=== PATIENT | female | born 1960 | race American Indian/Alaskan Native ===

== ENCOUNTER 2016-03-02 09:57 | Emergency (ER) | payer MEDICARE ==
[2016-03-02] MEDS ORDERED: TORADOL IM ONE (13:25)
[2016-03-02 14:27] LABS: Eosinophils % (Auto) 1.9 % (0.0-4.3); Hematocrit 36.7 % (30.3-42.9); Hemoglobin 11.8 gm/dl (10.1-14.3); Mean Corpuscular HGB Conc 32 % (30-34); Mean Corpuscular Hemoglobin 32 pg (28-32); Mean Corpuscular Volume 100 fl (79-97); Platelet Count 238 K/mm3 (140-440); Red Blood Count 3.68 M/mm3 (3.65-5.03); Red Cell Distribution Width 15.6 % (13.2-15.2); White Blood Count 6.2 K/mm3 (4.5-11.0)
[2016-03-02 14:49] LABS: BUN/Creatinine Ratio 7.35; Calcium 10.6 mg/dL (8.4-10.2); Potassium 4.4 mmol/L (3.6-5.0)
[2016-03-02] MEDS ORDERED: SUBLIMAZE IM ONE (17:34)
[2016-03-02] MEDS ORDERED: ZOFRAN IM ONE (17:34)
--- NOTE | 2016-03-02 17:41 | Emergency Department Report ---
HPI - General Chief Complaint: Back Pain/Injury Time Seen by Provider: 03/02/16 13:24 - HPI HPI: Room 36 The patient is a 55-year-old female presenting with a chief complaint of back pain. The patient states for the past 2-3 days she has had pain in her right flank. The patient states 5 days ago she had episodes of nausea vomiting diarrhea. Yesterday the patient developed pain in the left upper quadrant and describes it as aching in nature. Patient denies any history of fever. Patient gives her pain score of 10/10. The patient is on dialysis and does not produce urine Location: [see above] Duration: [see above] Quality: Aching Severity: 12/02 Modifying factors: [see above] Context: [see above] Mode of transportation: [not driving] ED Past Medical Hx - Past Medical History Previous Medical History?: Yes Hx Hypertension: Yes (34YRS) Hx Heart Attack/AMI: Yes (2008) Hx Diabetes: Yes (31YRS) Hx GERD: Yes Hx Renal Disease: Yes (dialysis MWF) Hx Seizures: Yes ( X 3 ON DAY OF [place]) Hx Asthma: Yes Additional medical history: CAD - Surgical History Past Surgical History?: Yes Hx Coronary Stent: Yes (stent 2010,open heart surgery 2012) Hx Open Heart Surgery: Yes Additional Surgical History: CABG recently 11-23-2012, bilateral BKA. FISTULA LEFT UPPER ARM,: Biopsy, PD catheter placement and removal - Family History Family history: no significant - Social History Smoking Status: Never Smoker Substance Use Type: Non Opiate Pain, Prescribed - Medications Home Medications: Home Medications Medication Instructions Recorded Confirmed Last Taken Type Acetaminophen [Acetaminophen 325 mg PO Q6HR PRN 12/08/12 09/25/15 04/08/15 History SUPPOS] Cyanocobalamin/Folic Acid [Vitamin 1 each PO DAILY 12/08/12 09/25/15 09/24/15 History B12-Fiidk Acid Tablet] Ezetimibe [Zetia] 10 mg PO QDAY 12/08/12 09/25/15 09/24/15 History Lisinopril [Zestril TAB] 40 mg PO QDAY 12/08/12 09/25/15 09/24/15 History Metoprolol [Lopressor TAB] 25 mg PO BID #60 tablet 10/18/14 09/25/15 04/08/15 Rx amLODIPine [Norvasc] 10 mg PO DAILY #30 tablet 10/18/14 09/25/15 09/23/15 Rx Atorvastatin [Lipitor] 40 mg PO QHS 04/09/15 09/25/15 09/24/15 History Sitagliptin Phosphate [Januvia] 100 mg PO DAILY 04/09/15 09/25/15 09/24/15 History hydrALAZINE [Apresoline TAB] 25 mg PO BID 04/09/15 09/25/15 09/23/15 History Clopidogrel [Plavix] 75 mg PO QDAY #30 tablet 04/11/15 09/25/15 09/24/15 Rx Aspirin EC [Aspirin Enteric Coated 81 mg PO QDAY #30 tablet. 04/22/1509/24/15 Rx TAB] Omeprazole [Omeprazole] 40 mg PO QDAY 06/13/15 09/25/15 09/24/15 History Biotin 5,000 mcg PO BID 09/25/15 09/25/15 09/24/15 History Calcium Acetate [Phoslo] 667 mg PO TID 09/25/15 09/25/15 09/24/15 History Cinacalcet HCl [Sensipar] 90 mg PO DAILY 09/25/15 09/25/15 09/24/15 History Ezetimibe [Zetia] 10 mg PO DAILY 09/25/15 09/25/15 09/24/15 History Ferric Citrate (Nf) [Auryxia (Nf)] 210 mg PO TID 09/25/15 09/25/15 09/24/15 History Nitroglycerin [Nitrostat] 0.4 mg SL Q5M PRN 09/25/15 09/25/15 Unknown History Pantoprazole [Protonix] 40 mg PO BID 09/25/15 09/25/15 Unknown History Sucralfate [Carafate] 1 gm PO Q6HR PRN 09/25/15 09/25/15 Unknown History Vit B Cplx #11/FA/C/Biot/Zn Ox 800 mg PO DAILY 09/25/15 09/25/15 09/22/15 History [Dialyvite with Zinc Tablet] Vit D2 50,000 units PO Q12W 09/25/15 09/25/15 Unknown History Docusate Sodium [Colace] 100 mg PO BID PRN #60 capsule 03/02/16 Unknown Rx HYDROcodone/APAP 5-325 [[place] 1 - 2 each PO Q6HR PRN #14 tablet 03/02/16 Unknown Rx 5/325] ED Review of Systems ROS: Stated complaint: BACK PAIN Other details as noted in HPI Comment: All other systems reviewed and negative Constitutional: denies: chills, fever Eyes: denies: eye pain, eye discharge, vision change ENT: denies: ear pain, throat pain Respiratory: denies: cough, shortness of breath, wheezing Cardiovascular: denies: chest pain, palpitations Endocrine: no symptoms reported Gastrointestinal: abdominal pain, nausea, vomiting, diarrhea Genitourinary: denies: urgency, dysuria, discharge Musculoskeletal: back pain Skin: denies: rash, lesions Neurological: denies: headache, weakness, paresthesias Psychiatric: denies: anxiety, depression Hematological/Lymphatic: denies: easy bleeding, easy bruising Physical Exam - Physical Exam Vital Signs: Vital Signs 03/02/16 03/02/16 10:21 14:38 Temperature 98.4 F 98.2 F Pulse Rate 93 H 78 Respiratory 22 20 Rate Blood Pressure 180/68 Blood Pressure 204/74 [Right] O2 Sat by Pulse 96 98 Oximetry Physical Exam: GENERAL: The patient is well-developed well-nourished female standing in room not appearing to be in acute distress. [] HEENT: Normocephalic. Atraumatic. Extraocular motions are intact. Patient has moist mucous membranes. NECK: Supple. Trachea midline CHEST/LUNGS: Clear to auscultation. There is no respiratory distress noted. HEART/CARDIOVASCULAR: Regular. There is no tachycardia. There is no gallop rub or murmur. ABDOMEN: Abdomen is soft, with mild discomfort to palpation in the left upper quadrant. There is no rebound or guarding. There is no tenderness elsewhere in the abdomen. Patient has normal bowel sounds. There is no abdominal distention. SKIN: There is no rash. There is no edema. There is no diaphoresis. NEURO: The patient is awake, alert, and oriented. The patient is cooperative. The patient has normal speech MUSCULOSKELETAL: There is no evidence of acute injury. ED Course Vital Signs 03/02/16 03/02/16 10:21 14:38 Temperature 98.4 F 98.2 F Pulse Rate 93 H 78 Respiratory 22 20 Rate Blood Pressure 180/68 Blood Pressure 204/74 [Right] O2 Sat by Pulse 96 98 Oximetry ED Medical Decision Making - Lab Data Result diagrams: 03/02/16 14:17 03/02/16 14:17 Laboratory Tests 03/02/16 03/02/16 14:17 14:17 WBC 6.2 RBC 3.68 Hgb 11.8 Hct 36.7 MCV 100 H MCH 32 MCHC 32 RDW 15.6 H Plt Count 238 Lymph % (Auto) 26.1 [place] % (Auto) 9.8 H Eos % (Auto) 1.9 Baso % (Auto) 1.0 Lymph # 1.6 [place] # 0.6 Eos # 0.1 Baso # 0.1 Seg Neutrophils % 61.2 Seg Neutrophils # 3.8 Sodium 135 L Potassium 4.4 Chloride 92.0 L Carbon Dioxide 23 Anion Gap 24 BUN 64 H Creatinine 8.7 H Estimated GFR 6 BUN/Creatinine Ratio 7.35 Glucose 174 H Calcium 10.6 H - Radiology Data Radiology results: report reviewed (CT abdomen and pelvis), image reviewed (CT abdomen and pelvis) CT abdomen and pelvis (read by radiologist)- there is likely mild right-sided constipation. Pancreatic duct is mildly dilated and slightly increased in size from prior study. Exact etiology is uncertain. Correlation with contrast enhanced MRI of the pancreas may be useful to shorten no small obstructing mass in the head of the pancreas. - Differential Diagnosis splenomegaly, PUD, gastritis Critical care attestation.: If time is entered above; I have spent that time in minutes in the direct care of this critically ill patient, excluding procedure time. ED Disposition Clinical Impression: Acute abdominal pain, ESRD (end stage renal disease) on dialysis, Constipation Disposition: DISCHARGED TO HOME OR SELFCARE Is pt being admited?: No Does the pt Need Aspirin: No Condition: Stable Instructions: Chronic Kidney Disease (ED) Additional Instructions: Return to the emergency department immediately should you develop worsening symptoms, fever, inability to tolerate food or liquid or any other concerns. Prescriptions: Docusate Sodium [Colace] 100 mg PO BID PRN #60 capsule PRN Reason: Constipation HYDROcodone/APAP 5-325 [[place] 5/325] 1 - 2 each PO Q6HR PRN #14 tablet PRN Reason: Pain Referrals: PRIMARY CARE, [Primary Care Provider] - 3-5 Days DAVY FRIEND MD [Staff Physician] - [facility] (Dr. Friend is a cotton broker. Please follow up with him for further evaluation of her pancreas) Time of Disposition: 18:57
--- NOTE | 2016-03-02 18:48 | Cat Scan Report ---
FINAL REPORT PROCEDURE: CT ABDOMEN PELVIS WO CON TECHNIQUE: Computerized axial tomography of the abdomen and pelvis was performed without intravenous contrast. This study is performed without intravascular contrast material and its sensitivity for abdominal and pelvic pathology, including neoplasms, inflammation, abscess, free fluid, thrombosis, arterial dissection and infarction, is reduced compared with a contrast enhanced study. HISTORY: right flank pain, left upper quadrant abdominal pain COMPARISON: CT exam dated April 17, 2015 FINDINGS: Likely CHF is present and there may be mild pulmonary edema. No pleural effusions are seen at the lung bases. Vague hypodense lesion in the superior aspect of the spleen was likely present on prior study but is better seen on today's exam. 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 Diffuse vascular calcifications are seen in the abdomen. Liver and gallbladder display no abnormality. There is mild dilation of the pancreatic duct which is slightly more prominent than prior study measuring 5 millimeters in diameter. No pancreatic mass is seen by this study Adrenal glands and abdominal aorta are normal in size. Left kidney is atretic and both kidneys have multiple hypodense and hyperdense lesions likely due to polycystic renal disease, similar to prior study. Bladder is decompressed and not well evaluated. Diffuse vascular calcifications are seen in the pelvis. Tiny inguinal hernias are seen containing fat. No free pelvic fluid is seen. No adnexal masses are seen. Mild colonic diverticula are seen without evidence of diverticulitis. There is likely mild right-sided constipation. Normal appendix is seen. IMPRESSION: There is likely mild right-sided constipation. Pancreatic duct is mildly dilated and slightly increased in size from prior study. Exact etiology is uncertain. Correlation with contrast-enhanced MRI of the pancreas may be useful to assure no small obstructing mass in the head of the pancreas. Likely CHF and possible mild pulmonary edema are seen.
[2016-03-02 19:18] VITALS: BP 157/74
== END 2016-03-02 19:17 | disposition home or self-care (01) ==
LOC: ED 09:57
DX: E11.22 Type 2 diabetes mellitus with diabetic chronic kidney disease (principal); I12.0 Hypertensive chronic kidney disease with stage 5 chronic kidney disease or end stage renal disease; N18.6 End stage renal disease; K59.00 Constipation, unspecified; I25.2 Old myocardial infarction; K21.9 Gastro-esophageal reflux disease without esophagitis; J45.909 Unspecified asthma, uncomplicated; R56.9 Unspecified convulsions; I25.10 Atherosclerotic heart disease of native coronary artery without angina pectoris; Z99.2 Dependence on renal dialysis; Z79.82 Long term (current) use of aspirin; Z95.1 Presence of aortocoronary bypass graft; Z98.890 Other specified postprocedural states
CPT/HCPCS: 36415; 74176; 80048; 85025; 96372; 99284; J1885; J2405; J3010

== ENCOUNTER 2016-07-20 19:39 | Inpatient (IN) | payer MEDICARE ==
[2016-07-20 20:31] LABS: Basophils % (Auto) 0.6 % (0.0-1.8); Eosinophils % (Auto) 2.3 % (0.0-4.3); Hematocrit 29.3 % (30.3-42.9); Hemoglobin 9.5 gm/dl (10.1-14.3); Mean Corpuscular HGB Conc 32 % (30-34); Mean Corpuscular Hemoglobin 32 pg (28-32); Mean Corpuscular Volume 99 fl (79-97); Platelet Count 149 K/mm3 (140-440); Red Blood Count 2.98 M/mm3 (3.65-5.03); Red Cell Distribution Width 17.2 % (13.2-15.2); White Blood Count 5.5 K/mm3 (4.5-11.0)
[2016-07-20 20:49] LABS: BUN/Creatinine Ratio 8.91; Calcium 9.5 mg/dL (8.4-10.2); Chloride 87.1 mmol/L (98-107); Potassium 5.2 mmol/L (3.6-5.0)
--- NOTE | 2016-07-20 21:27 | XRay Report ---
FINAL REPORT EXAM: XR CHEST ROUTINE 2V HISTORY: difficulty breathing TECHNIQUE: 2 views of the chest. PRIORS: 04/09/2015 FINDINGS: There are multiple sternotomy wires and mediastinal clips consistent with prior CABG. The pulmonary vascularity is prominent, increased from the comparison exam. The cardiac silhouette is mildly enlarged also increased from the comparison exam. There is mild blunting of the bilateral costophrenic angles. The bones and soft tissues are unremarkable. IMPRESSION: Findings are consistent with CHF with small bilateral pleural effusions.
[2016-07-21] MEDS ORDERED: ZOFRAN IV ONE (00:27)
--- NOTE | 2016-07-21 00:29 | Emergency Department Report ---
ED Chest Pain HPI - General Chief Complaint: Chest Pain Stated Complaint: CP/SUSIE/ABD PAIN Time Seen by Provider: 07/21/16 00:14 Source: patient Mode of arrival: Ambulatory Limitations: Physical Limitation - History of Present Illness Initial Comments: 56-year-old female presents to the emergency department complaining of chest pain. Patient states she began having vague mid sternal chest pain yesterday. She reports shortness of breath and nausea. Symptoms have been constant since onset. Patient states she was dialyzed last Thursday per schedule. She states that she was told after her fourth treatment that she was still 7 kg over her normal weight. There are no other complaints. MD Complaint: chest pain -: Gradual, days(s) (1) Onset: during rest Pain Location: substernal Pain Radiation: none Severity: severe Severity scale (0 -10): 8 Quality: heaviness Consistency: constant Improves With: nothing Worsens With: nothing re: nausea, dyspnea. denies: vomting, diaphoresis Treatments Prior to Arrival: none Aspirin use within the Past 7 Days: (0) No - Related Data Home Medications Medication Instructions Recorded Confirmed Last Taken Acetaminophen [Acetaminophen 325 mg PO Q6HR PRN 12/08/12 09/25/15 04/08/15 SUPPOS] Cyanocobalamin/Folic Acid [Vitamin 1 each PO DAILY 12/08/12 09/25/15 09/24/15 U15-Pbsar Acid Tablet] Ezetimibe [Zetia] 10 mg PO QDAY 12/08/12 09/25/15 09/24/15 Lisinopril [Zestril TAB] 40 mg PO QDAY 12/08/12 09/25/15 09/24/15 Atorvastatin [Lipitor] 40 mg PO QHS 04/09/15 09/25/15 09/24/15 Sitagliptin Phosphate [Januvia] 100 mg PO DAILY 04/09/15 09/25/15 09/24/15 hydrALAZINE [Apresoline TAB] 25 mg PO BID 04/09/15 09/25/15 09/23/15 Omeprazole [Omeprazole] 40 mg PO QDAY 06/13/15 09/25/15 09/24/15 Biotin 5,000 mcg PO BID 09/25/15 09/25/15 09/24/15 Calcium Acetate [Phoslo] 667 mg PO TID 09/25/15 09/25/15 09/24/15 Cinacalcet HCl [Sensipar] 90 mg PO DAILY 09/25/15 09/25/15 09/24/15 Ezetimibe [Zetia] 10 mg PO DAILY 09/25/15 09/25/15 09/24/15 Ferric Citrate (Nf) [Auryxia (Nf)] 210 mg PO TID 09/25/15 09/25/15 09/24/15 Nitroglycerin [Nitrostat] 0.4 mg SL Q5M PRN 09/25/15 09/25/15 Unknown Pantoprazole [Protonix] 40 mg PO BID 09/25/15 09/25/15 Unknown Sucralfate [Carafate] 1 gm PO Q6HR PRN 09/25/15 09/25/15 Unknown Vit B Cplx #11/FA/C/Biot/Zn Ox 800 mg PO DAILY 09/25/15 09/25/15 09/22/15 [Dialyvite with Zinc Tablet] Vit D2 50,000 units PO Q12W 09/25/15 09/25/15 Unknown Previous Rx's Medication Instructions Recorded Last Taken Type Metoprolol [Lopressor TAB] 25 mg PO BID #60 tablet 10/18/14 04/08/15 Rx amLODIPine [Norvasc] 10 mg PO DAILY #30 tablet 10/18/14 09/23/15 Rx Clopidogrel [Plavix] 75 mg PO QDAY #30 tablet 04/11/15 09/24/15 Rx Aspirin EC [Aspirin Enteric Coated 81 mg PO QDAY #30 tablet. 04/22/15 Rx TAB] Docusate Sodium [Colace] 100 mg PO BID PRN #60 capsule 03/02/16 Unknown Rx HYDROcodone/APAP 5-325 [[place] 1 - 2 each PO Q6HR PRN #14 tablet 03/02/16 Unknown Rx 5/325] Allergies Allergy/AdvReac Type Severity Reaction Status Date / Time iodine Allergy Shortness Verified 04/17/15 22:31 of Breath shellfish derived Allergy Shortness Verified 09/20/13 16:36 of Breath ROSALBA score - Rosalba Score Age > 65: (0) No Aspirin use within the Past 7 Days: (1) Yes 3 or more CAD Risk Factors: (1) Yes 2 or more Angina events in past 24 hrs: (1) Yes Known CAD with more than 50% Stenosis: (1) Yes Elevated Cardiac Markers: (1) Yes ST Deviation Greater than 0.5mm: (0) No ROSALBA Score: 5 ED Review of Systems ROS: Stated complaint: CP/SUSIE/ABD PAIN Other details as noted in HPI Comment: All other systems reviewed and negative Respiratory: shortness of breath Cardiovascular: chest pain Gastrointestinal: nausea ED Past Medical Hx - Past Medical History Previous Medical History?: Yes Hx Hypertension: Yes (34YRS) Hx Heart Attack/AMI: Yes (2008) Hx Diabetes: Yes (31YRS) Hx GERD: Yes Hx Renal Disease: Yes (dialysis ) Hx Seizures: Yes ( X 3 ON DAY OF [place]) Hx Asthma: Yes Additional medical history: CAD - Surgical History Past Surgical History?: Yes Hx Coronary Stent: Yes (stent 2010,open heart surgery 2012) Hx Open Heart Surgery: Yes Additional Surgical History: CABG recently 11-23-2012, bilateral BKA. FISTULA LEFT UPPER ARM,: Biopsy, PD catheter placement and removal - Family History Family history: no significant - Social History Smoking Status: Never Smoker Substance Use Type: None - Medications Home Medications: Home Medications Medication Instructions Recorded Confirmed Last Taken Type Acetaminophen [Acetaminophen 325 mg PO Q6HR PRN 12/08/12 09/25/15 04/08/15 History SUPPOS] Cyanocobalamin/Folic Acid [Vitamin 1 each PO DAILY 12/08/12 09/25/15 09/24/15 History E65-[id number] Acid Tablet] Ezetimibe [Zetia] 10 mg PO QDAY 12/08/12 09/25/15 09/24/15 History Lisinopril [Zestril TAB] 40 mg PO QDAY 12/08/12 09/25/15 09/24/15 History Metoprolol [Lopressor TAB] 25 mg PO BID #60 tablet 10/18/14 09/25/15 04/08/15 Rx amLODIPine [Norvasc] 10 mg PO DAILY #30 tablet 10/18/14 09/25/15 09/23/15 Rx Atorvastatin [Lipitor] 40 mg PO QHS 04/09/15 09/25/15 09/24/15 History Sitagliptin Phosphate [Januvia] 100 mg PO DAILY 04/09/15 09/25/15 09/24/15 History hydrALAZINE [Apresoline TAB] 25 mg PO BID 04/09/15 09/25/15 09/23/15 History Clopidogrel [Plavix] 75 mg PO QDAY #30 tablet 04/11/15 09/25/15 09/24/15 Rx Aspirin EC [Aspirin Enteric Coated 81 mg PO QDAY #30 tablet. 04/22/1509/24/15 Rx TAB] Omeprazole [Omeprazole] 40 mg PO QDAY 06/13/15 09/25/15 09/24/15 History Biotin 5,000 mcg PO BID 09/25/15 09/25/15 09/24/15 History Calcium Acetate [Phoslo] 667 mg PO TID 09/25/15 09/25/15 09/24/15 History Cinacalcet HCl [Sensipar] 90 mg PO DAILY 09/25/15 09/25/15 09/24/15 History Ezetimibe [Zetia] 10 mg PO DAILY 09/25/15 09/25/15 09/24/15 History Ferric Citrate (Nf) [Auryxia (Nf)] 210 mg PO TID 09/25/15 09/25/15 09/24/15 History Nitroglycerin [Nitrostat] 0.4 mg SL Q5M PRN 09/25/15 09/25/15 Unknown History Pantoprazole [Protonix] 40 mg PO BID 09/25/15 09/25/15 Unknown History Sucralfate [Carafate] 1 gm PO Q6HR PRN 09/25/15 09/25/15 Unknown History Vit B Cplx #11/FA/C/Biot/Zn Ox 800 mg PO DAILY 09/25/15 09/25/15 09/22/15 History [Dialyvite with Zinc Tablet] Vit D2 50,000 units PO Q12W 09/25/15 09/25/15 Unknown History Docusate Sodium [Colace] 100 mg PO BID PRN #60 capsule 03/02/16 Unknown Rx HYDROcodone/APAP 5-325 [[place] 1 - 2 each PO Q6HR PRN #14 tablet 03/02/16 Unknown Rx 5/325] ED Physical Exam - General Limitations: No Limitations General appearance: alert, in no apparent distress - Head Head exam: Present: atraumatic, normocephalic - Eye Eye exam: Present: normal appearance, PERRL, EOMI - ENT ENT exam: Present: normal exam, normal orophraynx, mucous membranes moist - Neck Neck exam: Present: normal inspection, full ROM. Absent: tenderness - Respiratory Respiratory exam: Present: decreased breath sounds (bilateral posterior bases). Absent: respiratory distress - Cardiovascular Cardiovascular Exam: Present: regular rate, normal rhythm, normal heart sounds - GI/Abdominal GI/Abdominal exam: Present: soft, normal bowel sounds. Absent: distended, tenderness - Extremities Exam Extremities exam: Present: normal inspection, full ROM, other (patient is s/p right BKA and left AKA). Absent: tenderness - Back Exam Back exam: Present: normal inspection, full ROM. Absent: tenderness - Neurological Exam Neurological exam: Present: alert, oriented X3. Absent: motor sensory deficit - Skin Skin exam: Present: warm, dry, intact ED Course Vital Signs 07/20/16 20:01 Temperature 98.2 F Pulse Rate 94 H Respiratory 20 Rate Blood Pressure 166/72 Blood Pressure 166/92 [Right] O2 Sat by Pulse 95 Oximetry ED Medical Decision Making - Lab Data Result diagrams: 07/20/16 20:18 07/20/16 20:18 - EKG Data -: EKG Interpreted by Ne EKG shows normal: sinus rhythm, axis, intervals, ST-T waves Rate: normal - EKG Data When compared to previous EKG there are: previous EKG unavailable Interpretation: LVH - Radiology Data Radiology results: report reviewed, image reviewed Chest x-ray shows findings consistent with CHF and bilateral pleural effusions. - Medical Decision Making Lab and imaging results reviewed and discussed with the patient. Patient has had a nonischemic ECG and 2 troponins that, although elevated, are less than previous and are unchanged. I have spoken with Dr. Wilson, nephrology. Patient is to be admitted by the hospitalist for dialysis later this morning. - Differential Diagnosis ACS, volume overload, CHF Critical care attestation.: If time is entered above; I have spent that time in minutes in the direct care of this critically ill patient, excluding procedure time. ED Disposition Clinical Impression: Chest pain, rule out acute myocardial infarction, ESRD (end stage renal disease ) on dialysis Disposition: OP ADMITTED IP TO THIS HOSP Is pt being admited?: Yes Condition: Stable Instructions: Chest Pain (ED) Referrals: HAYDEN KONG MD [Primary Care Provider] - 3-5 Days Time of Disposition: 00:29
[2016-07-21] MEDS ORDERED: D50W (25GM) IV PRN (00:57)
[2016-07-21] MEDS ORDERED: PERCOCET 5/325 PO PRN (00:57)
[2016-07-21] MEDS ORDERED: MILK OF MAGNESIA PO PRN (00:57)
[2016-07-21] MEDS ORDERED: ZOFRAN IV PRN (00:57)
[2016-07-21] MEDS ORDERED: TYLENOL PO PRN (00:57)
[2016-07-21] MEDS ORDERED: DULCOLAX PR PRN (00:57)
[2016-07-21] MEDS ORDERED: PROVENTIL IH PRN (00:57)
--- NOTE | 2016-07-21 01:05 | History and Physical Report ---
History of Present Illness Date of examination: 07/20/16 History of present illness: 56-year-old lady with history of hypertension, diabetes, coronary artery disease , end-stage renal disease on dialysis ,peptic ulcer disease comes into the emergency because of shortness of breath. She states she feels like she is drowning when she lies down, admits to PND, orthopnea. She stated she had an extra 7 kg weight and was told by dialysis nurse to go to the emergency room if she develops shortness of breath. Also complaining of chest pain in the epigastric area which she described as sharp pain, intermittent in nature lasting for 15 minutes, intensity 5/10, no radiation and she can't identify exacerbating or relieving factors. She had a stress test a few months ago Patient denies cough, abdominal pain, hematochezia, dysuria, frequency, focal weakness, dysarthria, fever chills, polydipsia polyuria, hot or cold intolerance , easy bruisability, or rash or bleeding from mucosal membrane, rhinorrhea, epistaxis, earache, tinnitus, blurry vision, eye discharge, anxiety, depression. Other review of systems negative PAST SURGICAL HISTORY: Status post CABG, bilateral BKA SOCIAL HISTORY: No alcohol, tobacco, drugs FAMILY HISTORY: Hypertension Medications and Allergies Allergies Allergy/AdvReac Type Severity Reaction Status Date / Time iodine Allergy Shortness Verified 04/17/15 22:31 of Breath shellfish derived Allergy Shortness Verified 09/20/13 16:36 of Breath Home Medications Medication Instructions Recorded Confirmed Last Taken Type Acetaminophen [Acetaminophen 325 mg PO Q6HR PRN 12/08/12 09/25/15 04/08/15 History SUPPOS] Cyanocobalamin/Folic Acid [Vitamin 1 each PO DAILY 12/08/12 09/25/15 09/24/15 History K74-Fanyo Acid Tablet] Ezetimibe [Zetia] 10 mg PO QDAY 12/08/12 09/25/15 09/24/15 History Lisinopril [Zestril TAB] 40 mg PO QDAY 12/08/12 09/25/15 09/24/15 History Metoprolol [Lopressor TAB] 25 mg PO BID #60 tablet 10/18/14 09/25/15 04/08/15 Rx amLODIPine [Norvasc] 10 mg PO DAILY #30 tablet 10/18/14 09/25/15 09/23/15 Rx Atorvastatin [Lipitor] 40 mg PO QHS 04/09/15 09/25/15 09/24/15 History Sitagliptin Phosphate [Januvia] 100 mg PO DAILY 04/09/15 09/25/15 09/24/15 History hydrALAZINE [Apresoline TAB] 25 mg PO BID 04/09/15 09/25/15 09/23/15 History Clopidogrel [Plavix] 75 mg PO QDAY #30 tablet 04/11/15 09/25/15 09/24/15 Rx Aspirin EC [Aspirin Enteric Coated 81 mg PO QDAY #30 tablet. 04/22/1509/24/15 Rx TAB] Omeprazole [Omeprazole] 40 mg PO QDAY 06/13/15 09/25/15 09/24/15 History Biotin 5,000 mcg PO BID 09/25/15 09/25/15 09/24/15 History Calcium Acetate [Phoslo] 667 mg PO TID 09/25/15 09/25/15 09/24/15 History Cinacalcet HCl [Sensipar] 90 mg PO DAILY 09/25/15 09/25/15 09/24/15 History Ezetimibe [Zetia] 10 mg PO DAILY 09/25/15 09/25/15 09/24/15 History Ferric Citrate (Nf) [Auryxia (Nf)] 210 mg PO TID 09/25/15 09/25/15 09/24/15 History Nitroglycerin [Nitrostat] 0.4 mg SL Q5M PRN 09/25/15 09/25/15 Unknown History Pantoprazole [Protonix] 40 mg PO BID 09/25/15 09/25/15 Unknown History Sucralfate [Carafate] 1 gm PO Q6HR PRN 09/25/15 09/25/15 Unknown History Vit B Cplx #11/FA/C/Biot/Zn Ox 800 mg PO DAILY 09/25/15 09/25/15 09/22/15 History [Dialyvite with Zinc Tablet] Vit D2 50,000 units PO Q12W 09/25/15 09/25/15 Unknown History Docusate Sodium [Colace] 100 mg PO BID PRN #60 capsule 03/02/16 Unknown Rx HYDROcodone/APAP 5-325 [[place] 1 - 2 each PO Q6HR PRN #14 tablet 03/02/16 Unknown Rx 5/325] Exam - Physical Exam Narrative exam: General Apperance: The patient sitting in bed no acute distress HEENT: Normocephalic, atraumatic. Pupils equally round and reactive to light, extraocular movement intact, and no sclericterus or JVD or thyromegaly or nodule. Neck supple, no carotid bruit, mucous membranes moist, no exudate or erythema Heart: S1-S2, regular is rhythm Lungs: Clear to auscultation bilaterally, breathing comfortable Abdomen: Positive bowel sounds, soft,tender lower quadrant, nondistended, no organomegaly Extremities: Below-knee amputation bilateral, No edema cyanosis clubbing Skin: no rash, nodule, warm and dry Neuro: Cranial nerves II through XII intact, speech is fluent, motor intact , sensation intact Rectal, black stool, heme positive - Constitutional Vitals: Temp Pulse Resp BP Pulse Ox 98.2 F 94 H 20 166/92 95 07/20/16 20:01 07/20/16 20:01 07/20/16 20:01 07/20/16 20:01 07/20/16 20:01 Results - Labs CBC & Chem 7: 07/22/16 04:41 07/22/16 04:41 Labs: Abnormal lab results 07/20/16 07/20/16 07/20/16 Range/Units 20:18 20:18 23:36 RBC 2.98 L (3.65-5.03) M/mm3 Hgb 9.5 L (10.1-14.3) gm/dl Hct 29.3 L (30.3-42.9) % MCV 99 H (79-97) fl RDW 17.2 H (13.2-15.2) % [place] % (Auto) 8.2 H (0.0-7.3) % Lymph # 0.8 L (1.2-5.4) K/mm3 Seg Neutrophils % 74.3 H (40.0-70.0) % Sodium 130 L (137-145) mmol/L Potassium 5.2 H (3.6-5.0) mmol/L Chloride 87.1 L (98-107) mmol/L BUN 66 H (7-17) mg/dL Creatinine 7.4 H (0.7-1.2) mg/dL Glucose 472 H (65-100) mg/dL Troponin T 0.080 H 0.088 H (0.00-0.029) ng/mL - Imaging and Cardiology EKG: image reviewed Chest x-ray: image reviewed Assessment and Plan fluid overload End-stage renal disease on dialysis Chest pain Hypertension Diabetes2 Coronary artery disease Admit to medicine Consult renal for dialysis Check Fingersticks and start insulin sliding-scale Consult cardiology, check cardiac enzymes Continue appropriate outpatient medications, start hydralazine for blood pressure control d-dimer positive, check v/q scan
[2016-07-21] MEDS ORDERED: ZOFRAN ONE (02:24)
--- NOTE | 2016-07-21 04:13 | Admit Criteria Form ---
Admission Criteria Documentation: CHEST PAIN Clinical Indications for Admission to Inpatient Care (Place 'X' for any and all applicable criteria): Admission is indicated for chest pain and ANY ONE of the following(1)(2)(3)(4)(5 ): [ ]I. Angina with acute coronary syndrome (Also use Myocardial Infarction or Angina guideline) [ ]II. Hemodynamic instability [X ]III. Angina needing acute intervention as indicated by ALL of the following (11)(12): [ X]a) Unstable angina is present as indicated by angina that is ANY ONE of the following: [ X]i) New onset [ ]ii) Nocturnal [ ]iii) Prolonged at rest [ ]iv) Progressive [ X]b) Angina warrants acute intervention as indicated by ANY ONE of the following: [ ]i) Recurrent angina (e.g, not responding as previously to treatment) [ ]ii) Angina at rest or with low-level activities despite initial medical therapy [ ]iii) New or presumably new ST-segment depression on ECG [X ]iv) Signs or symptoms of heart failure (eg, dyspnea, pulmonary edema) [ ]v) New or worsening mitral regurgitation [ ]vi) Hemodynamic instability [ ]vii) Dangerous arrhythmia (eg, sustained ventricular tachycardia) [ ]viii) History of percutaneous coronary intervention within 6 months [ ]ix) History of coronary artery bypass graft surgery [ X]x) ROSALBA risk score of 2 or greater[A] [ ]xi) History of Diabetes(14) [ ]xii) High-risk cardiac ischemia findings on noninvasive testing (e.g, echocardiogram, treadmill testing, nuclear scan) [ ]xiii) Chronic renal insufficiency (ie, estimated GFR less than 60 mL/min/1.732m) [ ]xiv) Left ventricular ejection fraction less than 40% [ ]IV. Evidence of NE (eg, cardiac biomarkers positive, ST-segment elevation on ECG) also use Myocardial Infarction Criteria Form. [ ]V. Pulmonary edema [ ]. Respiratory distress [ ]VII. Chest pain indicative of serious diagnosis other than coronary artery disease (eg, aortic dissection) [ ]VIII. Contraindications and/or Inappropriate clinical situations for Observational Care in patients with Chest Pain, when ANY ONE of the following is required: [ ]a) Patient with risk factor for pulmonary embolism, acute coronary syndrome and myocardial infarction (18) [ ]b) Patient with Pulmonary embolism require an average LOS of 4.3 days, therefore emergency department observation management is inappropriate 18,23 [ ]c) Painful condition/s in the elderly, have the highest rate of recidivism after emergency department observation management (10.8%) 20,21,22 [ ]d) Elevated cardiac biomarker requires intensive and exhaustive care (19) [ ]IX. General contraindications and/or Inappropriate clinical situations for Observational Care in patients with Chest Pain, when ANY ONE of the following is required: [ ]a) Prediction of prolongation of LOS based on ANY ONE of the following may be considered as a contraindication for observational care 2, 3, 4, 5, 6, 7, 8, 9, 10, 11 [ ]i) Age > 65 yrs. [ ]ii) Patient arriving by ambulance [ ]iii) Patient with high acuity [ ]iv) Patient requiring vital sign monitoring [ ]v) Patient on IV medication [ ]b) Systolic blood pressures 180mmHg 3,12 [ ]c) Patient with altered mental status including delirium and other alteration of consciousness, (3) [ ]d) Patient whose discharge disposition will be to a snf home or rehabilitation home should not be managed in Emergency Department Observation Unit. CMS rule requires 3 days hospital stay before such placement. 3,13 [ ]e) Patient with failure to thrive due to broad array of etiologies 3,16,17 [ ]f) Inability to ambulate 3,14 Extended stay beyond goal length of stay may be needed for (1)(28): [ ]a) Specific condition diagnosed after evaluation (eg, pulmonary embolism, aortic dissection) [ ]b) Unstable angina [ ]c) Continued suspicion of acute coronary syndrome with inability to complete needed cardiac evaluation (eg, patient clinically unable to undergo stress testing) [ ]d) Myocardial infarction (Contents from ANGINA and CHEST PAIN clinical indications for admission to inpatient care have been integrated in this form) The original [employer] content created by [employer] has been revised. The portions of the content which have been revised are identified through the use of italic text or in bold, and [facility] has neither reviewed nor approved the modified material. All other unmodified content is copyright [employer]. Please see references footnoted in the original [facility] edition 2016 Admission Criteria Met: Yes
[2016-07-21 05:49] LABS: Creatine Kinase MB 2.3 ng/mL (0.0-4.0)
--- NOTE | 2016-07-21 11:50 | Progress Note ---
Assessment and Plan Assessment and plan: Chest pain. Troponin mildly elevated at 0.080. Cardiology consulted ESRD on hemodialysis, Thu, Wednesdays and Fridays. She is due for dialysis today. Nephrology following Hypertension. BP elevated. Resume home medications - amlodipine, Metoprolol, Hydralazine Diabetes mellitus type 2 Coronary artery disease, On Pklavix, metoprolol s/p bilateral BKA Full code status, History Interval history: patient admitted for chest pain, No shortness of breath Hospitalist Physical - Physical exam Narrative exam: Appearance: Not in acute distress, lying in bed HEENT: normocephalic, atraumatic Neck : supple, no JVD Lungs: Clear to auscultation bilaterally, no crackles or wheeze Heart : S1 and S2 regular, no murmurs, rubs or gallop Abdomen: soft, non tender, non distended, normal bowel sounds Extremities: No edema, no clubbing, no cyanosis Neuro: Awake, alert, oriented 3, moves all extremities, Psych: normal mood - Constitutional Vitals: Temp Pulse Resp BP Pulse Ox 97.1 F L 67 18 162/73 91 07/21/16 08:49 07/21/16 08:49 07/21/16 08:49 07/21/16 08:49 07/21/16 08:49 Results - Labs CBC & Chem 7: 07/20/16 20:18 07/20/16 20:18 Labs: Laboratory Last Values WBC 5.5 K/mm3 (4.5-11.0) 07/20/16 20:18 RBC 2.98 M/mm3 (3.65-5.03) L 07/20/16 20:18 Hgb 9.5 gm/dl (10.1-14.3) L 07/20/16 20:18 Hct 29.3 % (30.3-42.9) L 07/20/16 20:18 MCV 99 fl (79-97) H 07/20/16 20:18 MCH 32 pg (28-32) 07/20/16 20:18 MCHC 32 % (30-34) 07/20/16 20:18 RDW 17.2 % (13.2-15.2) H 07/20/16 20:18 Plt Count 149 K/mm3 (140-440) 07/20/16 20:18 Lymph % (Auto) 14.6 % (13.4-35.0) 07/20/16 20:18 [place] % (Auto) 8.2 % (0.0-7.3) H 07/20/16 20:18 Eos % (Auto) 2.3 % (0.0-4.3) 07/20/16 20:18 Baso % (Auto) 0.6 % (0.0-1.8) 07/20/16 20:18 Lymph # 0.8 K/mm3 (1.2-5.4) L 07/20/16 20:18 [place] # 0.4 K/mm3 (0.0-0.8) 07/20/16 20:18 Eos # 0.1 K/mm3 (0.0-0.4) 07/20/16 20:18 Baso # 0.0 K/mm3 (0.0-0.1) 07/20/16 20:18 Seg Neutrophils % 74.3 % (40.0-70.0) H 07/20/16 20:18 Seg Neutrophils # 4.1 K/mm3 (1.8-7.7) 07/20/16 20:18 Sodium 130 mmol/L (137-145) L 07/20/16 20:18 Potassium 5.2 mmol/L (3.6-5.0) H 07/20/16 20:18 Chloride 87.1 mmol/L (98-107) L 07/20/16 20:18 Carbon Dioxide 23 mmol/L (22-30) 07/20/16 20:18 Anion Gap 25 mmol/L 07/20/16 20:18 BUN 66 mg/dL (7-17) H 07/20/16 20:18 Creatinine 7.4 mg/dL (0.7-1.2) H 07/20/16 20:18 Estimated GFR 7 ml/min 07/20/16 20:18 BUN/Creatinine Ratio 8.91 % 07/20/16 20:18 Glucose 472 mg/dL (65-100) H 07/20/16 20:18 POC Glucose 389 (70-105) H 07/20/16 19:55 Calcium 9.5 mg/dL (8.4-10.2) 07/20/16 20:18 Total Creatine Kinase 39 units/L (30-135) 07/21/16 04:26 CK-MB (CK-2) 2.3 ng/mL (0.0-4.0) 07/21/16 04:26 CK-MB (CK-2) Rel Index 5.8 (0-4) H 07/21/16 04:26 Troponin T 0.082 ng/mL (0.00-0.029) H 07/21/16 04:26 Triglycerides 119 mg/dL (2-149) 07/20/16 20:18 Cholesterol 141 mg/dL (50-199) 07/20/16 20:18 LDL Cholesterol Direct 67 mg/dL (50-130) 07/20/16 20:18 HDL Cholesterol 51 mg/dL (40-59) 07/20/16 20:18 Cholesterol/HDL Ratio 2.76 % 07/20/16 20:18
[2016-07-21 12:08] LABS: Hematocrit 28.3 % (30.3-42.9); Hemoglobin 9.1 gm/dl (10.1-14.3); Mean Corpuscular HGB Conc 32 % (30-34); Mean Corpuscular Hemoglobin 32 pg (28-32); Mean Corpuscular Volume 100 fl (79-97); Platelet Count 154 K/mm3 (140-440); Red Blood Count 2.84 M/mm3 (3.65-5.03); Red Cell Distribution Width 17.5 % (13.2-15.2)
[2016-07-21] MEDS ORDERED: NACL 0.9% 100 ML IV PRN (12:09)
[2016-07-21] MEDS ORDERED: PROCRIT SUB-Q PRN (12:12)
[2016-07-21 12:26] LABS: Creatine Kinase MB 2.1 ng/mL (0.0-4.0)
[2016-07-21 12:28] LABS: BUN/Creatinine Ratio 9.26; Calcium 9.2 mg/dL (8.4-10.2); Chloride 85.2 mmol/L (98-107)
[2016-07-21] MEDS: LOVENOX SUB-Q SCH ×2 (12:50→19:32)
[2016-07-21] MEDS: NORVASC PO SCH ×2 (12:52→19:31)
[2016-07-21] MEDS: PLAVIX PO SCH ×2 (12:52→19:31)
--- NOTE | 2016-07-21 14:04 | Consultation ---
History of Present Illness - Reason for Consult Consult date: 07/21/16 end stage renal disease, hyperkalemia Requesting physician: LORI DINH - History of Present Illness This is a 56 year old female with PMH of ESRD on HD, hypertension, diabetes mellitus type 2 insulin dependent, peptic ulcer disease, CAD, PVD s/p bilateral BKA who presented to [facility] ([facility]) with complaints of chest pain (midsternal, intermittent, pressure feeling), shortness of breath, nausea, vomiting, left lower quadrant abdominal pain, and generalized weakness. Patient reports that her shortness of breath worsened making her feel like she was drowning when lying down so she avoided laying flat, used 3 pillows to minimize her shortness of breath. Status post Chest X Ray last night showed findings consistent with CHF with small bilateral pleural effusion. This patient undergoes outpatient HD at [facility] every Thursday, Thursday, and Thursday. Last HD treatment was Thursday07/18/16. Patient states she was 7 kg over her dry weight after her HD treatment on 07/18/16 and was advised to go to the hospital if she developed shortness of breath. We were consulted to evaluate this patient who has ESRD and requires HD. Patient seen in her room with head of bed elevated and two pillows behind her head. Patient denies any chest pain or abdominal pain at this time. Past History Past Medical History: anemia, CAD, diabetes (insulin dependent), dialysis, ESRD , hypertension, PVD (s/p BKA), other (peptic ulcer disease) Past Surgical History: Other (Bilateral BKA; left AVF placement) Social history: denies: smoking, alcohol abuse Medications and Allergies Allergies Allergy/AdvReac Type Severity Reaction Status Date / Time iodine Allergy Shortness Verified 04/17/15 22:31 of Breath shellfish derived Allergy Shortness Verified 09/20/13 16:36 of Breath Home Medications Medication Instructions Recorded Confirmed Last Taken Type Acetaminophen [Acetaminophen 325 mg PO Q6HR PRN 12/08/12 09/25/15 04/08/15 History SUPPOS] Cyanocobalamin/Folic Acid [Vitamin 1 each PO DAILY 12/08/12 09/25/15 09/24/15 History C26-[id number] Acid Tablet] Ezetimibe [Zetia] 10 mg PO QDAY 12/08/12 09/25/15 09/24/15 History Lisinopril [Zestril TAB] 40 mg PO QDAY 12/08/12 09/25/15 09/24/15 History Metoprolol [Lopressor TAB] 25 mg PO BID #60 tablet 10/18/14 09/25/15 04/08/15 Rx amLODIPine [Norvasc] 10 mg PO DAILY #30 tablet 10/18/14 09/25/15 09/23/15 Rx Atorvastatin [Lipitor] 40 mg PO QHS 04/09/15 09/25/15 09/24/15 History Sitagliptin Phosphate [Januvia] 100 mg PO DAILY 04/09/15 09/25/15 09/24/15 History hydrALAZINE [Apresoline TAB] 25 mg PO BID 04/09/15 09/25/15 09/23/15 History Clopidogrel [Plavix] 75 mg PO QDAY #30 tablet 04/11/15 09/25/15 09/24/15 Rx Aspirin EC [Aspirin Enteric Coated 81 mg PO QDAY #30 tablet. 04/22/1509/24/15 Rx TAB] Omeprazole [Omeprazole] 40 mg PO QDAY 06/13/15 09/25/15 09/24/15 History Biotin 5,000 mcg PO BID 09/25/15 09/25/15 09/24/15 History Calcium Acetate [Phoslo] 667 mg PO TID 09/25/15 09/25/15 09/24/15 History Cinacalcet HCl [Sensipar] 90 mg PO DAILY 09/25/15 09/25/15 09/24/15 History Ezetimibe [Zetia] 10 mg PO DAILY 09/25/15 09/25/15 09/24/15 History Ferric Citrate (Nf) [Auryxia (Nf)] 210 mg PO TID 09/25/15 09/25/15 09/24/15 History Nitroglycerin [Nitrostat] 0.4 mg SL Q5M PRN 09/25/15 09/25/15 Unknown History Pantoprazole [Protonix] 40 mg PO BID 09/25/15 09/25/15 Unknown History Sucralfate [Carafate] 1 gm PO Q6HR PRN 09/25/15 09/25/15 Unknown History Vit B Cplx #11/FA/C/Biot/Zn Ox 800 mg PO DAILY 09/25/15 09/25/15 09/22/15 History [Dialyvite with Zinc Tablet] Vit D2 50,000 units PO Q12W 09/25/15 09/25/15 Unknown History Docusate Sodium [Colace] 100 mg PO BID PRN #60 capsule 03/02/16 Unknown Rx HYDROcodone/APAP 5-325 [[employer] [place] [employer] [place] 1 - 2 each PO Q6HR PRN #14 tablet 03/02/16 Unknown Rx 5/325] Active Meds: Active Medications Acetaminophen (Tylenol) 650 mg PO Q4H PRN PRN Reason: Pain MILD(1-3)/Fever >100.5/[place] Albuterol (Proventil) 2.5 mg IH Q3HRT PRN PRN Reason: Shortness Of Breath Amlodipine Besylate (Norvasc) 10 mg PO QDAY [facility] Last Admin: 07/21/16 12:52 Dose: 10 mg Bisacodyl (Dulcolax) 10 mg [place] QDAY PRN PRN Reason: Constipation unrelieved by MOM Clopidogrel Bisulfate (Plavix) 75 mg PO QDAY [facility] Last Admin: 07/21/16 12:52 Dose: 75 mg Dextrose (D50w (25gm)) 50 ml IV PRN PRN PRN Reason: Hypoglycemia Enoxaparin Sodium (Lovenox) 30 mg SUB-Q QDAY [facility] Last Admin: 07/21/16 12:50 Dose: 30 mg Epoetin Ishmael (Procrit) 10,000 unit SUB-Q [place] PRN PRN Reason: hemodialysis Sodium Chloride (Nacl 0.9%) 100 mls @ 999 mls/hr IV EVERARDO PRN PRN Reason: Hypotension Insulin Human Isoph/Insulin Regular (Novolin 70/30) 20 unit SUB-Q BIDDIAB [facility] Magnesium Hydroxide (Milk Of Magnesia) 30 ml PO Q4H PRN PRN Reason: Constipation Ondansetron HCl (Zofran) 4 mg IV Q8H PRN PRN Reason: N/V unrelieved by Reglan Oxycodone/Acetaminophen (Percocet 5/325) 1 tab PO Q6H PRN PRN Reason: Pain, Moderate (4-6) Last Admin: 07/21/16 03:08 Dose: 1 tab Review of Systems Constitutional: fatigue, weakness, no fever, no chills Ears, nose, mouth and throat: no ear pain, no headache Cardiovascular: chest pain, shortness of breath, dyspnea on exertion, no lightheadedness Respiratory: shortness of breath, dyspnea on exertion Gastrointestinal: abdominal pain, nausea, vomiting, no diarrhea, no constipation , no hematemesis, no melena Genitourinary Female: no dysuria, no hematuria Musculoskeletal: prior amputations (Bilateral BKA with prosthesis) Integumentary: no rash, no wounds Neurological: no numbness, no tingling, no headaches, no change in speech, no loss of vision Psychiatric: no anxiety, no depression Endocrine: fatigue Exam - Vital Signs Vital signs: Vital Signs Temp Pulse Resp BP Pulse Ox 98.2 F 73 20 166/92 95 07/20/16 20:01 07/20/16 20:01 07/20/16 20:01 07/20/16 20:01 07/20/16 20:01 - General Appearance General appearance: well-nourished (no acute distress) EENT: ATNC Neck: Present: neck supple Respiratory: Other (Lung sounds decreased bilaterally, unlabored (head of bed elevated with two pillows in place behind her head)) Heart: regular, S1S2, other (ACCESS: Left AVF with positive thrill and bruit noted) Gastrointestinal: Present: normoactive bowel sounds. Absent: tenderness Integumentary: warm and dry Neurologic: alert and oriented x3 Musculoskeletal: Present: other (Bilateral BKA noted) Psychiatric: mood/affect appropriate, cooperative Results - Lab Results 07/21/16 11:42 07/21/16 11:42 Most recent lab results Calcium 9.2 mg/dL (8.4-10.2) 07/21/16 11:42 Assessment and Plan - Patient Problems (1) Chest pain Current Visit: Yes Status: Acute Qualifiers: Chest pain type: C Ischemic chest pain type: I Plan to address problem: Cardiology consulted, follow up recs (2) Hyperkalemia Current Visit: Yes Status: Acute Plan to address problem: Hemodialysis today for ultrafiltration and clearance Hyperkalemia worsened in setting of renal failure and hyperglycemia HD prescription adjusted to [facility] [place] for hyperkalemia management (3) ESRD (end stage renal disease) on dialysis Current Visit: Yes Status: Chronic Plan to address problem: Hemodialysis today for ultrafiltration and clearance HD prescription adjusted to [facility] [place] for hyperkalemia management Left AVF with positive thrill and bruit noted Assess need for HD on daily basis Phosphorus level pending Renally dose medications Obtain daily weight This patient undergoes outpatient HD at [facility] every Thursday , Thursday, and Thursday. Strict intake and output Renal plan discussed with Dr Wilson Continue supportive therapy (4) Anemia in end-stage renal disease Current Visit: No Status: Acute Plan to address problem: Epogen dosing during HD for anemia management (5) Hypertensive heart and CKD, ESRD on dialysis Current Visit: No Status: Chronic Plan to address problem: Resume home blood pressure medications Hemodialysis today for ultrafiltration and clearance Monitor blood pressure daily, will adjust medications if needed (6) Hyponatremia Current Visit: Yes Status: Acute Plan to address problem: Hyponatremia secondary to hypervolemic hyponatremia worsened in setting of volume overload and hyperglycemia Maintain fluid restriction of 1 liter per day (7) Diabetes mellitus, type 2 Current Visit: No Status: Chronic Qualifiers: Diabetes mellitus complication status: D Diabetes mellitus complication detail: D Diabetic retinopathy severity: D Proliferative retinopathy type: P Diabetes mellitus macular edema: D Diabetes mellitus 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
--- NOTE | 2016-07-21 16:28 | Consultation ---
History of Present Illness Consult reason: chest pain, shortness of breath History of present illness: This is a 56 year old female with PMH of ESRD on HD, hypertension, diabetes mellitus type 2 insulin dependent, peptic ulcer disease, CAD, PVD s/p bilateral BKA who presented to [facility] ([facility]) with complaints of chest pain (midsternal, intermittent, pressure feeling), shortness of breath, nausea, vomiting, left lower quadrant abdominal pain, and generalized weakness. Patient reports that her shortness of breath worsened making her feel like she was drowning when lying down so she avoided laying flat, used 3 pillows to minimize her shortness of breath. Status post Chest X Ray last night showed findings consistent with CHF with small bilateral pleural effusion. This patient undergoes outpatient HD at [facility] every Thursday, Thursday, and Thursday. Last HD treatment was Thursday07/18/16. Patient states she was 7 kg over her dry weight after her HD treatment on 07/18/16 and was advised to go to the hospital if she developed shortness of breath. Patient has a history of coronary artery bypass graft surgery done at [facility] in 2014. She has been followed by Billy Hernandez([facility]) who practices at the [facility]. Patient had myocardial perfusion imaging studies done 2013 which revealed a fixed defect. She had echocardiogram then which showed left ventricular hypertrophy of moderate severity, left atrial enlargement and ejection fraction of 65%. Patient has a chronic kidney disease since 2007. She has undergone transplant evaluation. This transplant evaluation team advised her to stop Plavix. She is supposed to have cardiac workup in July of this year by Dr. Garcia for preparing her for renal transplant. Past History Past Medical History: anemia, CAD, diabetes (insulin dependent), dialysis, ESRD , hypertension, PVD (s/p BKA), other (peptic ulcer disease) Past Surgical History: Other (Bilateral BKA; left AVF placement) Social history: denies: smoking, alcohol abuse Medications and Allergies Allergies Allergy/AdvReac Type Severity Reaction Status Date / Time iodine Allergy Shortness Verified 04/17/15 22:31 of Breath shellfish derived Allergy Shortness Verified 09/20/13 16:36 of Breath Home Medications Medication Instructions Recorded Confirmed Last Taken Type Acetaminophen [Acetaminophen 325 mg PO Q6HR PRN 12/08/12 09/25/15 04/08/15 History SUPPOS] Cyanocobalamin/Folic Acid [Vitamin 1 each PO DAILY 12/08/12 09/25/15 09/24/15 History S15-Fckoh Acid Tablet] Ezetimibe [Zetia] 10 mg PO QDAY 12/08/12 09/25/15 09/24/15 History Lisinopril [Zestril TAB] 40 mg PO QDAY 12/08/12 09/25/15 09/24/15 History Metoprolol [Lopressor TAB] 25 mg PO BID #60 tablet 10/18/14 09/25/15 04/08/15 Rx amLODIPine [Norvasc] 10 mg PO DAILY #30 tablet 10/18/14 09/25/15 09/23/15 Rx Atorvastatin [Lipitor] 40 mg PO QHS 04/09/15 09/25/15 09/24/15 History Sitagliptin Phosphate [Januvia] 100 mg PO DAILY 04/09/15 09/25/15 09/24/15 History hydrALAZINE [Apresoline TAB] 25 mg PO BID 04/09/15 09/25/15 09/23/15 History Clopidogrel [Plavix] 75 mg PO QDAY #30 tablet 04/11/15 09/25/15 09/24/15 Rx Aspirin EC [Aspirin Enteric Coated 81 mg PO QDAY #30 tablet. 04/22/1509/24/15 Rx TAB] Omeprazole [Omeprazole] 40 mg PO QDAY 06/13/15 09/25/15 09/24/15 History Biotin 5,000 mcg PO BID 09/25/15 09/25/15 09/24/15 History Calcium Acetate [Phoslo] 667 mg PO TID 09/25/15 09/25/15 09/24/15 History Cinacalcet HCl [Sensipar] 90 mg PO DAILY 09/25/15 09/25/15 09/24/15 History Ezetimibe [Zetia] 10 mg PO DAILY 09/25/15 09/25/15 09/24/15 History Ferric Citrate (Nf) [Auryxia (Nf)] 210 mg PO TID 09/25/15 09/25/15 09/24/15 History Nitroglycerin [Nitrostat] 0.4 mg SL Q5M PRN 09/25/15 09/25/15 Unknown History Pantoprazole [Protonix] 40 mg PO BID 09/25/15 09/25/15 Unknown History Sucralfate [Carafate] 1 gm PO Q6HR PRN 09/25/15 09/25/15 Unknown History Vit B Cplx #11/FA/C/Biot/Zn Ox 800 mg PO DAILY 09/25/15 09/25/15 09/22/15 History [Dialyvite with Zinc Tablet] Vit D2 50,000 units PO Q12W 09/25/15 09/25/15 Unknown History Docusate Sodium [Colace] 100 mg PO BID PRN #60 capsule 03/02/16 Unknown Rx HYDROcodone/APAP 5-325 [[place] 1 - 2 each PO Q6HR PRN #14 tablet 03/02/16 Unknown Rx 5/325] Active Meds: Active Medications Acetaminophen (Tylenol) 650 mg PO Q4H PRN PRN Reason: Pain MILD(1-3)/Fever >100.5/[place] Albuterol (Proventil) 2.5 mg IH Q3HRT PRN PRN Reason: Shortness Of Breath Amlodipine Besylate (Norvasc) 10 mg PO QDAY JACI Bisacodyl (Dulcolax) 10 mg GA QDAY PRN PRN Reason: Constipation unrelieved by [facility] Clopidogrel Bisulfate (Plavix) 75 mg PO QDAY [facility] Dextrose (D50w (25gm)) 50 ml IV PRN PRN PRN Reason: Hypoglycemia Enoxaparin Sodium (Lovenox) 30 mg SUB-Q QDAY [facility] Epoetin Ishmael (Procrit) 10,000 unit SUB-Q [place]O PRN PRN Reason: hemodialysis Sodium Chloride (Nacl 0.9%) 100 mls @ 999 mls/hr IV EVERARDO PRN PRN Reason: Hypotension Insulin Aspart (Novolog) 0 units SUB-Q ACHS JACI PRN Reason: Protocol Insulin Human Isoph/Insulin Regular (Novolin 70/30) 20 unit SUB-Q BIDDIAB [facility] Last Admin: 07/21/16 13:39 Dose: 20 unit Magnesium Hydroxide (Milk Of Magnesia) 30 ml PO Q4H PRN PRN Reason: Constipation Ondansetron HCl (Zofran) 4 mg IV Q8H PRN PRN Reason: N/V unrelieved by Reglan Oxycodone/Acetaminophen (Percocet 5/325) 1 tab PO Q6H PRN PRN Reason: Pain, Moderate (4-6) Last Admin: 07/21/16 03:08 Dose: 1 tab Review of Systems All systems: negative (as mentioned in the present illness) Physical Examination Vital Signs Temp Pulse Resp BP Pulse Ox 98.2 F 73 20 166/92 95 07/20/16 20:01 07/20/16 20:01 07/20/16 20:01 07/20/16 20:01 07/20/16 20:01 General appearance: no acute distress HEENT: Positive: Mucus Membranes Moist Neck: Positive: neck supple. Negative: JVD/HJR Cardiac: Positive: Regular Rate Lungs: Positive: Normal Breath Sounds Abdomen: Positive: Soft, Active Bowel Sounds Extremities: Present: Other (Bilateral amputee.) Results 07/21/16 11:42 07/21/16 11:42 Cardiac Enzymes 07/21/16 07/21/16 Range/Units 04:26 11:42 CK-MB (CK-2) 2.3 2.1 (0.0-4.0) ng/mL CBC 07/21/16 Range/Units 11:42 WBC 5.0 (4.5-11.0) K/mm3 RBC 2.84 L (3.65-5.03) M/mm3 Hgb 9.1 L (10.1-14.3) gm/dl Hct 28.3 L (30.3-42.9) % Plt Count 154 (140-440) K/mm3 Comprehensive Metabolic Panel 07/21/16 Range/Units 11:42 Sodium 130 L (137-145) mmol/L Potassium 6.0 H (3.6-5.0) mmol/L Chloride 85.2 L (98-107) mmol/L Carbon Dioxide 26 (22-30) mmol/L BUN 76 H (7-17) mg/dL Creatinine 8.2 H (0.7-1.2) mg/dL Glucose 549 H* (65-100) mg/dL Calcium 9.2 (8.4-10.2) mg/dL - Imaging and Cardiology EKG: report reviewed Assessment and Plan Chest pain. Troponin mildly elevated at 0.088, 0.082 and 0.091 May be due to CKD+CHF. NSTEMI 2 ESRD on hemodialysis, Thu, Wednesdays and Fridays. She is due for dialysis today. Seen while pt was having HD Patient is being worked up renal transplant. Hypertension. BP elevated. Resume home medications - amlodipine, Metoprolol, Hydralazine Diabetes mellitus type 2 Coronary artery disease, CABG 2014 at [facility] [place] s/p bilateral BKA
[2016-07-21] MEDS: NOVOLOG SUB-Q SCH ×2 (16:40→23:00)
[2016-07-21] MEDS ORDERED: PROCRIT ONE (18:05)
[2016-07-22 05:27] LABS: Basophils % (Auto) 0.9 % (0.0-1.8); Eosinophils % (Auto) 5.9 % (0.0-4.3); Hematocrit 27.8 % (30.3-42.9); Hemoglobin 9.1 gm/dl (10.1-14.3); Mean Corpuscular HGB Conc 33 % (30-34); Mean Corpuscular Hemoglobin 32 pg (28-32); Mean Corpuscular Volume 98 fl (79-97); Platelet Count 161 K/mm3 (140-440); Red Blood Count 2.83 M/mm3 (3.65-5.03); White Blood Count 4.8 K/mm3 (4.5-11.0)
[2016-07-22 05:43] LABS: BUN/Creatinine Ratio 7.5; Calcium 8.9 mg/dL (8.4-10.2); Chloride 95.1 mmol/L (98-107); Potassium 4.4 mmol/L (3.6-5.0)
--- NOTE | 2016-07-22 09:42 | Progress Note ---
Assessment and Plan (1) Chest pain Current Visit: Yes Status: Acute Qualifiers: Chest pain type: C Ischemic chest pain type: I Plan to address problem: Cardiology consulted, follow up recs (2) Hyperkalemia Current Visit: Yes Status: Acute Plan to address problem: resolve posy HD (3) ESRD (end stage renal disease) on dialysis Current Visit: Yes Status: Chronic Plan to address problem: HD agaon today for dry UF only, fluid removal goal 3-4 L as tolerated Assess need for HD on daily basis Renally dose medications Obtain daily weight Strict intake and output (4) Anemia in end-stage renal disease Current Visit: No Status: Acute Plan to address problem: Epogen dosing during HD for anemia management (5) Hypertensive heart and CKD, ESRD on dialysis Current Visit: No Status: Chronic Plan to address problem: Resume home blood pressure medications UF with HD (6) Hyponatremia Current Visit: Yes Status: Acute Plan to address problem: Maintain fluid restriction of 1 liter per day (7) Diabetes mellitus, type 2 Current Visit: No Status: Chronic Qualifiers: Diabetes mellitus complication status: D Diabetes mellitus complication detail: D Diabetic retinopathy severity: D Proliferative retinopathy type: P Diabetes mellitus macular edema: D Diabetes mellitus prison insulin use : D Laterality: L Chronic kidney disease stage: C Plan to address problem: As per primary team Subjective Date of service: 07/22/16 Principal diagnosis: ESRD Interval history: tolerated HD well yesterday, breathing significantly improved after treatment Objective - Vital Signs Vital signs: Vital Signs - 12hr 07/22/16 07/22/16 07/22/16 00:30 04:20 09:12 Temperature 98 F 98.4 F 97.7 F Pulse Rate [ 79 Left] Pulse Rate [ 72 61 Right Radial] Respiratory 18 18 18 Rate Blood Pressure 152/76 145/67 175/71 [Left Arm] O2 Sat by Pulse 96 98 91 Oximetry 07/22/16 09:34 Temperature Pulse Rate [ Left] Pulse Rate [ Right Radial] Respiratory Rate Blood Pressure [Left Arm] O2 Sat by Pulse 91 Oximetry - General Appearance General appearance: well-developed, well-nourished EENT: ATNC, PERRL, mucous membranes moist Neck: no JVD, no carotid bruit Respiratory: Present: Rales, Decreased Breath Sounds Cardiology: regular, S1S2 Gastrointestinal: normoactive bowel sounds, no tenderness, no distended, no masses Integumentary: no rash, warm and dry Neurologic: no focal deficit, no asterixis, alert and oriented x3 Musculoskeletal: other (L AVF with + thrill and bruit, no edema in BLE) Psychiatric: mood/affect appropriate, cooperative - Lab 07/22/16 04:41 07/22/16 04:41 Most recent lab results Calcium 8.9 mg/dL (8.4-10.2) 07/22/16 04:41 Phosphorus 5.90 mg/dL (2.5-4.5) H 07/21/16 Unknown
[2016-07-22] MEDS ORDERED: PROCRIT ONE (11:47)
[2016-07-22] MEDS ORDERED: NACL 0.9% 1000 ML 2,000 ML ONE (11:48)
--- NOTE | 2016-07-22 14:05 | Progress Note ---
Assessment and Plan Chest pain, atypical Pain currently resolved. ECG with NAF. Troponin mildly elevated but negative for AMI, flat, normal CK/MB ESRD on hemodialysis Patient is being worked up renal transplant. Hypertension Diabetes mellitus type 2 Coronary artery disease, CABG 2014 at [facility] [place] s/p bilateral BKA Currently stable cardiac status. Pt states chest pain has resolved and she recently had stress test 6 months ago and also noted to have negative stress test 03/2015. Resume home medications - amlodipine, lisinopril, Metoprolol, Hydralazine. Pt may discharge home from cardiology standpoint. Recommend the patient follow-up with her primary hiv counselor within 1 week of hospital discharge. Patient verbalizes understanding and states that she will follow-up as early as this coming Thursday. The patient has been seen in conjunction with Dr. Bowman who agrees with the assessment and plan of care. Subjective Date of service: 07/22/16 Principal diagnosis: ESRD Interval history: Pt seen in HD, no complaints. VSS. Objective Last Vital Signs Temp 98.4 F 07/22/16 10:00 Pulse 72 07/22/16 13:30 Resp 18 07/22/16 10:00 BP 172/91 07/22/16 13:30 Pulse Ox 91 07/22/16 09:34 - Physical Examination General: No Apparent Distress HEENT: Positive: PERRL, Mucus Membranes Moist Neck: Positive: neck supple. Negative: JVD/HJR Cardiac: Positive: Reg Rate and Rhythm, S1/S2 Lungs: Positive: Normal Exam, clear to auscultation, Normal Breath Sounds Neuro: Positive: Grossly Intact, Cranial Nerve 2-12 Intact Abdomen: Positive: Soft, Active Bowel Sounds. Negative: Tender Skin: Positive: Clear. Negative: Rash, Wound Musculoskeletal: No Fluid Collection, No Pain, Normal Range of Motion Extremities: Present: Other (Bilateral amputee.). Absent: edema - Labs and Meds CBC 07/22/16 Range/Units 04:41 WBC 4.8 (4.5-11.0) K/mm3 RBC 2.83 L (3.65-5.03) M/mm3 Hgb 9.1 L (10.1-14.3) gm/dl Hct 27.8 L (30.3-42.9) % Plt Count 161 (140-440) K/mm3 Lymph # 1.3 (1.2-5.4) K/mm3 [place] # 0.5 (0.0-0.8) K/mm3 Eos # 0.3 (0.0-0.4) K/mm3 Baso # 0.0 (0.0-0.1) K/mm3 Comprehensive Metabolic Panel 07/22/16 Range/Units 04:41 Sodium 138 D (137-145) mmol/L Potassium 4.4 D (3.6-5.0) mmol/L Chloride 95.1 L (98-107) mmol/L Carbon Dioxide 28 (22-30) mmol/L BUN 36 H (7-17) mg/dL Creatinine 4.8 H (0.7-1.2) mg/dL Glucose 73 (65-100) mg/dL Calcium 8.9 (8.4-10.2) mg/dL - Imaging and Cardiology EKG: image reviewed - Telemetry EKG Rhythm: Sinus Rhythm - EKG Sinus rhythms and dysrhythmias: sinus rhythm
[2016-07-22 14:41] VITALS: BP 158/93
[2016-07-22] MEDS: NOVOLOG SUB-Q SCH (14:43)
[2016-07-22] MEDS: LOVENOX SUB-Q SCH (14:59)
--- NOTE | 2016-07-22 14:59 | Discharge Summary ---
Providers - Providers Date of Admission: 07/21/16 00:58 Date of discharge: 07/22/16 Attending physician: IMTIAZ LUU MD 07/21/16 06:10 Consult to Physician [CONS] Routine Consulting Provider: GWEN LU Reason For Exam: cp Notified:: laboratory secretary pl call Primary care physician: HAYDEN KONG Hospitalization Reason for admission: Volume overload, Chest pain Condition: Stable Hospital course: 56-year-old lady with history of hypertension, diabetes, coronary artery disease , end-stage renal disease on dialysis ,peptic ulcer disease comes into the emergency because of shortness of breath. She states she feels like she is drowning when she lies down, admits to PND, orthopnea. She stated she had an extra 7 kg weight and was told by dialysis nurse to go to the emergency room if she develops shortness of breath. Also complaining of chest pain in the epigastric area which she described as sharp pain, intermittent in nature lasting for 15 minutes, intensity 5/10, no radiation and she can't identify exacerbating or relieving factors. She had a stress test a few months ago. Patient was admitted to the floor and treated for volume overload with dialysis. Cardiology and nephrology consult appreciated. Patient is breathing well hemodynamically stable. patient was advised to take her home medications , adhere to he dialysis schedule and discharged home. Disposition: DISCHARGED TO HOME OR SELFCARE Time spent for discharge: 31 minutes - Discharge Diagnoses (1) Anemia in end-stage renal disease Status: Acute (2) Chest pain, rule out acute myocardial infarction Status: Acute (3) Diabetes Status: Chronic Qualifiers: Diabetes mellitus type: D Diabetes mellitus complication status: D Diabetes mellitus complication detail: D Diabetic retinopathy severity: D Proliferative retinopathy type: P Diabetes mellitus macular edema: D Diabetes mellitus snf insulin use: D Laterality: L Chronic kidney disease stage: C (4) ESRD (end stage renal disease) on dialysis Status: Chronic (5) Shortness of breath Status: Acute Core Measure Documentation - Palliative Care Palliative Care/ Comfort Measures: Not Applicable - Core Measures Any of the following diagnoses?: none Exam - Physical Exam Narrative exam: Not in cardiopulmonary distress. The patient appeared well nourished and normally developed. Vital signs as documented. Head exam is unremarkable. No scleral icterus . Neck is without jugular venous distension, thyromegaly, or carotid bruits. Lungs are clear to auscultation. Cardiac exam reveals regular rate and Rhythm. First and second heart sounds normal. No murmurs, rubs or gallops. Abdominal exam reveals normal bowel sounds, no masses, no organomegaly and no aortic enlargement. Extremities are Bilateral BKA. [employer]: Alert and oriented 3. No focal weakness. - Constitutional Vitals: Temp Pulse Resp BP Pulse Ox 98.7 F 75 18 158/93 91 07/22/16 13:52 07/22/16 13:52 07/22/16 13:52 07/22/16 13:52 07/22/16 09:34 Plan Activity: no restrictions (Bilateral BKA with prostetic legs.) Weight Bearing Status: Full Weight Bearing (Bilateral BKA with prostetic legs.) Diet: low cholesterol, low salt, diabetic, renal Follow up with: HAYDEN KONG MD [Primary Care Provider] - 3-5 Days Prescriptions: Cinacalcet HCl [Sensipar] 90 mg PO DAILY #30 tablet
[2016-07-22] MEDS ORDERED: ZESTRIL PO SCH (15:00)
[2016-07-22] MEDS: NORVASC PO SCH (15:02)
[2016-07-22] MEDS: PLAVIX PO SCH (15:03)
[2016-07-22] MEDS ORDERED: LOPRESSOR PO SCH (22:00)
[2016-07-22] MEDS ORDERED: APRESOLINE PO SCH (22:00)
== END 2016-07-22 18:15 | disposition home or self-care (01) | DRG 280 ==
LOC: ED 19:39 → 4A 07-21 00:58
PROVIDERS: ADMIT Internal Medicine; ATTEND Internal Medicine
PROC: 5A1D60Z (ICD-10-PCS; principal; 2016-07-21)
DX: I21.4 Non-ST elevation (NSTEMI) myocardial infarction (principal); N18.6 End stage renal disease; I12.0 Hypertensive chronic kidney disease with stage 5 chronic kidney disease or end stage renal disease; E87.1 Hypo-osmolality and hyponatremia; E87.70 Fluid overload, unspecified; I25.10 Atherosclerotic heart disease of native coronary artery without angina pectoris; E11.22 Type 2 diabetes mellitus with diabetic chronic kidney disease; D63.1 Anemia in chronic kidney disease; E11.51 Type 2 diabetes mellitus with diabetic peripheral angiopathy without gangrene; E87.5 Hyperkalemia; E11.65 Type 2 diabetes mellitus with hyperglycemia; K21.9 Gastro-esophageal reflux disease without esophagitis; Z95.5 Presence of coronary angioplasty implant and graft; Z87.11 Personal history of peptic ulcer disease; Z91.041 Radiographic dye allergy status; Z91.013 Allergy to seafood; Z95.1 Presence of aortocoronary bypass graft; Z89.512 Acquired absence of left leg below knee; Z89.511 Acquired absence of right leg below knee; Z82.49 Family history of ischemic heart disease and other diseases of the circulatory system
CPT/HCPCS: 36415; 71020; 80048; 80061; 82550; 82553; 82962; 83970; 84100; 84484; 85025; 85027; 93005; 93010; 96374; J0885; J1650; J1815; J2405; J7030

== ENCOUNTER 2016-11-16 02:44 | Emergency (ER) | payer MEDICARE ==
[2016-11-16] MEDS ORDERED: ZOFRAN IV ONE (03:04)
[2016-11-16 03:47] LABS: Hematocrit 36.2 % (30.3-42.9); Hemoglobin 11.7 gm/dl (10.1-14.3); Mean Corpuscular HGB Conc 32 % (30-34); Mean Corpuscular Hemoglobin 32 pg (28-32); Mean Corpuscular Volume 98 fl (79-97); Platelet Count 212 K/mm3 (140-440); Red Blood Count 3.69 M/mm3 (3.65-5.03); Red Cell Distribution Width 16.4 % (13.2-15.2); White Blood Count 7.9 K/mm3 (4.5-11.0)
[2016-11-16 03:59] LABS: BUN/Creatinine Ratio 8.51; Calcium 8.5 mg/dL (8.4-10.2); Chloride 80.5 mmol/L (98-107); Potassium 4.6 mmol/L (3.6-5.0)
[2016-11-16 05:07] LABS: Anisocytosis Few; Basophils % (Manual) 0 % (0.0-1.8); Blastocytes % (Manual) 0 %; Elliptocytes Few; Eosinophils % (Manual) 0 % (0.0-4.3); Hypochromasia 1+; Ovalocytes Few
[2016-11-16 05:08] LABS: Diff Status Complete
--- NOTE | 2016-11-16 06:17 | Emergency Department Report ---
HPI - General Chief Complaint: Dyspnea/Respdistress Time Seen by Provider: 11/16/16 06:05 - HPI HPI: Room 1 The patient is a 56-year-old female presenting with a chief complaint of nausea vomiting diarrhea. Patient states her symptoms began yesterday with nausea vomiting and diarrhea. Patient states she developed bilateral side soreness from frequent vomiting. Patient denies chest pain/pressure/tightness/ discomfort. Patient denies having shortness of breath. The patient states her 12-year-old grandson develop nausea vomiting and diarrhea 3 days ago requiring him to stay home from school. Patient was administered antiemetic prior to my evaluation and currently states she just feels tired. Patient currently no longer has nausea Location: Gastrointestinal system Duration: Constant since yesterday Quality: Nausea Severity: Moderate Modifying factors: [see above] Context: [see above] Mode of transportation: Unknown ED Past Medical Hx - Past Medical History Hx Hypertension: Yes (34YRS) Hx Heart Attack/AMI: Yes (2008) Hx Diabetes: Yes (31YRS) Hx GERD: Yes Hx Renal Disease: Yes (dialysis MWF) Hx Seizures: Yes ( X 3 ON DAY OF [place]) Hx Asthma: Yes Additional medical history: CAD - Surgical History Hx Coronary Stent: Yes (stent 2010,open heart surgery 2012) Hx Open Heart Surgery: Yes Additional Surgical History: CABG recently 11-23-2012, bilateral BKA. FISTULA LEFT UPPER ARM,: Biopsy, PD catheter placement and removal - Family History Family history: no significant - Social History Smoking Status: Never Smoker Substance Use Type: None (denies illicit drug use) - Medications Home Medications: Home Medications Medication Instructions Recorded Confirmed Last Taken Type Acetaminophen [Acetaminophen 325 mg PO Q6HR PRN 12/08/12 07/22/16 1 Day Ago History SUPPOS] Cyanocobalamin/Folic Acid [Vitamin 1 each PO DAILY 12/08/12 07/22/16 1 Day Ago History G92-[id number] Acid Tablet] Ezetimibe [Zetia] 10 mg PO QDAY 12/08/12 07/22/16 1 Day Ago History Lisinopril [Zestril TAB] 40 mg PO QDAY 12/08/12 07/22/16 1 Day Ago History Metoprolol [Lopressor TAB] 25 mg PO BID #60 tablet 10/18/14 07/22/16 1 Day Ago Rx amLODIPine [Norvasc] 10 mg PO DAILY #30 tablet 10/18/14 07/22/16 1 Day Ago Rx Atorvastatin [Lipitor] 40 mg PO QHS 04/09/15 07/22/16 1 Day Ago History Sitagliptin Phosphate [Januvia] 100 mg PO DAILY 04/09/15 07/22/16 2 Days Ago History hydrALAZINE [Apresoline TAB] 25 mg PO BID 04/09/15 07/22/16 1 Day Ago History Clopidogrel [Plavix] 75 mg PO QDAY #30 tablet 04/11/15 07/22/16 1 Day Ago Rx Aspirin EC [Aspirin Enteric Coated 81 mg PO QDAY #30 tablet.dr 04/22/15 1 Day Ago Rx TAB] Biotin 5,000 mcg PO BID 09/25/15 07/22/16 1 Day Ago History Calcium Acetate [Phoslo] 667 mg PO TID 09/25/15 07/22/16 1 Day Ago History Ergocalciferol [Vitamin D2] 1 cap PO QWEEK 09/25/15 07/22/16 1 Day Ago History Ferric Citrate (Nf) [Auryxia (Nf)] 210 mg PO TID 09/25/15 07/22/16 1 Day Ago History Nitroglycerin [Nitrostat] 0.4 mg SL Q5M PRN 09/25/15 07/22/16 1 Month Ago History Pantoprazole [Protonix TAB] 40 mg PO BID 09/25/15 07/22/16 1 Day Ago History Sucralfate [Carafate] 1 gm PO Q6HR PRN 09/25/15 07/22/16 1 Day Ago History Vit B Cplx #11/FA/C/Biot/Zn Ox 800 mg PO DAILY 09/25/15 07/22/16 1 Day Ago History [Dialyvite with Zinc Tablet] Docusate Sodium [Colace CAP] 100 mg PO BID PRN #60 capsule 03/02/16 07/22/16 1 Day Ago Rx Cinacalcet HCl [Sensipar] 90 mg PO DAILY #30 tablet 07/22/16 Unknown Rx Diphenoxylate/Atropine [Lomotil] 2 tab PO QID PRN #20 tablet 11/16/16 Unknown Rx Promethazine [Phenergan TAB] 25 mg PO Q6HR PRN #20 tab 11/16/16 Unknown Rx Promethazine [Phenergan] 25 mg VT Q6HR PRN #5 supp.rect 11/16/16 Unknown Rx ED Review of Systems ROS: Stated complaint: DIFFICULTY IN BREATHING, NAUSEA AND VOMITING Other details as noted in HPI Constitutional: other ("tired"). denies: chills, fever Eyes: denies: eye pain, eye discharge, vision change ENT: denies: ear pain, throat pain Respiratory: denies: cough, shortness of breath, wheezing Cardiovascular: denies: chest pain, palpitations Endocrine: no symptoms reported Gastrointestinal: nausea, vomiting, diarrhea Genitourinary: denies: urgency, dysuria, discharge Musculoskeletal: denies: back pain, joint swelling, arthralgia Skin: denies: rash, lesions Neurological: denies: headache, weakness, paresthesias Psychiatric: denies: anxiety, depression Hematological/Lymphatic: denies: easy bleeding, easy bruising Physical Exam - Physical Exam Vital Signs: Vital Signs 11/16/16 11/16/16 11/16/16 03:30 05:47 05:50 Temperature 98 F Pulse Rate 91 H 84 Respiratory 18 17 18 Rate Blood Pressure 190/78 Blood Pressure 190/78 180/64 [Left] O2 Sat by Pulse 100 100 100 Oximetry 11/16/16 06:08 Temperature Pulse Rate 85 Respiratory 18 Rate Blood Pressure Blood Pressure 167/63 [Left] O2 Sat by Pulse Oximetry Physical Exam: GENERAL: The patient is well-developed well-nourished female lying on stretcher resting not appearing to be in acute distress. [] HEENT: Normocephalic. Atraumatic. Extraocular motions are intact. NECK: Supple. Trachea midline CHEST/LUNGS: Clear to auscultation. There is no respiratory distress noted. HEART/CARDIOVASCULAR: Regular. There is no tachycardia. There is no gallop rub or murmur. ABDOMEN: Abdomen is soft, with mild discomfort to palpation in the right lower quadrant. Patient has normal bowel sounds. There is no abdominal distention. SKIN: There is no rash. There is no edema. There is no diaphoresis. NEURO: The patient is awake, alert, and oriented. The patient is cooperative. The patient has normal speech MUSCULOSKELETAL: Bilateral BKA's. There is no evidence of acute injury. ED Course Vital Signs 11/16/16 11/16/16 11/16/16 03:30 05:47 05:50 Temperature 98 F Pulse Rate 91 H 84 Respiratory 18 17 18 Rate Blood Pressure 190/78 Blood Pressure 190/78 180/64 [Left] O2 Sat by Pulse 100 100 100 Oximetry 11/16/16 06:08 Temperature Pulse Rate 85 Respiratory 18 Rate Blood Pressure Blood Pressure 167/63 [Left] O2 Sat by Pulse Oximetry - Reevaluation(s) Reevaluation #1: 11/16/16 09:36 Patient tolerating po ED Medical Decision Making - Lab Data Result diagrams: 11/16/16 03:18 11/16/16 03:18 Laboratory Tests 11/16/16 11/16/16 11/16/16 03:18 03:18 06:04 WBC 7.9 RBC 3.69 Hgb 11.7 Hct 36.2 MCV 98 H MCH 32 MCHC 32 RDW 16.4 H Plt Count 212 Add Manual Diff Complete Total Counted 100 Seg Neutrophils % Dynamometer Tester Engine Seg Neuts % (Manual) 80.0 H Band Neutrophils % 11.0 Lymphocytes % (Manual) 6.0 L Reactive Lymphs % (Man) 0 Monocytes % (Manual) 3.0 Eosinophils % (Manual) 0 Basophils % (Manual) 0 Metamyelocytes % 0 Myelocytes % 0 Promyelocytes % 0 Blast Cells % 0 Nucleated RBC % Not Reportable Seg Neutrophils # Man 6.3 Band Neutrophils # 0.9 Lymphocytes # (Manual) 0.5 L Abs React Lymphs (Man) 0.0 Monocytes # (Manual) 0.2 Eosinophils # (Manual) 0.0 Basophils # (Manual) 0.0 Metamyelocytes # 0.0 Myelocytes # 0.0 Promyelocytes # 0.0 Blast Cells # 0.0 WBC Morphology Not Reportable Hypersegmented Neuts Not Reportable Hyposegmented Neuts Not Reportable Hypogranular Neuts Not Reportable Smudge Cells Not Reportable Toxic Granulation Not Reportable Toxic Vacuolation Not Reportable Dohle Bodies Not Reportable Pelger-Huet Anomaly Not Reportable Atif Rods Not Reportable Platelet Estimate Appears normal Clumped Platelets Not Reportable Plt Clumps, EDTA Not Reportable Large Platelets Not Reportable Giant Platelets Not Reportable Platelet Satelliting Not Reportable Plt Morphology Comment Not Reportable RBC Morphology Not Reportable Dimorphic RBCs Not Reportable Polychromasia Not Reportable Hypochromasia 1+ Poikilocytosis Not Reportable Anisocytosis Few Microcytosis Not Reportable Macrocytosis Not Reportable Spherocytes Not Reportable Pappenheimer Bodies Not Reportable Sickle Cells Not Reportable Target Cells Not Reportable Tear Drop Cells Not Reportable Ovalocytes Few Helmet Cells Not Reportable Leal-Guys Bodies Not Reportable [place] Rings Not Reportable [place] Cells Not Reportable Bite Cells Not Reportable Crenated Cell Not Reportable Elliptocytes Few Acanthocytes (Spur) Not Reportable Rouleaux Not Reportable Hemoglobin C Crystals Not Reportable Schistocytes Not Reportable Malaria parasites Not Reportable Michael Bodies Not Reportable Hem Pathologist Commnt No VBG pH Sodium 133 L Potassium 4.6 Chloride 80.5 L Carbon Dioxide 14 L Anion Gap 43 BUN 46 H Creatinine 5.4 H Estimated GFR 10 BUN/Creatinine Ratio 8.51 Glucose 507 H* POC Glucose 383 H Calcium 8.5 Troponin T 0.087 H Triglycerides 253 H Cholesterol 162 LDL Cholesterol Direct 69 HDL Cholesterol 43 Cholesterol/HDL Ratio 3.76 11/16/16 11/16/16 11/16/16 06:35 07:39 08:28 WBC RBC Hgb Hct MCV MCH MCHC RDW Plt Count Add Manual Diff Total Counted Seg Neutrophils % Seg Neuts % (Manual) Band Neutrophils % Lymphocytes % (Manual) Reactive Lymphs % (Man) Monocytes % (Manual) Eosinophils % (Manual) Basophils % (Manual) Metamyelocytes % Myelocytes % Promyelocytes % Blast Cells % Nucleated RBC % Seg Neutrophils # Man Band Neutrophils # Lymphocytes # (Manual) Abs React Lymphs (Man) Monocytes # (Manual) Eosinophils # (Manual) Basophils # (Manual) Metamyelocytes # Myelocytes # Promyelocytes # Blast Cells # WBC Morphology Hypersegmented Neuts Hyposegmented Neuts Hypogranular Neuts Smudge Cells Toxic Granulation Toxic Vacuolation Dohle Bodies Pelger-Huet Anomaly Atif Rods Platelet Estimate Clumped Platelets Plt Clumps, EDTA Large Platelets Giant Platelets Platelet Satelliting Plt Morphology Comment RBC Morphology Dimorphic RBCs Polychromasia Hypochromasia Poikilocytosis Anisocytosis Microcytosis Macrocytosis Spherocytes Pappenheimer Bodies Sickle Cells Target Cells Tear Drop Cells Ovalocytes Helmet Cells Leal-Guys Bodies [place] Rings Rosalina Cells Bite Cells Crenated Cell Elliptocytes Acanthocytes (Spur) Rouleaux Hemoglobin C Crystals Schistocytes Malaria parasites Michael Bodies Hem Pathologist Commnt VBG pH 7.433 H Sodium Potassium Chloride Carbon Dioxide Anion Gap BUN Creatinine Estimated GFR BUN/Creatinine Ratio Glucose POC Glucose 440 H 355 H Calcium Troponin T Triglycerides Cholesterol LDL Cholesterol Direct HDL Cholesterol Cholesterol/HDL Ratio - EKG Data -: EKG Interpreted by Me EKG shows normal: sinus rhythm Rate: normal - EKG Data When compared to previous EKG there are: no significant change Interpretation: unchanged when compared t (07/20/2016), nonspecific ST-T wave igor - Radiology Data Radiology results: report reviewed (CT abdomen and pelvis), image reviewed ( chest x-ray, CT abdomen and pelvis) interpreted by me: Chest x-ray-no pneumothorax. Cardiomegaly CT abdomen and pelvis (read by radiologist)-fluid throughout much of the colon with suggestive transverse colonic wall thickening may be secondary to infection or ischemia. No pericolonic stranding, edema, focal fluid collection or pneumoperitoneum. - Differential Diagnosis gastroenteritis, appendicitis, GERD, gastritis Critical care attestation.: If time is entered above; I have spent that time in minutes in the direct care of this critically ill patient, excluding procedure time. ED Disposition Clinical Impression: Nausea vomiting and diarrhea, Hyperglycemia Disposition: DC-01 TO HOME OR SELFCARE Is pt being admited?: No Does the pt Need Aspirin: No Condition: Stable Instructions: Acute Nausea and Vomiting (ED) Additional Instructions: Return to the emergency department immediately should you develop worsening symptoms, fever, inability to tolerate food or liquid or any other concerns. Prescriptions: Diphenoxylate/Atropine [Lomotil] 2 tab PO QID PRN #20 tablet PRN Reason: Diarrhea Promethazine [Phenergan TAB] 25 mg PO Q6HR PRN #20 tab PRN Reason: Nausea Promethazine [Phenergan] 25 mg VT Q6HR PRN #5 supp.rect PRN Reason: Vomiting Referrals: PRIMARY CARE, [Primary Care Provider] - 3-5 Days DAVY FRIEND MD [Staff Physician] - 3-5 Days (Dr. Friend is a naval inspector. Please follow up with him for further evaluation) Time of Disposition: 09:38
[2016-11-16] MEDS ORDERED: REGLAN IV ONE (06:31)
--- NOTE | 2016-11-16 07:43 | Cat Scan Report ---
FINAL REPORT EXAM: CT ABDOMEN PELVIS WO CON HISTORY: right lower quadrant abdominal pain nausea vomitin TECHNIQUE: CT images obtained through the Abdomen and Pelvis without contrast. Transaxial,coronal and sagittal reformats are provided. PRIORS: 03/02/2016 FINDINGS: Cardiomegaly and coronary artery disease with overlying sternotomy wires. Small right and trace left pleural effusion with associated compressive atelectasis. The aorta is normal in course and caliber. Extensive calcification involves all major abdominal vasculature. Multicystic kidneys are unchanged from prior. No hydroureteronephrosis. Nonobstructive 1 millimeter stones. Extensive renal vascular calcification. The ureters are normal in course and caliber. No stones are seen within the urinary bladder. Anteverted uterus with dystrophic in fibroid related calcification. No significant free fluid in the pelvis. Multiple pelvic phleboliths. Thickening and nodularity of the left adrenal gland is unchanged. The liver, gallbladder, pancreas, spleen, and right adrenal gland demonstrate an unremarkable noncontrast appearance. Hollow enteric organs are normal in course and caliber. Appendix is normal. Mild transverse colonic wall thickening is suggested. There is fluid throughout much of the colon. No pericolonic stranding or edema. No intra-abdominal free air/fluid or lymphadenopathy. Superficial soft tissues are unremarkable. No acute or aggressive appearing skeletal findings. Diffuse endplate sclerosis throughout the spine is likely secondary to renal osteodystrophy. IMPRESSION: Fluid throughout much of the colon with suggested transverse colonic wall thickening may be secondary to infection or ischemia. No pericolonic stranding, edema, focal fluid collection or pneumoperitoneum.
--- NOTE | 2016-11-16 09:26 | XRay Report ---
Single view chest: Compared to 07/20/16. History: Shortness of breath. Findings: Marked cardiomegaly. Trachea is midline. Pulmonary venous congestion bilaterally, more prominent on right side. No consolidation or pleural effusion. Impression: Probable CHF.
[2016-11-16 10:12] VITALS: BP 143/62
== END 2016-11-16 10:11 | disposition home or self-care (01) ==
LOC: ED 02:44
DX: R11.2 Nausea with vomiting, unspecified (principal); R19.7 Diarrhea, unspecified; E11.65 Type 2 diabetes mellitus with hyperglycemia; I10 Essential (primary) hypertension; K21.9 Gastro-esophageal reflux disease without esophagitis; R56.9 Unspecified convulsions; J45.909 Unspecified asthma, uncomplicated; I25.2 Old myocardial infarction; I25.10 Atherosclerotic heart disease of native coronary artery without angina pectoris; Z79.82 Long term (current) use of aspirin; Z91.013 Allergy to seafood; Z88.8 Allergy status to other drugs, medicaments and biological substances
CPT/HCPCS: 36415; 71010; 74176; 80048; 80061; 82805; 82962; 84484; 85007; 85025; 93005; 93010; 96374; 96375; 96376; 99285; J2405; J2765; J1815

== ENCOUNTER 2016-12-13 01:16 | Inpatient (IN) | payer MEDICARE ==
[2016-12-13] MEDS: ZOFRAN IM ONE ×2 (02:35→02:40)
[2016-12-13] MEDS: ZOFRAN IV ONE ×2 (02:40→02:46)
[2016-12-13 03:11] LABS: Basophils % (Auto) 0.6 % (0.0-1.8); Eosinophils % (Auto) 0.1 % (0.0-4.3); Hematocrit 29.6 % (30.3-42.9); Hemoglobin 9.6 gm/dl (10.1-14.3); Mean Corpuscular HGB Conc 33 % (30-34); Mean Corpuscular Hemoglobin 32 pg (28-32); Mean Corpuscular Volume 99 fl (79-97); Platelet Count 158 K/mm3 (140-440); Red Cell Distribution Width 17.1 % (13.2-15.2); White Blood Count 5.6 K/mm3 (4.5-11.0)
[2016-12-13 03:20] LABS: Calcium 6.9 mg/dL (8.4-10.2); Chloride 88.7 mmol/L (98-107); Potassium 4.9 mmol/L (3.6-5.0)
--- NOTE | 2016-12-13 04:17 | Emergency Department Report ---
ED N/V/D HPI - General Chief complaint: Nausea/Vomiting/Diarrhea Stated complaint: NAUSEA/VOMITING Time Seen by Provider: 12/13/16 04:14 Source: patient, EMS Mode of arrival: Stretcher Limitations: No Limitations - History of Present Illness Initial comments: 56 YO FEMALE WHO BEGAN HAVING NAUSEA,VOMITING, DIARRHEA YESTERDAY. PT REPORTS INTRACTABLE VOMITING AND DIARRHEA. SHE DENIES BLOOD IN STOOL. SHE IS A RENAL DIALYSIS PT AND IS TO BE DIALYZED TODAY. MD complaint: nausea, vomiting, diarrhea -: Gradual Description of Vomiting: food contents Description of Diarrhea: water Associated Abdominal Pain: Yes Location: diffuse Radiation: none Severity: moderate Improves with: none Worsens with: none - Related Data Home Medications Medication Instructions Recorded Confirmed Last Taken Acetaminophen [Acetaminophen 325 mg PO Q6HR PRN 12/08/12 12/13/16 1 Day Ago SUPPOS] Cyanocobalamin/Folic Acid [Vitamin 1 each PO DAILY 12/08/12 12/13/16 1 Day Ago K79-[id number] Acid Tablet] Ezetimibe [Zetia] 10 mg PO QDAY 12/08/12 12/13/16 1 Day Ago Lisinopril [Zestril TAB] 40 mg PO QDAY 12/08/12 12/13/16 1 Day Ago Atorvastatin [Lipitor] 40 mg PO QHS 04/09/15 12/13/16 1 Day Ago Sitagliptin Phosphate [Januvia] 100 mg PO DAILY 04/09/15 12/13/16 2 Days Ago hydrALAZINE [Apresoline TAB] 25 mg PO BID 04/09/15 12/13/16 1 Day Ago B Complex 11/Folic/C/Biot/Zinc 800 mg PO DAILY 09/25/15 12/13/16 1 Day Ago [Dialyvite with Zinc Tablet] Biotin 5,000 mcg PO BID 09/25/15 12/13/16 1 Day Ago Calcium Acetate [Phoslo] 667 mg PO TID 09/25/15 12/13/16 1 Day Ago Ergocalciferol [Vitamin D2] 1 cap PO QWEEK 09/25/15 12/13/16 1 Day Ago Ferric Citrate (Nf) [Auryxia (Nf)] 210 mg PO TID 09/25/15 12/13/16 1 Day Ago Nitroglycerin [Nitrostat] 0.4 mg SL Q5M PRN 09/25/15 12/13/16 1 Month Ago Pantoprazole [Protonix TAB] 40 mg PO BID 09/25/15 12/13/16 1 Day Ago Sucralfate [Carafate] 1 gm PO Q6HR PRN 09/25/15 12/13/16 1 Day Ago Previous Rx's Medication Instructions Recorded Last Taken Type Metoprolol [Lopressor TAB] 25 mg PO BID #60 tablet 10/18/14 1 Day Ago Rx amLODIPine [Norvasc] 10 mg PO DAILY #30 tablet 10/18/14 1 Day Ago Rx Aspirin EC [Aspirin Enteric Coated 81 mg PO QDAY #30 tablet. 04/22/15 1 Day Ago Rx TAB] Docusate Sodium [Colace CAP] 100 mg PO BID PRN #60 capsule 03/02/16 1 Day Ago Rx Cinacalcet HCl [Sensipar] 90 mg PO DAILY #30 tablet 07/22/16 Unknown Rx Diphenoxylate/Atropine [Lomotil] 2 tab PO QID PRN #20 tablet 11/16/16 Unknown Rx Allergies Allergy/AdvReac Type Severity Reaction Status Date / Time iodine Allergy Shortness Verified 04/17/15 22:31 of Breath shellfish derived Allergy Shortness Verified 09/20/13 16:36 of Breath ED Review of Systems ROS: Stated complaint: NAUSEA/VOMITING Other details as noted in HPI Constitutional: denies: chills, fever Eyes: denies: eye pain, eye discharge, vision change ENT: denies: ear pain, throat pain Respiratory: denies: cough, shortness of breath, wheezing Cardiovascular: denies: chest pain, palpitations Endocrine: no symptoms reported Gastrointestinal: abdominal pain, vomiting. denies: diarrhea Genitourinary: denies: urgency, dysuria, discharge Musculoskeletal: denies: back pain, joint swelling, arthralgia Skin: denies: rash, lesions Neurological: denies: headache, weakness, paresthesias Psychiatric: denies: anxiety, depression Hematological/Lymphatic: denies: easy bleeding, easy bruising ED Past Medical Hx - Past Medical History Previous Medical History?: Yes Hx Hypertension: Yes (34YRS) Hx Heart Attack/AMI: Yes (2008) Hx Diabetes: Yes (31YRS) Hx GERD: Yes Hx Renal Disease: Yes (dialysis MWF) Hx Seizures: Yes ( X 3 ON DAY OF [place]) Hx Asthma: Yes Additional medical history: CAD - Surgical History Past Surgical History?: Yes Hx Coronary Stent: Yes (stent 2010,open heart surgery 2012) Hx Open Heart Surgery: Yes Additional Surgical History: CABG recently 11-23-2012, bilateral BKA. FISTULA LEFT UPPER ARM,: Biopsy, PD catheter placement and removal - Social History Smoking Status: Never Smoker Substance Use Type: None - Medications Home Medications: Home Medications Medication Instructions Recorded Confirmed Last Taken Type Acetaminophen [Acetaminophen 325 mg PO Q6HR PRN 12/08/12 12/13/16 1 Day Ago History SUPPOS] Cyanocobalamin/Folic Acid [Vitamin 1 each PO DAILY 12/08/12 12/13/16 1 Day Ago History [id number]-[id number] Acid Tablet] Ezetimibe [Zetia] 10 mg PO QDAY 12/08/12 12/13/16 1 Day Ago History Lisinopril [Zestril TAB] 40 mg PO QDAY 12/08/12 12/13/16 1 Day Ago History Metoprolol [Lopressor TAB] 25 mg PO BID #60 tablet 10/18/14 12/13/16 1 Day Ago Rx amLODIPine [Norvasc] 10 mg PO DAILY #30 tablet 10/18/14 12/13/16 1 Day Ago Rx Atorvastatin [Lipitor] 40 mg PO QHS 04/09/15 12/13/16 1 Day Ago History Sitagliptin Phosphate [Januvia] 100 mg PO DAILY 04/09/15 12/13/16 2 Days Ago History hydrALAZINE [Apresoline TAB] 25 mg PO BID 04/09/15 12/13/16 1 Day Ago History Aspirin EC [Aspirin Enteric Coated 81 mg PO QDAY #30 tablet. 04/22/15 1 Day Ago Rx TAB] B Complex 11/Folic/C/Biot/Zinc 800 mg PO DAILY 09/25/15 12/13/16 1 Day Ago History [Dialyvite with Zinc Tablet] Biotin 5,000 mcg PO BID 09/25/15 12/13/16 1 Day Ago History Calcium Acetate [Phoslo] 667 mg PO TID 09/25/15 12/13/16 1 Day Ago History Ergocalciferol [Vitamin D2] 1 cap PO QWEEK 09/25/15 12/13/16 1 Day Ago History Ferric Citrate (Nf) [Auryxia (Nf)] 210 mg PO TID 09/25/15 12/13/16 1 Day Ago History Nitroglycerin [Nitrostat] 0.4 mg SL Q5M PRN 09/25/15 12/13/16 1 Month Ago History Pantoprazole [Protonix TAB] 40 mg PO BID 09/25/15 12/13/16 1 Day Ago History Sucralfate [Carafate] 1 gm PO Q6HR PRN 09/25/15 12/13/16 1 Day Ago History Docusate Sodium [Colace CAP] 100 mg PO BID PRN #60 capsule 03/02/16 12/13/16 1 Day Ago Rx Cinacalcet HCl [Sensipar] 90 mg PO DAILY #30 tablet 07/22/16 12/13/16 Unknown Rx Diphenoxylate/Atropine [Lomotil] 2 tab PO QID PRN #20 tablet 11/16/16 12/13/16 Unknown Rx ED Physical Exam - General Limitations: No Limitations General appearance: alert, in distress (NAUSEATED) - Head Head exam: Present: atraumatic, normocephalic - Eye Eye exam: Present: EOMI. Absent: scleral icterus, conjunctival injection - ENT ENT exam: Present: normal exam - Neck Neck exam: Present: normal inspection, full ROM - Respiratory Respiratory exam: Present: normal lung sounds bilaterally - Cardiovascular Cardiovascular Exam: Present: regular rate, normal rhythm, normal heart sounds - GI/Abdominal GI/Abdominal exam: Present: distended, tenderness (INFRAUMBILICAL) - Rectal Rectal exam: Present: deferred - Extremities Exam Extremities exam: Present: other (BILATERL BKA) - Back Exam Back exam: Present: normal inspection, full ROM - Neurological Exam Neurological exam: Present: alert, oriented X3 - Psychiatric Psychiatric exam: Present: normal affect, normal mood - Skin Skin exam: Present: warm, dry, intact ED Course Vital Signs 12/13/16 12/13/16 12/13/16 01:48 02:30 04:52 Temperature 98.6 F Pulse Rate 77 Respiratory 20 18 18 Rate Blood Pressure 145/67 O2 Sat by Pulse 97 98 Oximetry ED Medical Decision Making - Lab Data Result diagrams: 12/13/16 02:49 12/13/16 02:49 Critical care attestation.: If time is entered above; I have spent that time in minutes in the direct care of this critically ill patient, excluding procedure time. ED Disposition Clinical Impression: Renal failure as complication of care Hyperglycemia due to type 2 diabetes mellitus Qualifiers: Diabetes mellitus correction insulin use: with correction use Qualified Code(s): E11.65 - Type 2 diabetes mellitus with hyperglycemia Nausea & vomiting Qualifiers: Vomiting type: unspecified Vomiting Intractability: intractable Qualified Code( s): R11.2 - Nausea with vomiting, unspecified Diarrhea Qualifiers: Diarrhea type: unspecified type Qualified Code(s): R19.7 - Diarrhea, unspecified Disposition: 09 OP ADMIT IP TO THIS HOSP Is pt being admited?: Yes Does the pt Need Aspirin: No Condition: Stable Instructions: Diabetes Mellitus Type 2 in Adults (ED) Referrals: PRIMARY CARE, [Primary Care Provider] - 3-5 Days Time of Disposition: 05:43 (CASE DISCUSSED WITH DR LUU WHO WILL ADMIT THE PT)
[2016-12-13] MEDS ORDERED: MORPHINE IV ONE (04:40)
[2016-12-13 04:47] LABS: Alanine Aminotransferase 97 units/L (7-56); Albumin 3.4 g/dL (3.9-5); Albumin/Globulin Ratio 1.3 %; Alkaline Phosphatase 281 units/L (35-129)
[2016-12-13] MEDS ORDERED: MORPHINE ONE (04:48)
[2016-12-13 04:56] LABS: Bilirubin,Direct < 0.2 mg/dL (0-0.2); Bilirubin,Indirect 0.2 mg/dL
[2016-12-13] MEDS ORDERED: D50W (25GM) Vial IV PRN (06:23)
[2016-12-13] MEDS ORDERED: DILAUDID IM PRN (06:25)
--- NOTE | 2016-12-13 06:30 | History and Physical Report ---
History of Present Illness Date of examination: 12/13/16 Chief complaint: Abdominal pain History of present illness: 56-year-old -Iranian female with past medical history significant for diabetes mellitus type 2, end-stage renal disease on hemodialysis, hypertension , CAD status post CABG, bilateral BKA presented to the emergency department complaining of abdominal pain that started yesterday. She says the pain is sharp, mostly on the lower abdomen 10 out of 10 in intensity with no radiation. The pain is also added was nausea, vomiting, diarrhea. She says the diarrhea is watery, massive, foul-smelling. The vomiting contains blood. Patient denied chest pain, difficulty of breathing, palpitation. Patient has been on insulin. REVIEW OF SYSTEMS: GENERAL: no weight change, no fatigue, no fever HEAD: no head ache EYES: no blurry vision, no acute visual loss EARS: no hearing loss, no discharge, no earache NOSE: no stuffiness, no sneezing, no discharge MOUTH, THROAT AND NECK: no bleeding gums, no sore throat, no swollen neck CARDIAC: no palpitations, no dyspnea on exertion, no orthopnea, no PND, no edema , no chest pain RESPIRATORY: no shortness of breath, no wheeze, no cough, no sputum, no hemoptysis, no asthma GI: As stated in the HPI. URINARY: no change in frequency, no urgency, no polyuria, no hematuria, no incontinence MUSCULOSKELETAL: no muscle weakness, no pain, no joint stiffness NEUROLOGIC: no loss of sensation/numbness, no tingling, no tremors, no weakness/ paralysis HEMATOLOGIC: no anemia, no easy bruising SKIN: no rashes ENDOCRINE: no heat/cold intolerance, no polyuria, no polydipsia, no thyroid problems, no diabetes PSYCHIATRIC: no anxiety, no depression, no suicidal ideations Past History Past Medical History: CAD, diabetes, hypertension, renal failure Past Surgical History: No surgical history Social history: full code. denies: smoking, alcohol abuse, prescription drug abuse, IV drug use Family history: no significant family history Medications and Allergies Allergies Allergy/AdvReac Type Severity Reaction Status Date / Time iodine Allergy Shortness Verified 04/17/15 22:31 of Breath shellfish derived Allergy Shortness Verified 09/20/13 16:36 of Breath Home Medications Medication Instructions Recorded Confirmed Last Taken Type Acetaminophen [Acetaminophen 325 mg PO Q6HR PRN 12/08/12 12/13/16 1 Day Ago History SUPPOS] Cyanocobalamin/Folic Acid [Vitamin 1 each PO DAILY 12/08/12 12/13/16 1 Day Ago History [id number] Acid Tablet] Ezetimibe [Zetia] 10 mg PO QDAY 12/08/12 12/13/16 1 Day Ago History Lisinopril [Zestril TAB] 40 mg PO QDAY 12/08/12 12/13/16 1 Day Ago History Metoprolol [Lopressor TAB] 25 mg PO BID #60 tablet 10/18/14 12/13/16 1 Day Ago Rx amLODIPine [Norvasc] 10 mg PO DAILY #30 tablet 10/18/14 12/13/16 1 Day Ago Rx Atorvastatin [Lipitor] 40 mg PO QHS 04/09/15 12/13/16 1 Day Ago History Sitagliptin Phosphate [Januvia] 100 mg PO DAILY 04/09/15 12/13/16 2 Days Ago History hydrALAZINE [Apresoline TAB] 25 mg PO BID 04/09/15 12/13/16 1 Day Ago History Aspirin EC [Aspirin Enteric Coated 81 mg PO QDAY #30 tablet. 04/22/15 1 Day Ago Rx TAB] B Complex 11/Folic/C/Biot/Zinc 800 mg PO DAILY 09/25/15 12/13/16 1 Day Ago History [Dialyvite with Zinc Tablet] Biotin 5,000 mcg PO BID 09/25/15 12/13/16 1 Day Ago History Calcium Acetate [Phoslo] 667 mg PO TID 09/25/15 12/13/16 1 Day Ago History Ergocalciferol [Vitamin D2] 1 cap PO QWEEK 09/25/15 12/13/16 1 Day Ago History Ferric Citrate (Nf) [Auryxia (Nf)] 210 mg PO TID 09/25/15 12/13/16 1 Day Ago History Nitroglycerin [Nitrostat] 0.4 mg SL Q5M PRN 09/25/15 12/13/16 1 Month Ago History Pantoprazole [Protonix TAB] 40 mg PO BID 09/25/15 12/13/16 1 Day Ago History Sucralfate [Carafate] 1 gm PO Q6HR PRN 09/25/15 12/13/16 1 Day Ago History Docusate Sodium [Colace CAP] 100 mg PO BID PRN #60 capsule 03/02/16 12/13/16 1 Day Ago Rx Cinacalcet HCl [Sensipar] 90 mg PO DAILY #30 tablet 07/22/16 12/13/16 Unknown Rx Diphenoxylate/Atropine [Lomotil] 2 tab PO QID PRN #20 tablet 11/16/16 12/13/16 Unknown Rx Active Meds: Active Medications Dextrose (D50w (25gm) Vial) 0 gm IV PRN PRN PRN Reason: Hypoglycemia Heparin Sodium (Porcine) (Heparin) 5,000 unit SUB-Q Q8HR JACI Hydromorphone HCl (Dilaudid) 1 mg IM Q4H PRN PRN Reason: Pain Insulin Human Regular 100 (units/ Sodium Chloride) 100 mls @ 1 mls/hr IV TITR JACI; 1 UNITS/HR PRN Reason: Protocol Metronidazole (Flagyl 500 Mg/100 Ml) 500 mg in 100 mls @ 100 mls/hr IV Q8HR JACI Ondansetron HCl (Zofran) 4 mg IV Q8H PRN PRN Reason: N/V unrelieved by Reglan Exam - Physical Exam Narrative exam: Not in cardiopulmonary distress. The patient appeared well nourished and normally developed. Vital signs as documented. Head exam is unremarkable. No scleral icterus . Neck is without jugular venous distension, thyromegaly, or carotid bruits. Lungs are clear to auscultation. Cardiac exam reveals regular rate and Rhythm. First and second heart sounds normal. No murmurs, rubs or gallops. Abdominal exam reveals lower abdominal tenderness, no guarding or rigidity. Extremities bilateral BKA. [employer] OPERATIONS ASSISTANT: Alert and oriented 3. No focal weakness. - Constitutional Vitals: Temp Pulse Resp BP Pulse Ox 98.6 F 77 18 145/67 98 12/13/16 01:48 12/13/16 01:48 12/13/16 05:22 12/13/16 01:48 12/13/16 02:30 Results - Labs CBC & Chem 7: 12/13/16 02:49 12/13/16 02:49 Labs: Laboratory Last Values WBC 5.6 K/mm3 (4.5-11.0) 12/13/16 02:49 RBC 3.00 M/mm3 (3.65-5.03) L 12/13/16 02:49 Hgb 9.6 gm/dl (10.1-14.3) L 12/13/16 02:49 Hct 29.6 % (30.3-42.9) L 12/13/16 02:49 MCV 99 fl (79-97) H 12/13/16 02:49 MCH 32 pg (28-32) 12/13/16 02:49 MCHC 33 % (30-34) 12/13/16 02:49 RDW 17.1 % (13.2-15.2) H 12/13/16 02:49 Plt Count 158 K/mm3 (140-440) 12/13/16 02:49 Lymph % (Auto) 9.6 % (13.4-35.0) L 12/13/16 02:49 Routt % (Auto) 8.6 % (0.0-7.3) H 12/13/16 02:49 Eos % (Auto) 0.1 % (0.0-4.3) 12/13/16 02:49 Baso % (Auto) 0.6 % (0.0-1.8) 12/13/16 02:49 Lymph # 0.5 K/mm3 (1.2-5.4) L 12/13/16 02:49 Routt # 0.5 K/mm3 (0.0-0.8) 12/13/16 02:49 Eos # 0.0 K/mm3 (0.0-0.4) 12/13/16 02:49 Baso # 0.0 K/mm3 (0.0-0.1) 12/13/16 02:49 Seg Neutrophils % 81.1 % (40.0-70.0) H 12/13/16 02:49 Seg Neutrophils # 4.6 K/mm3 (1.8-7.7) 12/13/16 02:49 Sodium 134 mmol/L (137-145) L 12/13/16 02:49 Potassium 4.9 mmol/L (3.6-5.0) 12/13/16 02:49 Chloride 88.7 mmol/L (98-107) L 12/13/16 02:49 Carbon Dioxide 22 mmol/L (22-30) 12/13/16 02:49 Anion Gap 28 mmol/L 12/13/16 02:49 BUN 66 mg/dL (7-17) H 12/13/16 02:49 Creatinine 6.5 mg/dL (0.7-1.2) H 12/13/16 02:49 Estimated GFR 8 ml/min 12/13/16 02:49 BUN/Creatinine Ratio 10 % 12/13/16 02:49 Glucose 700 mg/dL (65-100) H* 12/13/16 02:49 POC Glucose > 500 (70-105) H 12/13/16 05:37 Calcium 6.9 mg/dL (8.4-10.2) L 12/13/16 02:49 Total Bilirubin 0.40 mg/dL (0.1-1.2) 12/13/16 02:49 Direct Bilirubin < 0.2 mg/dL (0-0.2) 12/13/16 02:49 Indirect Bilirubin 0.2 mg/dL 12/13/16 02:49 AST 40 units/L (5-40) 12/13/16 02:49 ALT 97 units/L (7-56) H 12/13/16 02:49 Alkaline Phosphatase 281 units/L (35-129) H 12/13/16 02:49 Total Protein 6.0 g/dL (6.3-8.2) L 12/13/16 02:49 Albumin 3.4 g/dL (3.9-5) L 12/13/16 02:49 Albumin/Globulin Ratio 1.3 % 12/13/16 02:49 Assessment and Plan Assessment and plan: DKA, blood sugar of 700 and anion gap 28 Diabetes with hyperglycemia Abdominal pain, diarrhea CAD status post CABG End-stage renal disease on hemodialysis Hypertension - Patient is on DKA protocol - Cdiff ordered and covered empirically with Flagyl - GI consulted - Nephrology consulted for dialysis - Resume appropriate home medications - Facilities Manager consulted DVT prophylaxis - On heparin Disposition - Admit to ICU. Advance Directives: Yes VTE prophylaxis?: Chemical Plan of care discussed with patient/family: Yes
[2016-12-13] MEDS ORDERED: CARAFATE PO PRN (06:39)
[2016-12-13] MEDS ORDERED: LOMOTIL PO PRN (06:39)
[2016-12-13] MEDS: DILAUDID IV PRN ×2 (07:20→16:21)
[2016-12-13 07:41] LABS: Chloride 90.8 mmol/L (98-107); Potassium 4.4 mmol/L (3.6-5.0)
[2016-12-13 07:42] LABS: Magnesium 1.9 mg/dL (1.7-2.3); Phosphorous 5.8 mg/dL (2.5-4.5)
[2016-12-13] MEDS: NovoLIN R 100 UNITS in NACL 0.9% 99 ML IV SCH ×2 (08:25→13:46)
[2016-12-13] MEDS: FLAGYL 500 MG/100 ML 500 MG/100 ML BAG IV SCH ×2 (08:42→16:23)
[2016-12-13] MEDS: HEPARIN SUB-Q SCH ×3 (08:43→22:00)
--- NOTE | 2016-12-13 08:52 | Consultation ---
History of Present Illness - Reason for Consult Consult date: 12/13/16 end stage renal disease - History of Present Illness This is a 56 year old female who presents to the E.R today with chief complaint of abdominal pain and diarrhea that presented itself yesterday. Patient states that she did not check her blood sugar level yesterday. On evaluation in E.R patient's glucose levels was noted to be greater that 500 for which she has been placed on insulin drip. Patient has history of Hypertension, Diabetes Mellitus, CAD with CABG, Anemia, PVD with Bilateral BKA and ESRD on hemodialysis every T,T,S at [facility]. Patient is due for hemodialysis today. We are being consulted for management of this patient's ESRD. Past History Past Medical History: anemia, CAD, diabetes, dialysis, ESRD, hypertension, renal failure, other (GI bleed, PVD) Past Surgical History: Other (Left AVF placement, bilateral BKA) Social history: full code. denies: smoking, alcohol abuse, prescription drug abuse, IV drug use Family history: no significant family history Medications and Allergies Allergies Allergy/AdvReac Type Severity Reaction Status Date / Time iodine Allergy Shortness Verified 04/17/15 22:31 of Breath shellfish derived Allergy Shortness Verified 09/20/13 16:36 of Breath Home Medications Medication Instructions Recorded Confirmed Last Taken Type Acetaminophen [Acetaminophen 325 mg PO Q6HR PRN 12/08/12 12/13/16 1 Day Ago History SUPPOS] Cyanocobalamin/Folic Acid [Vitamin 1 each PO DAILY 12/08/12 12/13/16 1 Day Ago History [id number] Acid Tablet] Ezetimibe [Zetia] 10 mg PO QDAY 12/08/12 12/13/16 1 Day Ago History Lisinopril [Zestril TAB] 40 mg PO QDAY 12/08/12 12/13/16 1 Day Ago History Metoprolol [Lopressor TAB] 25 mg PO BID #60 tablet 10/18/14 12/13/16 1 Day Ago Rx amLODIPine [Norvasc] 10 mg PO DAILY #30 tablet 10/18/14 12/13/16 1 Day Ago Rx Atorvastatin [Lipitor] 40 mg PO QHS 04/09/15 12/13/16 1 Day Ago History Sitagliptin Phosphate [Januvia] 100 mg PO DAILY 04/09/15 12/13/16 2 Days Ago History hydrALAZINE [Apresoline TAB] 25 mg PO BID 04/09/15 12/13/16 1 Day Ago History Aspirin EC [Aspirin Enteric Coated 81 mg PO QDAY #30 tablet. 04/22/15 1 Day Ago Rx TAB] B Complex 11/Folic/C/Biot/Zinc 800 mg PO DAILY 09/25/15 12/13/16 1 Day Ago History [Dialyvite with Zinc Tablet] Biotin 5,000 mcg PO BID 09/25/15 12/13/16 1 Day Ago History Calcium Acetate [Phoslo] 667 mg PO TID 09/25/15 12/13/16 1 Day Ago History Ergocalciferol [Vitamin D2] 1 cap PO QWEEK 09/25/15 12/13/16 1 Day Ago History Ferric Citrate (Nf) [Auryxia (Nf)] 210 mg PO TID 09/25/15 12/13/16 1 Day Ago History Nitroglycerin [Nitrostat] 0.4 mg SL Q5M PRN 09/25/15 12/13/16 1 Month Ago History Pantoprazole [Protonix TAB] 40 mg PO BID 09/25/15 12/13/16 1 Day Ago History Sucralfate [Carafate] 1 gm PO Q6HR PRN 09/25/15 12/13/16 1 Day Ago History Docusate Sodium [Colace CAP] 100 mg PO BID PRN #60 capsule 03/02/16 12/13/16 1 Day Ago Rx Cinacalcet HCl [Sensipar] 90 mg PO DAILY #30 tablet 07/22/16 12/13/16 Unknown Rx Diphenoxylate/Atropine [Lomotil] 2 tab PO QID PRN #20 tablet 11/16/16 12/13/16 Unknown Rx Active Meds: Active Medications Amlodipine Besylate (Norvasc) 10 mg PO DAILY JACI Aspirin (Halfprin Ec) 81 mg PO QDAY JACI Atorvastatin Calcium (Lipitor) 40 mg PO QHS JACI Calcium Acetate (Phoslo) 667 mg PO TIDWM JACI Cinacalcet (Sensipar) 90 mg PO DAILY JACI Dextrose (D50w (25gm) Vial) 0 gm IV PRN PRN PRN Reason: Hypoglycemia Diphenoxylate HCl/Atropine (Lomotil) 2 tab PO QID PRN PRN Reason: Diarrhea Ezetimibe (Zetia) 10 mg PO QDAY [facility] Ergocalciferol (Vitamin D2) 50,000 unit PO Zamarripa [facility] Heparin Sodium (Porcine) (Heparin) 5,000 unit SUB-Q Q8HR [facility] Last Admin: 12/13/16 08:43 Dose: Not Given Hydralazine HCl (Apresoline) 25 mg PO BID [facility] Hydromorphone HCl (Dilaudid) 1 mg IV Q4H PRN PRN Reason: Pain , Severe (7-10) Last Admin: 12/13/16 07:20 Dose: 1 mg Insulin Human Regular 100 (units/ Sodium Chloride) 100 mls @ 1 mls/hr IV TITR JACI; 1 UNITS/HR PRN Reason: Protocol Last Admin: 12/13/16 08:25 Dose: 8 units/hr, 8 mls/hr Metronidazole (Flagyl 500 Mg/100 Ml) 500 mg in 100 mls @ 100 mls/hr IV Q8H [facility] Last Admin: 12/13/16 08:42 Dose: 100 mls/hr Lisinopril (Zestril) 40 mg PO QDAY [facility] Metoprolol Tartrate (Lopressor) 25 mg PO BID [facility] Miscellaneous Medication (B Complex 11/Folic/C/Biot/Zinc [Dialyvite With Zinc Tablet]) 800 mg PO DAILY [facility] Miscellaneous Medication (Biotin [Biotin]) 5,000 mcg PO BID [facility] Miscellaneous Medication (Cyanocobalamin/Folic Acid [Vitamin N36-Ehugw Acid Tablet]) 1 each PO DAILY [facility] Miscellaneous Medication (Ferric Citrate (Nf)) 210 mg PO TID [facility] Ondansetron HCl (Zofran) 4 mg IV Q8H PRN PRN Reason: N/V unrelieved by Regyared Pantoprazole Sodium (Protonix) 40 mg PO BID [facility] Sucralfate (Carafate) 1 gm PO Q6H PRN PRN Reason: GERD Review of Systems Constitutional: fatigue, weakness, no weight loss, no weight gain, no fever, no chills, no sweats Ears, nose, mouth and throat: no ear pain, no ear discharge, no tinnitis, no decreased hearing, no nose pain, no nasal congestion, no nasal discharge Breasts: deferred Cardiovascular: no chest pain, no orthopnea, no palpitations, no rapid/ irregular heart beat, no edema, no syncope, no lightheadedness, no shortness of breath Respiratory: no cough with sputum, no excessive sputum, no hemoptysis, no shortness of breath, no dyspnea on exertion Gastrointestinal: abdominal pain, nausea, vomiting, diarrhea, change in bowel habits, no constipation, no hematemesis Genitourinary Female: no pelvic pain, no flank pain, no menorrhagia, no dysuria , no urinary frequency, no urgency, no stress incontinence Rectal: no pain, no incontinence, no bleeding Musculoskeletal: no neck pain, no shooting arm pain, no arm numbness/tingling, no low back pain, no shooting leg pain, no leg numbness/tingling Integumentary: no rash, no pruritis, no redness, no sores, no wounds, no jaundice Neurological: weakness, no transient paralysis, no paralysis, no parathesias, no numbness, no tingling, no seizures, no syncope Psychiatric: no memory loss, no change in sleep habits, no insomnia, no hypersomnia, no change in appetite, no change in libido Endocrine: high blood sugars, no cold intolerance, no heat intolerance, no polyphagia, no excessive thirst, no polydipsia Exam - Vital Signs Vital signs: Vital Signs Temp Pulse Resp BP Pulse Ox 98.6 F 77 20 145/67 97 12/13/16 01:48 12/13/16 01:48 12/13/16 01:48 12/13/16 01:48 12/13/16 01:48 - General Appearance General appearance: well-developed, appears stated age EENT: ATNC, PERRL, hearing intact, vision intact Neck: Present: neck supple, trachea midline Respiratory: Clear to Ascultation Heart: regular, S1S2 Gastrointestinal: Present: normoactive bowel sounds Integumentary: warm and dry Neurologic: alert and oriented x3 Musculoskeletal: Present: other (Bilateral BKA) Psychiatric: cooperative Results - Lab Results 12/13/16 02:49 12/13/16 07:25 Most recent lab results Calcium 7.0 mg/dL (8.4-10.2) L 12/13/16 07:25 Phosphorus 5.80 mg/dL (2.5-4.5) H 12/13/16 07:25 Magnesium 1.90 mg/dL (1.7-2.3) 12/13/16 07:25 Assessment and Plan - Patient Problems (1) Diabetic ketoacidosis Current Visit: Yes Status: Acute Qualifiers: Diabetes mellitus type: D Diabetes mellitus complication detail: D Plan to address problem: On insulin drip as per Attending (2) End stage renal disease on dialysis due to type 2 diabetes mellitus Current Visit: No Status: Acute Plan to address problem: Hemodialysis today for UF and clearance Fluid restriction of 1 liter per day Renally dose medications Obtain daily weights Assess dialysis needs daily (3) Hypertensive heart and CKD, ESRD on dialysis Current Visit: No Status: Chronic Plan to address problem: Resume anti-hypertensive agents (4) Diarrhea Current Visit: Yes Status: Acute Qualifiers: Diarrhea type: unspecified type Qualified Code(s): R19.7 - Diarrhea, unspecified Plan to address problem: GI consulted
[2016-12-13] MEDS ORDERED: PROCRIT IV PRN (08:53)
--- NOTE | 2016-12-13 08:57 | Cat Scan Report ---
FINAL REPORT EXAM: CT ABDOMEN PELVIS WO CON HISTORY: abd pain TECHNIQUE: Noncontrast CT of the abdomen and pelvis performed. No IV or gastrointestinal contrast was administered. Coronal and sagittal reformatted images were obtained. PRIORS: 11/16/2016 and 04/17/2015 FINDINGS: There is cardiomegaly. There are coronary artery atherosclerotic calcifications. There are small bilateral pleural effusions. There are extensive atherosclerotic calcifications. These involve aortoiliac vessels, celiac axis/trunk, SMA, renal arteries and TERESITA. Note that atherosclerotic calcifications involve intrahepatic, intrarenal and intrasplenic branches of respective arteries. There is mild ascites in the abdomen and pelvis. The there are multiple bilateral renal masses which are not definitively characterized on this noncontrast image but are probably cysts. Some are low-density and others are isodense to hyperdense. Most of these are seen on prior studies. Some have changed in size and changed in density with findings consistent with hemorrhagic and nonhemorrhagic cysts. There is some wall thickening involving proximal jejunum which also appears mildly dilated. This tapers to normal caliber. There fluid containing normal caliber loops mid to distally. Obstruction unlikely. Findings may relate to enteritis. There is mild generalized edema including edema involving abdominal pannus. There is no free intraperitoneal air. There is diverticulosis involving the sigmoid colon, but there is no evidence of acute diverticulitis. The bladder is unremarkable. There are unchanged minimal inguinal hernias which contain only fat. There unchanged uterine calcifications. IMPRESSION: Mild ascites throughout abdomen and pelvis. Mild generalized edema including edema involving abdominal pannus. Correlate clinically to exclude panniculitis. Abnormal proximal jejunum demonstrating wall thickening and mild dilatation. This may reflect enteritis. Lymphoma as a cause for this appearance is not excluded. Extensive atherosclerotic disease. Multiple mixed density renal lesions are not definitively characterized but probably represent hemorrhagic and nonhemorrhagic renal cysts.
[2016-12-13] MEDS ORDERED: NON-FORMULARY (Sitagliptin Phosphate [Januvia] 100 MG) PO SCH (10:00)
[2016-12-13] MEDS: LOPRESSOR PO SCH ×2 (10:09→22:00)
[2016-12-13] MEDS: NORVASC PO SCH (10:10)
[2016-12-13] MEDS: ZESTRIL PO SCH (10:11)
[2016-12-13] MEDS: APRESOLINE PO SCH ×2 (10:12→22:00)
[2016-12-13] MEDS: BIOT PO SCH (10:13)
[2016-12-13] MEDS: [UNRECOGNIZED DRUG - OTHER] PO SCH (10:13)
[2016-12-13] MEDS: ZINC PO SCH (10:13)
[2016-12-13] MEDS: B COMPLEX PO SCH (10:13)
[2016-12-13] MEDS: FOLIC PO SCH (10:13)
[2016-12-13 10:21] LABS: Calcium 6.9 mg/dL (8.4-10.2)
[2016-12-13] MEDS: HALFPRIN EC PO SCH (10:21)
[2016-12-13 10:27] LABS: Chloride 92.3 mmol/L (98-107); Potassium 4.1 mmol/L (3.6-5.0)
[2016-12-13] MEDS: PROTONIX PO SCH ×2 (10:29→22:00)
[2016-12-13] MEDS: SENSIPAR PO SCH (10:29)
[2016-12-13] MEDS: PHOSLO PO SCH ×2 (10:30→17:43)
[2016-12-13] MEDS: FERRIC CITRATE 210 MG PO SCH ×3 (10:34→20:10)
[2016-12-13] MEDS: CYANOCOBALAMIN PO SCH (12:32)
[2016-12-13] MEDS: FOLIC ACID PO SCH (12:32)
[2016-12-13] MEDS: NON-FORMULARY (Biotin [Biotin] 5,000 MCG) PO SCH ×2 (12:33→22:00)
[2016-12-13] MEDS: ZOFRAN IV PRN ×2 (14:10→21:25)
[2016-12-13 14:42] LABS: Calcium 7.3 mg/dL (8.4-10.2); Chloride 89.8 mmol/L (98-107); Potassium 4.4 mmol/L (3.6-5.0)
[2016-12-13] MEDS ORDERED: DILAUDID ONE (16:15)
--- NOTE | 2016-12-13 16:15 | Consultation ---
History of Present Illness - Reason for Consult Consult date: 12/13/16 N/V/D - History of Present Illness See Dictated note. Past History Past Medical History: anemia, CAD, diabetes, dialysis, ESRD, hypertension, renal failure, other (GI bleed, PVD) Past Surgical History: Other (Left AVF placement, bilateral BKA) Social history: full code. denies: smoking, alcohol abuse, prescription drug abuse, IV drug use Family history: no significant family history Medications and Allergies Allergies Allergy/AdvReac Type Severity Reaction Status Date / Time iodine Allergy Shortness Verified 04/17/15 22:31 of Breath shellfish derived Allergy Shortness Verified 09/20/13 16:36 of Breath Home Medications Medication Instructions Recorded Confirmed Last Taken Type Acetaminophen [Acetaminophen 325 mg PO Q6HR PRN 12/08/12 12/13/16 1 Day Ago History SUPPOS] Cyanocobalamin/Folic Acid [Vitamin 1 each PO DAILY 12/08/12 12/13/16 1 Day Ago History E41-Ezcdm Acid Tablet] Ezetimibe [Zetia] 10 mg PO QDAY 12/08/12 12/13/16 1 Day Ago History Lisinopril [Zestril TAB] 40 mg PO QDAY 12/08/12 12/13/16 1 Day Ago History Metoprolol [Lopressor TAB] 25 mg PO BID #60 tablet 10/18/14 12/13/16 1 Day Ago Rx amLODIPine [Norvasc] 10 mg PO DAILY #30 tablet 10/18/14 12/13/16 1 Day Ago Rx Atorvastatin [Lipitor] 40 mg PO QHS 04/09/15 12/13/16 1 Day Ago History Sitagliptin Phosphate [Januvia] 100 mg PO DAILY 04/09/15 12/13/16 2 Days Ago History hydrALAZINE [Apresoline TAB] 25 mg PO BID 04/09/15 12/13/16 1 Day Ago History Aspirin EC [Aspirin Enteric Coated 81 mg PO QDAY #30 tablet. 04/22/15 1 Day Ago Rx TAB] B Complex 11/Folic/C/Biot/Zinc 800 mg PO DAILY 09/25/15 12/13/16 1 Day Ago History [Dialyvite with Zinc Tablet] Biotin 5,000 mcg PO BID 09/25/15 12/13/16 1 Day Ago History Calcium Acetate [Phoslo] 667 mg PO TID 09/25/15 12/13/16 1 Day Ago History Ergocalciferol [Vitamin D2] 1 cap PO QWEEK 09/25/15 12/13/16 1 Day Ago History Ferric Citrate (Nf) [Auryxia (Nf)] 210 mg PO TID 09/25/15 12/13/16 1 Day Ago History Nitroglycerin [Nitrostat] 0.4 mg SL Q5M PRN 09/25/15 12/13/16 1 Month Ago History Pantoprazole [Protonix TAB] 40 mg PO BID 09/25/15 12/13/16 1 Day Ago History Sucralfate [Carafate] 1 gm PO Q6HR PRN 09/25/15 12/13/16 1 Day Ago History Docusate Sodium [Colace CAP] 100 mg PO BID PRN #60 capsule 03/02/16 12/13/16 1 Day Ago Rx Cinacalcet HCl [Sensipar] 90 mg PO DAILY #30 tablet 07/22/16 12/13/16 Unknown Rx Diphenoxylate/Atropine [Lomotil] 2 tab PO QID PRN #20 tablet 11/16/16 12/13/16 Unknown Rx Active Meds: Active Medications Amlodipine Besylate (Norvasc) 10 mg PO DAILY [facility] Last Admin: 12/13/16 10:10 Dose: Not Given Aspirin (Halfprin Ec) 81 mg PO QDAY [facility] Last Admin: 12/13/16 10:21 Dose: 81 mg Atorvastatin Calcium (Lipitor) 40 mg PO QHS [facility] Calcium Acetate (Phoslo) 667 mg PO TIDWM [facility] Last Admin: 12/13/16 10:30 Dose: 667 mg Cinacalcet (Sensipar) 90 mg PO DAILY [facility] Last Admin: 12/13/16 10:29 Dose: 90 mg Dextrose (D50w (25gm) Vial) 0 gm IV PRN PRN PRN Reason: Hypoglycemia Diphenoxylate HCl/Atropine (Lomotil) 2 tab PO QID PRN PRN Reason: Diarrhea Ezetimibe (Zetia) 10 mg PO QDAY [facility] Epoetin Ishmael (Procrit) 10,000 unit IV EVERARDO PRN PRN Reason: hemodialysis Ergocalciferol (Vitamin D2) 50,000 unit PO [facility] Heparin Sodium (Porcine) (Heparin) 5,000 unit SUB-Q Q8HR [facility] Last Admin: 12/13/16 14:56 Dose: Not Given Hydralazine HCl (Apresoline) 25 mg PO BID [facility] Last Admin: 12/13/16 10:12 Dose: Not Given Hydromorphone HCl (Dilaudid) 1 mg IV Q4H PRN PRN Reason: Pain , Severe (7-10) Last Admin: 12/13/16 07:20 Dose: 1 mg Insulin Human Regular 100 (units/ Sodium Chloride) 100 mls @ 1 mls/hr IV TITR JACI; 1 UNITS/HR PRN Reason: Protocol Last Titration: 12/13/16 15:23 Dose: 1.5 units/hr, 1.5 mls/hr Metronidazole (Flagyl 500 Mg/100 Ml) 500 mg in 100 mls @ 100 mls/hr IV Q8H [facility] Last Admin: 12/13/16 08:42 Dose: 100 mls/hr Lisinopril (Zestril) 40 mg PO QDAY [facility] Last Admin: 12/13/16 10:11 Dose: Not Given Metoprolol Tartrate (Lopressor) 25 mg PO BID [facility] Last Admin: 12/13/16 10:09 Dose: Not Given Miscellaneous Medication (B Complex 11/Folic/C/Biot/Zinc [Dialyvite With Zinc Tablet]) 800 mg PO DAILY [facility] Last Admin: 12/13/16 10:13 Dose: Not Given Miscellaneous Medication (Biotin [Biotin]) 5,000 mcg PO BID [facility] Last Admin: 12/13/16 12:33 Dose: Not Given Miscellaneous Medication (Cyanocobalamin/Folic Acid [Vitamin V93-Dhobp Acid Tablet]) 1 each PO DAILY [facility] Last Admin: 12/13/16 12:32 Dose: Not Given Miscellaneous Medication (Ferric Citrate (Nf)) 210 mg PO TID [facility] Last Admin: 12/13/16 10:34 Dose: Not Given Ondansetron HCl (Zofran) 4 mg IV Q8H PRN PRN Reason: N/V unrelieved by Gertta Last Admin: 12/13/16 14:10 Dose: 4 mg Pantoprazole Sodium (Protonix) 40 mg PO BID [facility] Last Admin: 10/21/17 10:29 Dose: 40 mg Sucralfate (Carafate) 1 gm PO Q6H PRN PRN Reason: GERD Exam - Constitutional Vitals: Temp Pulse Resp BP Pulse Ox 98.6 F 65 18 130/62 94 12/13/16 01:48 12/13/16 13:40 12/13/16 13:40 12/13/16 13:40 12/13/16 13:40 Results - Labs CBC & Chem 7: 12/13/16 02:49 12/13/16 13:35 Labs: Abnormal lab results 12/13/16 12/13/16 12/13/16 Range/Units 07:07 07:25 07:25 Chloride 90.8 L (98-107) mmol/L BUN 70 H (7-17) mg/dL Creatinine 6.8 H (0.7-1.2) mg/dL Glucose 545 H* (65-100) mg/dL POC Glucose 493 H (70-105) Calcium 7.0 L (8.4-10.2) mg/dL Phosphorus 5.80 H (2.5-4.5) mg/dL 12/13/16 12/13/16 12/13/16 Range/Units 09:48 09:56 11:21 Chloride 92.3 L (98-107) mmol/L BUN 72 H (7-17) mg/dL Creatinine 6.4 H (0.7-1.2) mg/dL Glucose 266 H (65-100) mg/dL POC Glucose 277 H 167 H (70-105) Calcium 6.9 L (8.4-10.2) mg/dL Phosphorus (2.5-4.5) mg/dL 12/13/16 12/13/16 12/13/16 Range/Units 12:31 13:35 14:32 Chloride 89.8 L (98-107) mmol/L BUN 72 H (7-17) mg/dL Creatinine 6.9 H (0.7-1.2) mg/dL Glucose 128 H (65-100) mg/dL POC Glucose 124 H 139 H (70-105) Calcium 7.3 L (8.4-10.2) mg/dL Phosphorus (2.5-4.5) mg/dL Assessment and Plan 1. N/V/D - likely due to DKA or to underlying viral process. Doubt other infectious process. 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 - monitor as DKA is corrected. - if persists, check stool studies 2. Elevated ALT - unclear etiology. - recheck, and see if this has been evaluated as outpatient - otherwise, will need to check Hepatitis serologies. Liver normal on CT. 3. Prox jejunal thickness on CT - uncertain clinical significance. - will decide re: upper endoscopy with peds colonoscope
[2016-12-13 16:23] LABS: Chloride 91.4 mmol/L (98-107); Potassium 4.7 mmol/L (3.6-5.0)
--- NOTE | 2016-12-13 16:39 | Consultation ---
History of Present Illness Consult date: 12/13/16 Requesting physician: IMTIAZ LUU Reason for consult: other (DKA) History of present illness: PULMONARY/CC< CONSULT NOTE (Full dictation # [id number]) Please see dictated notes for full details Past History Past Medical History: anemia, CAD, diabetes, dialysis, ESRD, hypertension, renal failure, other (GI bleed, PVD) Past Surgical History: Other (Left AVF placement, bilateral BKA) Social history: full code. denies: smoking, alcohol abuse, prescription drug abuse, IV drug use Family history: no significant family history Medications and Allergies Allergies Allergy/AdvReac Type Severity Reaction Status Date / Time iodine Allergy Shortness Verified 04/17/15 22:31 of Breath shellfish derived Allergy Shortness Verified 09/20/13 16:36 of Breath Home Medications Medication Instructions Recorded Confirmed Last Taken Type Acetaminophen [Acetaminophen 325 mg PO Q6HR PRN 12/08/12 12/13/16 1 Day Ago History SUPPOS] Cyanocobalamin/Folic Acid [Vitamin 1 each PO DAILY 12/08/12 12/13/16 1 Day Ago History L81-Zuojw Acid Tablet] Ezetimibe [Zetia] 10 mg PO QDAY 12/08/12 12/13/16 1 Day Ago History Lisinopril [Zestril TAB] 40 mg PO QDAY 12/08/12 12/13/16 1 Day Ago History Metoprolol [Lopressor TAB] 25 mg PO BID #60 tablet 10/18/14 12/13/16 1 Day Ago Rx amLODIPine [Norvasc] 10 mg PO DAILY #30 tablet 10/18/14 12/13/16 1 Day Ago Rx Atorvastatin [Lipitor] 40 mg PO QHS 04/09/15 12/13/16 1 Day Ago History Sitagliptin Phosphate [Januvia] 100 mg PO DAILY 04/09/15 12/13/16 2 Days Ago History hydrALAZINE [Apresoline TAB] 25 mg PO BID 04/09/15 12/13/16 1 Day Ago History Aspirin EC [Aspirin Enteric Coated 81 mg PO QDAY #30 tablet. 04/22/15 1 Day Ago Rx TAB] B Complex 11/Folic/C/Biot/Zinc 800 mg PO DAILY 09/25/15 12/13/16 1 Day Ago History [Dialyvite with Zinc Tablet] Biotin 5,000 mcg PO BID 09/25/15 12/13/16 1 Day Ago History Calcium Acetate [Phoslo] 667 mg PO TID 09/25/15 12/13/16 1 Day Ago History Ergocalciferol [Vitamin D2] 1 cap PO QWEEK 09/25/15 12/13/16 1 Day Ago History Ferric Citrate (Nf) [Auryxia (Nf)] 210 mg PO TID 09/25/15 12/13/16 1 Day Ago History Nitroglycerin [Nitrostat] 0.4 mg SL Q5M PRN 09/25/15 12/13/16 1 Month Ago History Pantoprazole [Protonix TAB] 40 mg PO BID 09/25/15 12/13/16 1 Day Ago History Sucralfate [Carafate] 1 gm PO Q6HR PRN 09/25/15 12/13/16 1 Day Ago History Docusate Sodium [Colace CAP] 100 mg PO BID PRN #60 capsule 03/02/16 12/13/16 1 Day Ago Rx Cinacalcet HCl [Sensipar] 90 mg PO DAILY #30 tablet 07/22/16 12/13/16 Unknown Rx Diphenoxylate/Atropine [Lomotil] 2 tab PO QID PRN #20 tablet 11/16/16 12/13/16 Unknown Rx Active Meds: Active Medications Amlodipine Besylate (Norvasc) 10 mg PO DAILY [facility] Last Admin: 12/13/16 10:10 Dose: Not Given Aspirin (Halfprin Ec) 81 mg PO QDAY [facility] Last Admin: 12/13/16 10:21 Dose: 81 mg Atorvastatin Calcium (Lipitor) 40 mg PO QHS [facility] Calcium Acetate (Phoslo) 667 mg PO TIDWM [facility] Last Admin: 12/13/16 10:30 Dose: 667 mg Cinacalcet (Sensipar) 90 mg PO DAILY [facility] Last Admin: 12/13/16 10:29 Dose: 90 mg Dextrose (D50w (25gm) Vial) 0 gm IV PRN PRN PRN Reason: Hypoglycemia Diphenoxylate HCl/Atropine (Lomotil) 2 tab PO QID PRN PRN Reason: Diarrhea Ezetimibe (Zetia) 10 mg PO QDAY [facility] Epoetin Ishmael (Procrit) 10,000 unit IV EVERARDO PRN PRN Reason: hemodialysis Ergocalciferol (Vitamin D2) 50,000 unit PO Zamarripa [facility] Heparin Sodium (Porcine) (Heparin) 5,000 unit SUB-Q Q8HR [facility] Last Admin: 12/13/16 14:56 Dose: Not Given Hydralazine HCl (Apresoline) 25 mg PO BID [facility] Last Admin: 12/13/16 10:12 Dose: Not Given Hydromorphone HCl (Dilaudid) 1 mg IV Q4H PRN PRN Reason: Pain , Severe (7-10) Last Admin: 12/13/16 16:21 Dose: 1 mg Insulin Human Regular 100 (units/ Sodium Chloride) 100 mls @ 1 mls/hr IV TITR JACI; 1 UNITS/HR PRN Reason: Protocol Last Titration: 12/13/16 16:23 Dose: 1.5 units/hr, 1.5 mls/hr Metronidazole (Flagyl 500 Mg/100 Ml) 500 mg in 100 mls @ 100 mls/hr IV Q8H [facility] Last Admin: 12/13/16 16:23 Dose: 100 mls/hr Lisinopril (Zestril) 40 mg PO QDAY [facility] Last Admin: 12/13/16 10:11 Dose: Not Given Metoprolol Tartrate (Lopressor) 25 mg PO BID [facility] Last Admin: 12/13/16 10:09 Dose: Not Given Miscellaneous Medication (B Complex 11/Folic/C/Biot/Zinc [Dialyvite With Zinc Tablet]) 800 mg PO DAILY [facility] Last Admin: 12/13/16 10:13 Dose: Not Given Miscellaneous Medication (Biotin [Biotin]) 5,000 mcg PO BID [facility] Last Admin: 12/13/16 12:33 Dose: Not Given Miscellaneous Medication (Cyanocobalamin/Folic Acid [Vitamin G82-Dlfgf Acid Tablet]) 1 each PO DAILY [facility] Last Admin: 12/13/16 12:32 Dose: Not Given Miscellaneous Medication (Ferric Citrate (Nf)) 210 mg PO TID [facility] Last Admin: 12/13/16 10:34 Dose: Not Given Ondansetron HCl (Zofran) 4 mg IV Q8H PRN PRN Reason: N/V unrelieved by Gretta Last Admin: 12/13/16 14:10 Dose: 4 mg Pantoprazole Sodium (Protonix) 40 mg PO BID JACI Last Admin: 12/13/16 10:29 Dose: 40 mg Sucralfate (Carafate) 1 gm PO Q6H PRN PRN Reason: GERD Physical Examination Vital signs: Vital Signs Pulse Ox 96 12/13/16 01:40 Results - Laboratory Findings CBC and BMP: 12/13/16 02:49 12/13/16 15:32 Abnormal lab findings: Abnormal Labs 12/13/16 12/13/16 12/13/16 07:07 07:25 07:25 Sodium Chloride 90.8 L BUN 70 H Creatinine 6.8 H Glucose 545 H* POC Glucose 493 H Calcium 7.0 L Phosphorus 5.80 H 12/13/16 12/13/16 12/13/16 09:48 09:56 11:21 Sodium Chloride 92.3 L BUN 72 H Creatinine 6.4 H Glucose 266 H POC Glucose 277 H 167 H Calcium 6.9 L Phosphorus 12/13/16 12/13/16 12/13/16 12:31 13:35 14:32 Sodium Chloride 89.8 L BUN 72 H Creatinine 6.9 H Glucose 128 H POC Glucose 124 H 139 H Calcium 7.3 L Phosphorus 12/13/16 12/13/16 12/13/16 15:24 15:32 16:24 Sodium 136 L Chloride 91.4 L BUN 73 H Creatinine 6.6 H Glucose 133 H POC Glucose 132 H 137 H Calcium 7.0 L Phosphorus
[2016-12-13] MEDS ORDERED: D5/0.45NS 1,000 ML IV ONE ×2 (17:29→20:00)
[2016-12-13] MEDS ORDERED: D5/0.45NS 1,000 ML IV SCH (18:00)
[2016-12-13] MEDS ORDERED: D5/0.45NS 1,000 ML IV NR (20:00)
[2016-12-13] MEDS ORDERED: NACL 0.9 (PRIMING MACHINE ONLY DIALYSIS) MC ONE (22:10)
--- NOTE | 2016-12-14 01:56 | Consultation ---
REASON FOR CONSULTATION: Nausea, vomiting and diarrhea. HISTORY OF PRESENT ILLNESS: The patient is a 56-year-old woman with end-stage renal disease on hemodialysis for 9 years with multiple complications including bilateral BKA. She also has significant diabetes and hypertension. She states she was in her usual state of fair health until 3 days ago when she developed onset of diarrhea, which she describes as liquid urgent bowel movements occurring 2-3 times a day with incontinence due to the urgency. They were tanned little in color with no veronica blood. Two days ago, she started to have nausea and vomiting occurring 2 or 3 times a day with primarily gastric contents and no blood noted. Because of this, she presented to the Emergency Room early this morning. GI consultation is obtained for further evaluation. Currently, the patient is not nauseated or vomiting and she complains of mild lower abdominal discomfort. She has had these episodes in the past, most recently 2 weeks ago. There is no clear etiology for them and she denies any unusual exposures or recent antibiotics. The patient is somewhat difficult to obtain a coherent history from. The patient also notes that with the diarrhea, she had lower abdominal achy discomfort with cramping and bloating. She denies fevers, chills or sweats. There were no clear exacerbants or relievers for her pain. Of note, the patient has had nausea, vomiting with streaks of blood in her emesis and she last underwent an upper endoscopy on 04/19/2015, which showed erosive esophagitis and a hiatal hernia. On admission today, she is in DKA. ALLERGIES: She has no known drug allergies. MEDICATIONS: At home, she is on folic acid, Zetia, Zestril, metoprolol, amlodipine, atorvastatin, Januvia, hydralazine, 81 mg aspirin, Protonix b.i.d., Carafate q.i.d., Sensipar and Lomotil p.r.n. PAST MEDICAL HISTORY: She has a history of, 1. Diabetes -- x 31 years. 2. End-stage renal disease -- on hemodialysis x 9 years. 3. Coronary artery bypass surgery in November 23, 2012. 4. Bilateral BKA. 5. Dialysis in the left upper extremity. 6. History of in the past for dialysis. 7. Bilateral BKA. FAMILY HISTORY: Noncontributory. SOCIAL HISTORY: Negative for tobacco or ethanol usage. REVIEW OF SYSTEMS: Noncontributory. PHYSICAL EXAMINATION: GENERAL: This is a moderately obese, disheveled middle-aged black female lying in bed in no apparent distress. HEENT: She is anicteric with pupils round and reactive. Oropharynx is clear. LUNGS: Clear bilaterally to auscultation. CARDIOVASCULAR: Regular with no extra heart sounds and 2/6 systolic murmur. ABDOMEN: Obese, but soft with good bowel sounds and mild tenderness diffusely in the lower abdomen. There is no guarding or rebound. RECTAL: Deferred. EXTREMITIES: Reveal bilateral BKA. NEUROLOGIC: She is alert and oriented x 3. LABORATORY DATA: White count is 5.6, hemoglobin is stable at 9.6, hematocrit 29.6, MCV of 99, platelet count of 158,000. Sodium 137, potassium 4.4, chloride 90, bicarbonate 26, BUN 72, creatinine 6.9, glucose 128. AST is 40, ALT is 97, alkaline phosphatase 281, total bilirubin is 0.4, albumin is 3.4. IMAGING STUDIES: Abdominal CT scan was performed on admission and shows coronary artery disease as well as calcifications and extensive atherosclerosis involving all of her mesenteric vessels. She had mild ascites in the abdomen. She has bilateral renal cysts. She has mild wall thickening involving the proximal jejunum suggesting possible enteritis or more likely edema. IMPRESSION: Nausea/vomiting/diarrhea -- etiology unclear. The patient has had these symptoms off and on over the last 2 years and they most likely represent diabetic enteropathy. Abnormal proximal jejunum showing wall thickening and mild dilation may not be of any clinical significance, but an infiltrative process does need to be excluded. The patient's symptoms currently; however, may also be due to diabetic ketoacidosis. RECOMMENDATIONS: 1. Correct DKA, monitor for symptomatic relief. 2. May consider trial of nortriptyline to see if this helps with diabetic enteropathy and diarrhea. Otherwise, we will have to try other antidiarrheal agents. Doubt infectious process except for a possible viral etiology. If diarrhea persists, stool studies should be performed. 3. Continue PPI given history of erosive esophagitis. 4. Elevated ALT -- monitor for now. Would try and get old records to see if this has been noted in the past. We do not have any record of it here at [facility] in the last 3 years. JOB# [id number] HRC/NTS
[2016-12-14] MEDS: ZOFRAN IV PRN (02:39)
[2016-12-14 03:23] LABS: Basophils % (Auto) 0.2 % (0.0-1.8); Eosinophils % (Auto) 0.3 % (0.0-4.3); Hematocrit 33.8 % (30.3-42.9); Hemoglobin 10.8 gm/dl (10.1-14.3); Mean Corpuscular HGB Conc 32 % (30-34); Mean Corpuscular Hemoglobin 32 pg (28-32); Mean Corpuscular Volume 100 fl (79-97); Platelet Count 149 K/mm3 (140-440); Red Blood Count 3.39 M/mm3 (3.65-5.03); Red Cell Distribution Width 17.4 % (13.2-15.2); White Blood Count 7.4 K/mm3 (4.5-11.0)
[2016-12-14 03:54] LABS: Albumin 3.2 g/dL (3.9-5); Albumin/Globulin Ratio 1.3 %; Bilirubin,Total 0.4 mg/dL (0.1-1.2); Calcium 8.9 mg/dL (8.4-10.2); Total Protein 5.7 g/dL (6.3-8.2)
[2016-12-14 03:55] LABS: Chloride 95.5 mmol/L (98-107); Potassium 3.3 mmol/L (3.6-5.0)
[2016-12-14] MEDS: HEPARIN SUB-Q SCH ×3 (06:00→21:32)
[2016-12-14 07:00] LABS: Calcium 8.8 mg/dL (8.4-10.2); Chloride 93.8 mmol/L (98-107); Potassium 3.4 mmol/L (3.6-5.0)
[2016-12-14] MEDS: ZETIA PO SCH ×2 (08:40→10:28)
[2016-12-14] MEDS: PHOSLO PO SCH ×4 (08:40→17:15)
[2016-12-14] MEDS: FERRIC CITRATE 210 MG PO SCH ×3 (09:05→21:09)
[2016-12-14] MEDS: FLAGYL 500 MG/100 ML 500 MG/100 ML BAG IV SCH ×3 (09:05→16:25)
[2016-12-14] MEDS ORDERED: VITAMIN D2 PO SCH (10:00)
[2016-12-14] MEDS: APRESOLINE PO SCH (10:24)
[2016-12-14] MEDS: NON-FORMULARY (Biotin [Biotin] 5,000 MCG) PO SCH ×2 (10:24→21:31)
[2016-12-14] MEDS: HALFPRIN EC PO SCH (10:25)
[2016-12-14] MEDS: LOPRESSOR PO SCH (10:26)
[2016-12-14] MEDS: NORVASC PO SCH (10:26)
[2016-12-14] MEDS: PROTONIX PO SCH (10:27)
--- NOTE | 2016-12-14 10:27 | Progress Note ---
Assessment and Plan - Patient Problems (1) Diabetic ketoacidosis Current Visit: Yes Status: Acute Qualifiers: Diabetes mellitus type: D Diabetes mellitus complication detail: D Plan to address problem: On insulin drip as per Attending (2) End stage renal disease on dialysis due to type 2 diabetes mellitus Current Visit: No Status: Acute Plan to address problem: Received hemodialysis yesterday for UF and clearance No acute indication for HD today Fluid restriction of 1 liter per day Renally dose medications Obtain daily weights Renal diet Assess dialysis needs daily (3) Hypertensive heart and CKD, ESRD on dialysis Current Visit: No Status: Chronic Plan to address problem: Resume anti-hypertensive agents (4) Diarrhea Current Visit: Yes Status: Acute Qualifiers: Diarrhea type: unspecified type Qualified Code(s): R19.7 - Diarrhea, unspecified Plan to address problem: GI consulted Subjective Date of service: 12/14/16 Principal diagnosis: ESRD Interval history: Remains in E.R. States feeling tired from having loose stools. Objective - Vital Signs Vital signs: Vital Signs - 12hr 12/13/16 12/13/16 12/13/16 22:30 22:45 23:00 Temperature Pulse Rate 68 68 70 Respiratory Rate Blood Pressure 153/56 127/60 148/70 O2 Sat by Pulse Oximetry 12/13/16 12/13/16 12/13/16 23:15 23:30 23:45 Temperature Pulse Rate 69 70 70 Respiratory Rate Blood Pressure 151/65 152/71 146/65 O2 Sat by Pulse Oximetry 12/14/16 12/14/16 12/14/16 00:00 00:15 00:30 Temperature Pulse Rate 73 72 71 Respiratory Rate Blood Pressure 144/82 125/60 141/65 O2 Sat by Pulse Oximetry 12/14/16 12/14/16 12/14/16 00:45 01:00 01:49 Temperature 98.1 F Pulse Rate 73 81 83 Respiratory 18 12 Rate Blood Pressure 135/51 153/53 133/64 O2 Sat by Pulse 95 Oximetry 12/14/16 12/14/16 12/14/16 02:00 02:31 03:01 Temperature Pulse Rate 80 72 72 Respiratory 12 12 12 Rate Blood Pressure 151/52 151/52 130/51 O2 Sat by Pulse 100 100 100 Oximetry 12/14/16 12/14/16 12/14/16 03:31 04:01 04:31 Temperature Pulse Rate 74 71 69 Respiratory 12 12 12 Rate Blood Pressure 130/51 154/45 154/45 O2 Sat by Pulse 100 100 100 Oximetry 12/14/16 12/14/16 12/14/16 05:00 05:31 06:01 Temperature Pulse Rate 72 69 69 Respiratory 12 11 L 12 Rate Blood Pressure 133/65 133/65 166/45 O2 Sat by Pulse 100 100 100 Oximetry 12/14/16 12/14/16 12/14/16 06:31 07:00 07:31 Temperature Pulse Rate 85 70 67 Respiratory 16 12 11 L Rate Blood Pressure 166/45 166/45 169/60 O2 Sat by Pulse 90 100 100 Oximetry 12/14/16 12/14/16 12/14/16 08:01 08:31 09:01 Temperature Pulse Rate 65 66 73 Respiratory 11 L 12 12 Rate Blood Pressure 123/60 123/60 125/59 O2 Sat by Pulse 100 100 100 Oximetry 12/14/16 12/14/16 09:31 10:01 Temperature Pulse Rate 89 90 Respiratory 12 14 Rate Blood Pressure 123/60 123/60 O2 Sat by Pulse 100 99 Oximetry - General Appearance General appearance: well-developed, appears stated age EENT: ATNC, PERRL, hearing intact, vision intact Neck: no JVD, supple Respiratory: Present: Clear to Ascultation Cardiology: regular, S1S2 Gastrointestinal: normoactive bowel sounds Integumentary: no rash, warm and dry Neurologic: alert and oriented x3 Musculoskeletal: other (Bilateral BKA) Psychiatric: cooperative - Lab 12/14/16 02:41 12/14/16 06:05 Most recent lab results Calcium 8.8 mg/dL (8.4-10.2) 12/14/16 06:05 Phosphorus 3.50 mg/dL (2.5-4.5) D 12/14/16 03:15 Magnesium 1.90 mg/dL (1.7-2.3) 12/13/16 07:25
[2016-12-14] MEDS: SENSIPAR PO SCH (10:39)
[2016-12-14] MEDS: B COMPLEX PO SCH (10:40)
[2016-12-14] MEDS: FOLIC PO SCH (10:40)
[2016-12-14] MEDS: BIOT PO SCH (10:40)
[2016-12-14] MEDS: ZINC PO SCH (10:40)
[2016-12-14] MEDS: [UNRECOGNIZED DRUG - OTHER] PO SCH (10:40)
[2016-12-14] MEDS: ZESTRIL PO SCH (10:41)
[2016-12-14] MEDS: FOLIC ACID PO SCH (10:41)
[2016-12-14] MEDS: CYANOCOBALAMIN PO SCH (10:41)
--- NOTE | 2016-12-14 11:42 | Consultation ---
PULMONARY CRITICAL CARE CONSULTATION CONSULTING PHYSICIAN: Steve Blanco MD REASON FOR CONSULTATION: Diabetic ketoacidosis, need for ICU admission for IV insulin administration and monitoring. CHIEF COMPLAINT AND HISTORY OF PRESENT ILLNESS: The patient is a 56-year-old -[place] female with past medical history indeed significant for a diagnosis of diabetes for over 31 years, who admits to running out of her home insulin therapy, came into the Emergency Room complaining of nausea, vomiting and diarrhea going on for about 1-2 days, was not getting any better. Of note, reportedly, she is also dialysis patient, due for dialysis on that particular day. She denied fevers, chills, sick contacts. She denied any hemoptysis. She denied chest pains or palpitations. She was evaluated and found essentially to be in diabetic ketoacidosis. The abdominal pain was sharp and it was in the lower abdomen and it was 10/10 in intensity and it appears to stay in own position and not radiate. Of note, she mentioned emesis, apparently which she felt might have contained some blood in it. When I stopped by to see her, she was feeling better. She was just being discontinued from the IV insulin drip. She was eating some food and keeping it down and was asking me for some juice. With regards to tobacco use/abuse history, she has a 10+ pack year tobacco smoking history. PAST MEDICAL HISTORY: Coronary artery disease, diabetes, hypertension, renal failure, reportedly on dialysis, and the prescription is unclear, history of hypertension, history of coronary artery disease and anemia. PAST SURGICAL HISTORY: She has had a left AV fistula placement and bilateral [id number] amputations. MEDICATIONS: She was on at the time I stopped by to see her have been reviewed. Pertinent medications included aspirin 81 mg p.o. daily, Sensipar 90 mg p.o. daily, PhosLo 667 mg p.o. t.i.d. with meals, heparin 5000 units subq q. 8 hours, hydralazine 25 mg p.o. b.i.d., lisinopril 40 mg p.o. daily, metoprolol 25 mg p.o. b.i.d., Zofran 4 mg IV q. 8 hours p.r.n. as well as Protonix 40 mg p.o. b.i.d. ALLERGIES: IODINE AND SHELLFISH, PRODUCTS. Nature of this allergy is unknown. DIET: Well-built lady. Denies significant weight loss or gain in the preceding few weeks to months. FAMILY AND SOCIAL HISTORY: Lives in the community. She did admit smoking to me, appears to have denied it to everyone. Denies alcohol or illicit drug use or abuse. REVIEW OF SYSTEMS: Complete 13-system review of systems was obtained. Pertinent positives and/or negatives as in body of history above, otherwise they are noncontributory. PHYSICAL EXAMINATION: VITAL SIGNS: At presentation and really since she has been afebrile, temperature at presentation 98.6, pulse of 77, respiratory rate of 20, blood pressure 136/67, oxygen sats were 96%, inspired oxygen concentration was not recorded. GENERAL: She is alert, appears oriented x 3, slightly anxious, in no acute respiratory distress. HEAD, EYES, EARS, NOSE AND THROAT: No sclerotic tears. No conjunctival erythema. Oropharynx is moist. Mallampati #2. No jugular venous distention. No goiter. Normocephalic, atraumatic. LUNGS: With faint inspiratory rales in the bases, otherwise clear. No wheezing. Normal respiratory effort. HEART: Heart sounds 1 and 2 are heard. They were regular in rate and rhythm at time of my evaluation. ABDOMEN: Soft, full, bowel sounds are positive, nontender. EXTREMITIES: She has had bilateral BKAs, but does have the left upper extremity AV graft. No peripheral edema. NEUROLOGIC: She has spontaneous movements to all 4 extremities including the stumps of her lower extremities and pupils equal, round, reactive to light. Extraocular muscle movements are intact. She has good insight. Mood is appropriate. Affect is anxious. LABORATORY DATA: White cell count 5600, hemoglobin 9.6, hematocrit 29.6, platelet count 158. Serum sodium 134, potassium 4.9, chloride 89, bicarbonate 22, BUN 66, creatinine 6.5, glucose 700. Liver function tests, 3.4 on the albumin, ALT elevated at 97, otherwise essentially within normal limits. Really did not have much of an anion gap, anion gap was 28 at presentation down to 26 when I saw her. No microbiology studies. ASSESSMENT AND PLAN: 1. Uncontrolled diabetes with elevated glucose and elevated anion gap acidosis. 2. End-stage renal disease, on dialysis. 3. Medication and medical care noncompliance. 4. History of coronary artery disease. 5. Hypertension. 6. Possible gastrointestinal bleed. PLAN: 1. Continue IV insulin therapy, which apparently appears to be running and continue until the anion gap closes and we will follow her clinically. Continue management as per the DKA protocol. 2. We will need hemodialysis if the accountant helper prescription for toxin and volume management. 3. Supplemental oxygen as necessary to keep sats greater than or equal to about 94%. 4. Tobacco abstinence has been counseled. 5. She is appropriately on GI and DVT prophylaxis. 6. Flu and pneumonia vaccination will be per protocol. Thank you very much for the consult. If we get her off the IV insulin that she can go to regular floor. Otherwise, she will be admitted to the intensive care unit and I believe the insulin was going at 4 units per hour. Thank you very much for the consult. We will follow along and make further recommendations as picture progresses/becomes clearer. JOB# [id number] ANA/MALCOLM
[2016-12-14 16:28] LABS: Basophils % (Auto) 0.7 % (0.0-1.8); Eosinophils % (Auto) 0.9 % (0.0-4.3); Hemoglobin 9.7 gm/dl (10.1-14.3); Mean Corpuscular HGB Conc 33 % (30-34); Mean Corpuscular Hemoglobin 32 pg (28-32); Mean Corpuscular Volume 98 fl (79-97); Platelet Count 207 K/mm3 (140-440); Red Blood Count 3.07 M/mm3 (3.65-5.03); Red Cell Distribution Width 16.8 % (13.2-15.2); White Blood Count 8.4 K/mm3 (4.5-11.0)
[2016-12-14 16:30] LABS: Calcium 7.6 mg/dL (8.4-10.2); Chloride 93.2 mmol/L (98-107); Potassium 4.5 mmol/L (3.6-5.0)
--- NOTE | 2016-12-14 16:44 | Progress Note ---
Assessment and Plan 1. N/V/D - likely due to DKA or to underlying viral process. Doubt other infectious process. 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 N/V resolved. Diarrhea persists. - monitor as DKA is corrected. - check stool studies 2. Elevated ALT - unclear etiology. - see if this has been evaluated as outpatient - otherwise, will need to check Hepatitis serologies. Liver normal on CT. 3. Prox jejunal thickness on CT - uncertain clinical significance. Now asymptomatic. - will decide re: upper endoscopy with peds colonoscope vs repeat imaging in future Subjective Date of service: 12/14/16 Principal diagnosis: ESRD Interval history: Pt complains of diarrhea, with 6 loose BMs today. No GI bleed. No N/V. Objective - Constitutional Vitals: Vital Signs - 12hr 12/14/16 12/14/16 12/14/16 05:00 05:31 06:01 Pulse Rate 72 69 69 Respiratory 12 11 L 12 Rate Blood Pressure 133/65 133/65 166/45 O2 Sat by Pulse 100 100 100 Oximetry 12/14/16 12/14/16 12/14/16 06:31 07:00 07:31 Pulse Rate 85 70 67 Respiratory 16 12 11 L Rate Blood Pressure 166/45 166/45 169/60 O2 Sat by Pulse 90 100 100 Oximetry 12/14/16 12/14/16 12/14/16 08:01 08:31 09:01 Pulse Rate 65 66 73 Respiratory 11 L 12 12 Rate Blood Pressure 123/60 123/60 125/59 O2 Sat by Pulse 100 100 100 Oximetry 12/14/16 12/14/16 12/14/16 09:31 10:01 10:24 Pulse Rate 89 90 87 Respiratory 12 14 Rate Blood Pressure 123/60 123/60 154/72 O2 Sat by Pulse 100 99 Oximetry 12/14/16 12/14/16 12/14/16 10:26 10:30 10:41 Pulse Rate 87 78 Respiratory 14 Rate Blood Pressure 157/72 161/62 129/72 O2 Sat by Pulse 100 Oximetry 12/14/16 12/14/16 12/14/16 11:00 11:30 12:00 Pulse Rate 84 77 83 Respiratory 21 13 13 Rate Blood Pressure 154/58 148/62 150/58 O2 Sat by Pulse 100 100 99 Oximetry 12/14/16 12/14/16 12/14/16 12:30 13:00 13:30 Pulse Rate 65 72 66 Respiratory 13 13 15 Rate Blood Pressure 129/57 129/55 132/93 O2 Sat by Pulse 100 100 100 Oximetry 12/14/16 12/14/16 12/14/16 14:00 14:30 15:00 Pulse Rate 70 75 72 Respiratory 14 13 13 Rate Blood Pressure 132/93 143/44 129/48 O2 Sat by Pulse 100 100 99 Oximetry 12/14/16 12/14/16 12/14/16 15:30 16:00 16:30 Pulse Rate 62 74 75 Respiratory 14 16 15 Rate Blood Pressure 121/34 121/34 127/37 O2 Sat by Pulse 98 97 97 Oximetry General appearance: Present: no acute distress - EENT Eyes: PERRL, EOM intact ENT: hearing intact - Respiratory Respiratory effort: normal - Gastrointestinal General gastrointestinal: Present: soft, non-tender - Labs CBC & Chem 7: 12/14/16 15:56 12/14/16 15:56 Labs: Abnormal lab results 12/13/16 12/13/16 12/13/16 Range/Units 17:33 18:24 19:58 RBC (3.65-5.03) M/mm3 Hgb (10.1-14.3) gm/dl Hct (30.3-42.9) % MCV (79-97) fl RDW (13.2-15.2) % Lymph % (Auto) (13.4-35.0) % [place] % (Auto) (0.0-7.3) % Lymph # (1.2-5.4) K/mm3 Seg Neutrophils % (40.0-70.0) % Potassium (3.6-5.0) mmol/L Chloride (98-107) mmol/L BUN (7-17) mg/dL Creatinine (0.7-1.2) mg/dL Glucose (65-100) mg/dL POC Glucose 120 H 129 H 129 H (70-105) Calcium (8.4-10.2) mg/dL ALT (7-56) units/L Alkaline Phosphatase (35-129) units/L Total Protein (6.3-8.2) g/dL Albumin (3.9-5) g/dL 12/14/16 12/14/16 12/14/16 Range/Units 02:27 02:41 03:15 RBC 3.39 L (3.65-5.03) M/mm3 Hgb (10.1-14.3) gm/dl Hct (30.3-42.9) % MCV 100 H (79-97) fl RDW 17.4 H (13.2-15.2) % Lymph % (Auto) 10.5 L (13.4-35.0) % [place] % (Auto) 10.4 H (0.0-7.3) % Lymph # 0.8 L (1.2-5.4) K/mm3 Seg Neutrophils % 78.6 H (40.0-70.0) % Potassium 3.3 L D (3.6-5.0) mmol/L Chloride 95.5 L (98-107) mmol/L BUN 30 H (7-17) mg/dL Creatinine 3.8 H (0.7-1.2) mg/dL Glucose 158 H (65-100) mg/dL POC Glucose 147 H (70-105) Calcium (8.4-10.2) mg/dL ALT 73 H (7-56) units/L Alkaline Phosphatase 248 H (35-129) units/L Total Protein 5.7 L (6.3-8.2) g/dL Albumin 3.2 L (3.9-5) g/dL 12/14/16 12/14/16 12/14/16 Range/Units 04:00 05:14 06:05 RBC (3.65-5.03) M/mm3 Hgb (10.1-14.3) gm/dl Hct (30.3-42.9) % MCV (79-97) fl RDW (13.2-15.2) % Lymph % (Auto) (13.4-35.0) % [place] % (Auto) (0.0-7.3) % Lymph # (1.2-5.4) K/mm3 Seg Neutrophils % (40.0-70.0) % Potassium 3.4 L (3.6-5.0) mmol/L Chloride 93.8 L (98-107) mmol/L BUN 32 H (7-17) mg/dL Creatinine 3.8 H (0.7-1.2) mg/dL Glucose 142 H (65-100) mg/dL POC Glucose 175 H 119 H (70-105) Calcium (8.4-10.2) mg/dL ALT (7-56) units/L Alkaline Phosphatase (35-129) units/L Total Protein (6.3-8.2) g/dL Albumin (3.9-5) g/dL 12/14/16 12/14/16 12/14/16 Range/Units 06:14 09:13 11:15 RBC (3.65-5.03) M/mm3 Hgb (10.1-14.3) gm/dl Hct (30.3-42.9) % MCV (79-97) fl RDW (13.2-15.2) % Lymph % (Auto) (13.4-35.0) % [place] % (Auto) (0.0-7.3) % Lymph # (1.2-5.4) K/mm3 Seg Neutrophils % (40.0-70.0) % Potassium (3.6-5.0) mmol/L Chloride (98-107) mmol/L BUN (7-17) mg/dL Creatinine (0.7-1.2) mg/dL Glucose (65-100) mg/dL POC Glucose 132 H 110 H 112 H (70-105) Calcium (8.4-10.2) mg/dL ALT (7-56) units/L Alkaline Phosphatase (35-129) units/L Total Protein (6.3-8.2) g/dL Albumin (3.9-5) g/dL 12/14/16 12/14/16 12/14/16 Range/Units 12:26 13:26 15:40 RBC (3.65-5.03) M/mm3 Hgb (10.1-14.3) gm/dl Hct (30.3-42.9) % MCV (79-97) fl RDW (13.2-15.2) % Lymph % (Auto) (13.4-35.0) % [place] % (Auto) (0.0-7.3) % Lymph # (1.2-5.4) K/mm3 Seg Neutrophils % (40.0-70.0) % Potassium (3.6-5.0) mmol/L Chloride (98-107) mmol/L BUN (7-17) mg/dL Creatinine (0.7-1.2) mg/dL Glucose (65-100) mg/dL POC Glucose 123 H 144 H 109 H (70-105) Calcium (8.4-10.2) mg/dL ALT (7-56) units/L Alkaline Phosphatase (35-129) units/L Total Protein (6.3-8.2) g/dL Albumin (3.9-5) g/dL 12/14/16 12/14/16 Range/Units 15:56 15:56 RBC 3.07 L (3.65-5.03) M/mm3 Hgb 9.7 L (10.1-14.3) gm/dl Hct 30.0 L (30.3-42.9) % MCV 98 H (79-97) fl RDW 16.8 H (13.2-15.2) % Lymph % (Auto) 10.2 L (13.4-35.0) % [place] % (Auto) 8.9 H (0.0-7.3) % Lymph # 0.9 L (1.2-5.4) K/mm3 Seg Neutrophils % 79.3 H (40.0-70.0) % Potassium (3.6-5.0) mmol/L Chloride 93.2 L (98-107) mmol/L BUN 39 H (7-17) mg/dL Creatinine 4.8 H (0.7-1.2) mg/dL Glucose 103 H (65-100) mg/dL POC Glucose (70-105) Calcium 7.6 L (8.4-10.2) mg/dL ALT (7-56) units/L Alkaline Phosphatase (35-129) units/L Total Protein (6.3-8.2) g/dL Albumin (3.9-5) g/dL
--- NOTE | 2016-12-14 16:45 | Progress Note ---
Assessment and Plan DKA Uncontolled Diabetes ESRD on Dialysis Anemia HTN Abdominal pain with N&V (related to DKA) CAD s/p CABG - continue SSI - continue long acting insulin therapy - continue HD/UF for toxin and volume clearance and for acidosis - continue oral antihypertensive medications - stressed better medication compliance ....improved ....will see prn at this point Subjective Date of service: 12/14/16 Principal diagnosis: DKA; ESRD on Dialysis; N&V Interval history: Patient is seen today for: DKA; ESRD on Dialysis; N&V Seen and examined at bedside; 24hour events reviewed; nursing and respiratory care staff consulted; no adverse overnight events reported to me; + occasional nausea but overall improved; denies acute chest pains or increased SOB; no cough or expectoration; making urine Objective Vital Signs - 12hr 12/14/16 12/14/16 12/14/16 05:00 05:31 06:01 Pulse Rate 72 69 69 Respiratory 12 11 L 12 Rate Blood Pressure 133/65 133/65 166/45 O2 Sat by Pulse 100 100 100 Oximetry 12/14/16 12/14/16 12/14/16 06:31 07:00 07:31 Pulse Rate 85 70 67 Respiratory 16 12 11 L Rate Blood Pressure 166/45 166/45 169/60 O2 Sat by Pulse 90 100 100 Oximetry 12/14/16 12/14/16 12/14/16 08:01 08:31 09:01 Pulse Rate 65 66 73 Respiratory 11 L 12 12 Rate Blood Pressure 123/60 123/60 125/59 O2 Sat by Pulse 100 100 100 Oximetry 12/14/16 12/14/16 12/14/16 09:31 10:01 10:24 Pulse Rate 89 90 87 Respiratory 12 14 Rate Blood Pressure 123/60 123/60 154/72 O2 Sat by Pulse 100 99 Oximetry 12/14/16 12/14/16 12/14/16 10:26 10:30 10:41 Pulse Rate 87 78 Respiratory 14 Rate Blood Pressure 157/72 161/62 129/72 O2 Sat by Pulse 100 Oximetry 12/14/16 12/14/16 12/14/16 11:00 11:30 12:00 Pulse Rate 84 77 83 Respiratory 21 13 13 Rate Blood Pressure 154/58 148/62 150/58 O2 Sat by Pulse 100 100 99 Oximetry 1012/14/16 12/14/16 12:30 13:00 13:30 Pulse Rate 65 72 66 Respiratory 13 13 15 Rate Blood Pressure 129/57 129/55 132/93 O2 Sat by Pulse 100 100 100 Oximetry 12/14/16 12/14/16 12/14/16 14:00 14:30 15:00 Pulse Rate 70 75 72 Respiratory 14 13 13 Rate Blood Pressure 132/93 143/44 129/48 O2 Sat by Pulse 100 100 99 Oximetry 12/14/16 12/14/16 12/14/16 15:30 16:00 16:30 Pulse Rate 62 74 75 Respiratory 14 16 15 Rate Blood Pressure 121/34 121/34 127/37 O2 Sat by Pulse 98 97 97 Oximetry Constitutional: no acute distress, alert Eyes: non-icteric ENT: oropharynx moist, other (no aphthous / stephy-oral ulcers) Neck: supple, no lymphadenopathy, no JVD, other (no thyromegaly) Effort: normal Ascultation: Bilateral: clear, diminished breath sounds Cardiovascular: regular rate and rhythm Gastrointestinal: normoactive bowel sounds, soft, non-tender, non-distended, other (No HSM) Integumentary: normal, other (No tenting; normal turgor) Extremities: no cyanosis, no edema, pulses normal, no ischemia or petechiae, other (bilateral BKA) Neurologic: normal mental status, non-focal exam, pupils equal and round, motor strength normal and, other (EOMI) Psychiatric: mood appropriate, affect normal CBC and BMP: 12/15/16 10:50 12/15/16 10:50 Abnormal lab findings: Abnormal Labs 12/13/16 12/13/16 12/13/16 07:07 07:25 07:25 RBC Hgb Hct MCV RDW Lymph % (Auto) [place] % (Auto) Lymph # Seg Neutrophils % Sodium Potassium Chloride 90.8 L BUN 70 H Creatinine 6.8 H Glucose 545 H* POC Glucose 493 H Calcium 7.0 L Phosphorus 5.80 H ALT Alkaline Phosphatase Total Protein Albumin 12/13/16 12/13/16 12/13/16 09:48 09:56 11:21 RBC Hgb Hct MCV RDW Lymph % (Auto) [place] % (Auto) Lymph # Seg Neutrophils % Sodium Potassium Chloride 92.3 L BUN 72 H Creatinine 6.4 H Glucose 266 H POC Glucose 277 H 167 H Calcium 6.9 L Phosphorus ALT Alkaline Phosphatase Total Protein Albumin 12/13/16 12/13/16 12/13/16 12:31 13:35 14:32 RBC Hgb Hct MCV RDW Lymph % (Auto) [place] % (Auto) Lymph # Seg Neutrophils % Sodium Potassium Chloride 89.8 L BUN 72 H Creatinine 6.9 H Glucose 128 H POC Glucose 124 H 139 H Calcium 7.3 L Phosphorus ALT Alkaline Phosphatase Total Protein Albumin 12/13/16 12/13/16 12/13/16 15:24 15:32 16:24 RBC Hgb Hct MCV RDW Lymph % (Auto) [place] % (Auto) Lymph # Seg Neutrophils % Sodium 136 L Potassium Chloride 91.4 L BUN 73 H Creatinine 6.6 H Glucose 133 H POC Glucose 132 H 137 H Calcium 7.0 L Phosphorus ALT Alkaline Phosphatase Total Protein Albumin 12/13/16 12/13/16 12/13/16 17:33 18:24 19:58 RBC Hgb Hct MCV RDW Lymph % (Auto) [place] % (Auto) Lymph # Seg Neutrophils % Sodium Potassium Chloride BUN Creatinine Glucose POC Glucose 120 H 129 H 129 H Calcium Phosphorus ALT Alkaline Phosphatase Total Protein Albumin 12/14/16 12/14/16 12/14/16 02:27 02:41 03:15 RBC 3.39 L Hgb Hct MCV 100 H RDW 17.4 H Lymph % (Auto) 10.5 L [place] % (Auto) 10.4 H Lymph # 0.8 L Seg Neutrophils % 78.6 H Sodium Potassium 3.3 L D Chloride 95.5 L BUN 30 H Creatinine 3.8 H Glucose 158 H POC Glucose 147 H Calcium Phosphorus ALT 73 H Alkaline Phosphatase 248 H Total Protein 5.7 L Albumin 3.2 L 12/14/16 12/14/16 12/14/16 04:00 05:14 06:05 RBC Hgb Hct MCV RDW Lymph % (Auto) [place] % (Auto) Lymph # Seg Neutrophils % Sodium Potassium 3.4 L Chloride 93.8 L BUN 32 H Creatinine 3.8 H Glucose 142 H POC Glucose 175 H 119 H Calcium Phosphorus ALT Alkaline Phosphatase Total Protein Albumin 12/14/16 12/14/16 12/14/16 06:14 09:13 11:15 RBC Hgb Hct MCV RDW Lymph % (Auto) [place] % (Auto) Lymph # Seg Neutrophils % Sodium Potassium Chloride BUN Creatinine Glucose POC Glucose 132 H 110 H 112 H Calcium Phosphorus ALT Alkaline Phosphatase Total Protein Albumin 12/14/16 12/14/16 12/14/16 12:26 13:26 15:40 RBC Hgb Hct MCV RDW Lymph % (Auto) [place] % (Auto) Lymph # Seg Neutrophils % Sodium Potassium Chloride BUN Creatinine Glucose POC Glucose 123 H 144 H 109 H Calcium Phosphorus ALT Alkaline Phosphatase Total Protein Albumin 12/14/16 12/14/16 15:56 15:56 RBC 3.07 L Hgb 9.7 L Hct 30.0 L MCV 98 H RDW 16.8 H Lymph % (Auto) 10.2 L [place] % (Auto) 8.9 H Lymph # 0.9 L Seg Neutrophils % 79.3 H Sodium Potassium Chloride 93.2 L BUN 39 H Creatinine 4.8 H Glucose 103 H POC Glucose Calcium 7.6 L Phosphorus ALT Alkaline Phosphatase Total Protein Albumin Allied health notes reviewed: nursing
--- NOTE | 2016-12-14 16:55 | Progress Note ---
Assessment and Plan Assessment and plan: DKA - Treated cording to DKA protocol - Resolved Diabetes with hyperglycemia - sliding scale insulin Abdominal pain, diarrhea - c.diff ordered but not collected - GI consult appreciated CAD status post CABG End-stage renal disease on hemodialysis - Dialysis per nephrology Hypertension - continue home medications DVT prophylaxis - On heparin Disposition - Patient can be down graded to Medical floor with remote tele. History Interval history: patient was seen and evaluated this morning, she still complains of abdominal pain but is getting better. Hospitalist Physical - Physical exam Narrative exam: Not in cardiopulmonary distress. The patient appeared well nourished and normally developed. Vital signs as documented. Head exam is unremarkable. No scleral icterus . Neck is without jugular venous distension, thyromegaly, or carotid bruits. Lungs are clear to auscultation. Cardiac exam reveals regular rate and Rhythm. First and second heart sounds normal. No murmurs, rubs or gallops. Abdominal exam reveals lower abdominal tenderness, no guarding or rigidity. Extremities bilateral BKA. BACKUP OPERATOR: Alert and oriented 3. No focal weakness. - Constitutional Vitals: Temp Pulse Resp BP Pulse Ox 98.1 F 75 15 127/37 97 12/14/16 01:00 12/14/16 16:30 12/14/16 16:30 12/14/16 16:30 12/14/16 16:30 General appearance: Present: no acute distress Results - Labs CBC & Chem 7: 12/14/16 15:56 12/14/16 15:56 Labs: Laboratory Last Values WBC 8.4 K/mm3 (4.5-11.0) 12/14/16 15:56 RBC 3.07 M/mm3 (3.65-5.03) L 12/14/16 15:56 Hgb 9.7 gm/dl (10.1-14.3) L 12/14/16 15:56 Hct 30.0 % (30.3-42.9) L 12/14/16 15:56 MCV 98 fl (79-97) H 12/14/16 15:56 MCH 32 pg (28-32) 12/14/16 15:56 MCHC 33 % (30-34) 12/14/16 15:56 RDW 16.8 % (13.2-15.2) H 12/14/16 15:56 Plt Count 207 K/mm3 (140-440) 12/14/16 15:56 Lymph % (Auto) 10.2 % (13.4-35.0) L 12/14/16 15:56 [place] % (Auto) 8.9 % (0.0-7.3) H 12/14/16 15:56 Eos % (Auto) 0.9 % (0.0-4.3) 12/14/16 15:56 Baso % (Auto) 0.7 % (0.0-1.8) 12/14/16 15:56 Lymph # 0.9 K/mm3 (1.2-5.4) L 12/14/16 15:56 [place] # 0.8 K/mm3 (0.0-0.8) 12/14/16 15:56 Eos # 0.1 K/mm3 (0.0-0.4) 12/14/16 15:56 Baso # 0.1 K/mm3 (0.0-0.1) 12/14/16 15:56 Seg Neutrophils % 79.3 % (40.0-70.0) H 12/14/16 15:56 Seg Neutrophils # 6.7 K/mm3 (1.8-7.7) 12/14/16 15:56 Sodium 137 mmol/L (137-145) 12/14/16 15:56 Potassium 4.5 mmol/L (3.6-5.0) D 12/14/16 15:56 Chloride 93.2 mmol/L (98-107) L 12/14/16 15:56 Carbon Dioxide 29 mmol/L (22-30) 12/14/16 15:56 Anion Gap 19 mmol/L 12/14/16 15:56 BUN 39 mg/dL (7-17) H 12/14/16 15:56 Creatinine 4.8 mg/dL (0.7-1.2) H 12/14/16 15:56 Estimated GFR 11 ml/min 12/14/16 15:56 BUN/Creatinine Ratio 8 % 12/14/16 15:56 Glucose 103 mg/dL (65-100) H 12/14/16 15:56 POC Glucose 109 (70-105) H 12/14/16 15:40 Osmolality 330 Mosm/kg 12/13/16 07:25 Calcium 7.6 mg/dL (8.4-10.2) L 12/14/16 15:56 Phosphorus 3.50 mg/dL (2.5-4.5) D 12/14/16 03:15 Magnesium 1.90 mg/dL (1.7-2.3) 12/13/16 07:25 Total Bilirubin 0.40 mg/dL (0.1-1.2) 12/14/16 03:15 Direct Bilirubin < 0.2 mg/dL (0-0.2) 12/13/16 02:49 Indirect Bilirubin 0.2 mg/dL 12/13/16 02:49 AST 25 units/L (5-40) 12/14/16 03:15 ALT 73 units/L (7-56) H 12/14/16 03:15 Alkaline Phosphatase 248 units/L (35-129) H 12/14/16 03:15 Total Protein 5.7 g/dL (6.3-8.2) L 12/14/16 03:15 Albumin 3.2 g/dL (3.9-5) L 12/14/16 03:15 Albumin/Globulin Ratio 1.3 % 12/14/16 03:15
[2016-12-14] MEDS ORDERED: D50W (25GM) Syringe IV PRN (20:29)
[2016-12-14] MEDS ORDERED: NOVOLOG SUB-Q SCH (22:00)
[2016-12-15] MEDS: LOPRESSOR PO SCH ×3 (01:15→23:09)
[2016-12-15] MEDS: APRESOLINE PO SCH ×3 (01:15→23:08)
[2016-12-15] MEDS: PROTONIX PO SCH ×3 (01:16→23:09)
[2016-12-15] MEDS: FLAGYL 500 MG/100 ML 500 MG/100 ML BAG IV SCH ×3 (01:25→17:59)
[2016-12-15] MEDS: HEPARIN SUB-Q SCH ×3 (06:23→15:01)
[2016-12-15] MEDS: DILAUDID IV PRN ×2 (08:39→20:32)
[2016-12-15] MEDS: SENSIPAR PO SCH (09:42)
[2016-12-15] MEDS: ZETIA PO SCH (09:42)
[2016-12-15] MEDS: HALFPRIN EC PO SCH (09:42)
[2016-12-15] MEDS: PHOSLO PO SCH ×3 (09:43→17:59)
[2016-12-15] MEDS: NORVASC PO SCH (09:43)
[2016-12-15] MEDS: FOLBEE PLUS CZ PO SCH (09:43)
[2016-12-15] MEDS: ZESTRIL PO SCH (09:44)
--- NOTE | 2016-12-15 10:56 | XRay Report ---
FINAL REPORT EXAM: XR Acute Abdomen Series CLINICAL INDICATIONS: N/V/D FINDINGS: AP chest with flat and upright abdomen. No prior radiographs. Cardiac silhouette is enlarged. Median sternotomy wires. There is mild central vascular congestion and interstitial prominence, which may reflect mild interstitial pulmonary edema. Clinical correlation. Supine and of upright views of the abdomen show a nonspecific bowel gas pattern with no evidence of obstruction or free air. Evaluation somewhat limited by the patient's large body habitus. No dilated segments of bowel. Multiple pelvic phleboliths noted. IMPRESSION: CARDIOMEGALY STATUS POST MEDIAN STERNOTOMY. MILD CENTRAL VASCULAR CONGESTION AND INTERSTITIAL PROMINENCE WHICH MAY REFLECT MILD INTERSTITIAL PULMONARY EDEMA. CLINICAL CORRELATION. NONSPECIFIC BOWEL GAS PATTERN WITH NO EVIDENCE OF OBSTRUCTION OR FREE AIR.
[2016-12-15 11:16] LABS: Basophils % (Auto) 0.4 % (0.0-1.8); Eosinophils % (Auto) 0.9 % (0.0-4.3); Hematocrit 29.3 % (30.3-42.9); Hemoglobin 9.3 gm/dl (10.1-14.3); Mean Corpuscular HGB Conc 32 % (30-34); Mean Corpuscular Hemoglobin 32 pg (28-32); Mean Corpuscular Volume 99 fl (79-97); Platelet Count 179 K/mm3 (140-440); Red Blood Count 2.96 M/mm3 (3.65-5.03); Red Cell Distribution Width 16.7 % (13.2-15.2); White Blood Count 6.2 K/mm3 (4.5-11.0)
[2016-12-15 11:37] LABS: Albumin 3.1 g/dL (3.9-5); Albumin/Globulin Ratio 1.4 %; Bilirubin,Total 0.3 mg/dL (0.1-1.2); Calcium 6.9 mg/dL (8.4-10.2); Chloride 91.6 mmol/L (98-107); Potassium 4.2 mmol/L (3.6-5.0); Total Protein 5.3 g/dL (6.3-8.2)
--- NOTE | 2016-12-15 13:33 | Progress Note ---
Assessment and Plan Assessment and plan: DKA - Treated cording to DKA protocol - Resolved Diabetes with hyperglycemia - sliding scale insulin - Blood glucose is in the target range Abdominal pain, diarrhea - c.diff ordered but not collected - stool exam ordered uncollected, communicated with the floor nurse today - GI consult appreciated - Possibe endoscope VS repeat imaging CAD status post CABG End-stage renal disease on hemodialysis - Dialysis per nephrology Hyperkalemia - conrinue dialysis Hypertension - continue home medications DVT prophylaxis - On heparin Disposition - continue inpatient care. History Interval history: patient was seen and evaluated this morning, patient was complaining nausea, and persistent diarrhea. Hospitalist Physical - Physical exam Narrative exam: Not in cardiopulmonary distress. The patient appeared well nourished and normally developed. Vital signs as documented. Head exam is unremarkable. No scleral icterus . Neck is without jugular venous distension, thyromegaly, or carotid bruits. Lungs are clear to auscultation. Cardiac exam reveals regular rate and Rhythm. First and second heart sounds normal. No murmurs, rubs or gallops. Abdominal exam reveals lower abdominal tenderness, no guarding or rigidity. Extremities bilateral BKA. ROLL WEIGHER: Alert and oriented 3. No focal weakness. - Constitutional Vitals: Temp Pulse Resp BP Pulse Ox 98.3 F 75 18 177/59 100 12/15/16 08:00 12/15/16 08:00 12/15/16 08:00 12/15/16 08:00 12/15/16 08:00 General appearance: Present: no acute distress Results - Labs CBC & Chem 7: 12/15/16 10:50 12/15/16 10:50 Labs: Laboratory Last Values WBC 6.2 K/mm3 (4.5-11.0) 12/15/16 10:50 RBC 2.96 M/mm3 (3.65-5.03) L 12/15/16 10:50 Hgb 9.3 gm/dl (10.1-14.3) L 12/15/16 10:50 Hct 29.3 % (30.3-42.9) L 12/15/16 10:50 MCV 99 fl (79-97) H 12/15/16 10:50 MCH 32 pg (28-32) 12/15/16 10:50 MCHC 32 % (30-34) 12/15/16 10:50 RDW 16.7 % (13.2-15.2) H 12/15/16 10:50 Plt Count 179 K/mm3 (140-440) 12/15/16 10:50 Lymph % (Auto) 12.7 % (13.4-35.0) L 12/15/16 10:50 [place] % (Auto) 8.3 % (0.0-7.3) H 12/15/16 10:50 Eos % (Auto) 0.9 % (0.0-4.3) 12/15/16 10:50 Baso % (Auto) 0.4 % (0.0-1.8) 12/15/16 10:50 Lymph # 0.8 K/mm3 (1.2-5.4) L 12/15/16 10:50 [place] # 0.5 K/mm3 (0.0-0.8) 12/15/16 10:50 Eos # 0.1 K/mm3 (0.0-0.4) 12/15/16 10:50 Baso # 0.0 K/mm3 (0.0-0.1) 12/15/16 10:50 Seg Neutrophils % 77.7 % (40.0-70.0) H 12/15/16 10:50 Seg Neutrophils # 4.8 K/mm3 (1.8-7.7) 12/15/16 10:50 Sodium 134 mmol/L (137-145) L 12/15/16 10:50 Potassium 4.2 mmol/L (3.6-5.0) 12/15/16 10:50 Chloride 91.6 mmol/L (98-107) L 12/15/16 10:50 Carbon Dioxide 21 mmol/L (22-30) L D 12/15/16 10:50 Anion Gap 26 mmol/L 12/15/16 10:50 BUN 48 mg/dL (7-17) H 12/15/16 10:50 Creatinine 5.7 mg/dL (0.7-1.2) H 12/15/16 10:50 Estimated GFR 9 ml/min 12/15/16 10:50 BUN/Creatinine Ratio 8 % 12/15/16 10:50 Glucose 159 mg/dL (65-100) H 12/15/16 10:50 POC Glucose 163 (70-105) H 12/15/16 12:00 Osmolality 330 Mosm/kg 12/13/16 07:25 Calcium 6.9 mg/dL (8.4-10.2) L 12/15/16 10:50 Phosphorus 3.50 mg/dL (2.5-4.5) D 12/14/16 03:15 Magnesium 1.90 mg/dL (1.7-2.3) 12/13/16 07:25 Total Bilirubin 0.30 mg/dL (0.1-1.2) 12/15/16 10:50 Direct Bilirubin < 0.2 mg/dL (0-0.2) 12/13/16 02:49 Indirect Bilirubin 0.2 mg/dL 12/13/16 02:49 AST 16 units/L (5-40) 12/15/16 10:50 ALT 45 units/L (7-56) 12/15/16 10:50 Alkaline Phosphatase 230 units/L (35-129) H 12/15/16 10:50 Total Protein 5.3 g/dL (6.3-8.2) L 12/15/16 10:50 Albumin 3.1 g/dL (3.9-5) L 12/15/16 10:50 Albumin/Globulin Ratio 1.4 % 12/15/16 10:50 Hyperkalemia
--- NOTE | 2016-12-15 15:26 | Progress Note ---
Assessment and Plan - Patient Problems (1) Diabetic ketoacidosis Current Visit: Yes Status: Acute Qualifiers: Diabetes mellitus type: D Diabetes mellitus complication detail: D Plan to address problem: S/P insulin drip. Now on Novolog as per Attending (2) End stage renal disease on dialysis due to type 2 diabetes mellitus Current Visit: No Status: Acute Plan to address problem: Hemodialysis tomorrow for UF and clearance No acute indication for HD today Fluid restriction of 1 liter per day Renally dose medications Obtain daily weights Renal diet Assess dialysis needs daily (3) Hypertensive heart and CKD, ESRD on dialysis Current Visit: No Status: Chronic Plan to address problem: Resume anti-hypertensive agents (4) Diarrhea Current Visit: Yes Status: Acute Qualifiers: Diarrhea type: unspecified type Qualified Code(s): R19.7 - Diarrhea, unspecified Plan to address problem: Stool collection for C. Diff. GI onboard Subjective Date of service: 12/15/16 Principal diagnosis: DKA; ESRD on Dialysis; N&V Interval history: Patient seen lying in bed. States feeling a little better today. States diarrhea is better today. Objective - Vital Signs Vital signs: Vital Signs - 12hr 12/15/16 08:00 Temperature 98.3 F Pulse Rate 75 Respiratory 18 Rate Blood Pressure 177/59 [Left] O2 Sat by Pulse 100 Oximetry - General Appearance General appearance: well-developed, appears stated age EENT: ATNC, PERRL, hearing intact, vision intact Neck: no JVD, supple Respiratory: Present: Clear to Ascultation Cardiology: regular, S1S2 Gastrointestinal: normoactive bowel sounds Integumentary: warm and dry Neurologic: alert and oriented x3 Musculoskeletal: other (bilateral bka ) Psychiatric: cooperative - Lab 12/15/16 10:50 12/15/16 10:50 Most recent lab results Calcium 6.9 mg/dL (8.4-10.2) L 12/15/16 10:50 Phosphorus 3.50 mg/dL (2.5-4.5) D 12/14/16 03:15 Magnesium 1.90 mg/dL (1.7-2.3) 12/13/16 07:25
--- NOTE | 2016-12-15 16:39 | Gastroenterology Progress Note ---
Assessment and Plan 1.N/V- likely due to DKA or to underlying viral process- now resolved with pt tolerating diet 2.diarrhea- improving -pt reports no BMs today- verified and confirmed by nurse -stool studies pending 3.elevated ALT-now WNL -etiology most likely due to ischemic hepatopathy 2/2 metabolic derangements from DKA which has resolved with resolution of DKA -liver normal on CT 4.Prox jejunal thickness on CT - uncertain clinical significance. Now asymptomatic. - will decide re: upper endoscopy with peds colonoscope vs repeat imaging in future Subjective Date of service: 12/15/16 Principal diagnosis: N/V/D Interval history: Patient resting in bed. No acute distress noted. Denies N/V today and tolerating diet. Reports diarrhea improving with no BMs today with verification given by nursing. Objective - Constitutional Vitals: Temp Pulse Resp BP Pulse Ox 98.3 F 75 18 177/59 100 12/15/16 08:00 12/15/16 08:00 12/15/16 08:00 12/15/16 08:00 12/15/16 08:00 General appearance: no acute distress, well-nourished - EENT Eyes: PERRL, EOM intact ENT: hearing intact - Respiratory Respiratory: bilateral: CTA (anterior) - Cardiovascular Rhythm: regular Heart Sounds: Present: S1 & S2 - Extremities Extremity abnormal: other ([place] BKA) - Gastrointestinal General gastrointestinal: Present: soft, non-tender, non-distended, normal bowel sounds - Integumentary Integumentary: Present: warm, dry - Labs CBC & Chem 7: 12/15/16 10:50 12/15/16 10:50 Labs: Laboratory Results - last 24 hr 12/13/16 12/14/16 12/14/16 13:35 15:56 22:40 WBC RBC Hgb Hct MCV MCH MCHC RDW Plt Count Lymph % (Auto) [place] % (Auto) Eos % (Auto) Baso % (Auto) Lymph # [place] # Eos # Baso # Seg Neutrophils % Seg Neutrophils # Sodium Potassium 4.5 D Chloride Carbon Dioxide Anion Gap BUN Creatinine Estimated GFR BUN/Creatinine Ratio Glucose POC Glucose 124 H 99 Calcium Total Bilirubin AST ALT Alkaline Phosphatase Total Protein Albumin Albumin/Globulin Ratio 12/15/16 12/15/16 12/15/16 06:42 10:50 10:50 WBC 6.2 RBC 2.96 L Hgb 9.3 L Hct 29.3 L MCV 99 H MCH 32 MCHC 32 RDW 16.7 H Plt Count 179 Lymph % (Auto) 12.7 L [place] % (Auto) 8.3 H Eos % (Auto) 0.9 Baso % (Auto) 0.4 Lymph # 0.8 L [place] # 0.5 Eos # 0.1 Baso # 0.0 Seg Neutrophils % 77.7 H Seg Neutrophils # 4.8 Sodium 134 L Potassium 4.2 Chloride 91.6 L Carbon Dioxide 21 L D Anion Gap 26 BUN 48 H Creatinine 5.7 H Estimated GFR 9 BUN/Creatinine Ratio 8 Glucose 159 H POC Glucose 142 H Calcium 6.9 L Total Bilirubin 0.30 AST 16 ALT 45 Alkaline Phosphatase 230 H Total Protein 5.3 L Albumin 3.1 L Albumin/Globulin Ratio 1.4 12/15/16 12:00 WBC RBC Hgb Hct MCV MCH MCHC RDW Plt Count Lymph % (Auto) [place] % (Auto) Eos % (Auto) Baso % (Auto) Lymph # [place] # Eos # Baso # Seg Neutrophils % Seg Neutrophils # Sodium Potassium Chloride Carbon Dioxide Anion Gap BUN Creatinine Estimated GFR BUN/Creatinine Ratio Glucose POC Glucose 163 H Calcium Total Bilirubin AST ALT Alkaline Phosphatase Total Protein Albumin Albumin/Globulin Ratio
[2016-12-15] MEDS: VITAMIN B-12 PO SCH (17:54)
--- NOTE | 2016-12-15 23:42 | Progress Note ---
Assessment and Plan Patient alert, awake. Resting on nasal canula 2 litres. O2 saturation 100%. No complaint of chest pain or shortness of breath. - Patient Problems (1) Shortness of breath Current Visit: No Status: Acute Plan to address problem: Shortness of breath improved. No acute respiratory distress. O2 saturation 98% on 2 litres O2. (2) Diabetic ketoacidosis Current Visit: Yes Status: Acute Qualifiers: Diabetes mellitus type: D Diabetes mellitus complication detail: D Plan to address problem: Improving. Bicarb 21 today. (3) Diabetes mellitus, type 2 Current Visit: No Status: Chronic Qualifiers: Diabetes mellitus complication status: D Diabetes mellitus complication detail: D Diabetic retinopathy severity: D Proliferative retinopathy type: P Diabetes mellitus macular edema: D Diabetes mellitus half-way insulin use : D Laterality: L Chronic kidney disease stage: C Plan to address problem: Management as per primary care. (4) ESRD (end stage renal disease) on dialysis Current Visit: No Status: Chronic Plan to address problem: Management as per nephrology. (5) Hx of CABG Current Visit: No Status: Chronic Plan to address problem: Management as per primary care and cardiology. (6) Hypertension Current Visit: No Status: Chronic Qualifiers: Hypertension type: essential hypertension Qualified Code(s): I10 - Essential (primary) hypertension Plan to address problem: Management as per primary care. Subjective Date of service: 12/15/16 Principal diagnosis: N/V/D Interval history: Patient alert, awake. Resting on nasal canula 2 litres. O2 saturation 100%. No complaint of chest pain or shortness of breath. Objective Vital Signs - 12hr 12/15/16 12/15/16 12/15/16 16:35 23:08 23:09 Temperature 97.9 F Pulse Rate 80 82 82 Respiratory 18 Rate Blood Pressure 166/64 166/64 Blood Pressure 160/61 [Left] Constitutional: no acute distress, alert Eyes: non-icteric ENT: oropharynx moist, other (no aphthous / stephy-oral ulcers) Neck: supple, no lymphadenopathy, no JVD, other (no thyromegaly) Effort: normal Ascultation: Bilateral: clear, diminished breath sounds Cardiovascular: regular rate and rhythm Gastrointestinal: normoactive bowel sounds, soft, non-tender, non-distended, other (No HSM) Integumentary: normal, other (No tenting; normal turgor) Extremities: no cyanosis, no edema, pulses normal, no ischemia or petechiae, other (bilateral BKA) Neurologic: normal mental status, non-focal exam, pupils equal and round, motor strength normal and, other (EOMI) Psychiatric: mood appropriate, affect normal CBC and BMP: 12/15/16 10:50 12/15/16 10:50 Abnormal lab findings: Abnormal Labs 12/13/16 12/13/16 12/13/16 07:07 07:25 07:25 RBC Hgb Hct MCV RDW Lymph % (Auto) [place] % (Auto) Lymph # Seg Neutrophils % Sodium Potassium Chloride 90.8 L Carbon Dioxide BUN 70 H Creatinine 6.8 H Glucose 545 H* POC Glucose 493 H Calcium 7.0 L Phosphorus 5.80 H ALT Alkaline Phosphatase Total Protein Albumin 12/13/16 12/13/16 12/13/16 09:48 09:56 11:21 RBC Hgb Hct MCV RDW Lymph % (Auto) [place] % (Auto) Lymph # Seg Neutrophils % Sodium Potassium Chloride 92.3 L Carbon Dioxide BUN 72 H Creatinine 6.4 H Glucose 266 H POC Glucose 277 H 167 H Calcium 6.9 L Phosphorus ALT Alkaline Phosphatase Total Protein Albumin 12/13/16 12/13/16 12/13/16 12:31 13:35 13:35 RBC Hgb Hct MCV RDW Lymph % (Auto) [place] % (Auto) Lymph # Seg Neutrophils % Sodium Potassium Chloride 89.8 L Carbon Dioxide BUN 72 H Creatinine 6.9 H Glucose 128 H POC Glucose 124 H 124 H Calcium 7.3 L Phosphorus ALT Alkaline Phosphatase Total Protein Albumin 12/13/16 12/13/16 12/13/16 14:32 15:24 15:32 RBC Hgb Hct MCV RDW Lymph % (Auto) [place] % (Auto) Lymph # Seg Neutrophils % Sodium 136 L Potassium Chloride 91.4 L Carbon Dioxide BUN 73 H Creatinine 6.6 H Glucose 133 H POC Glucose 139 H 132 H Calcium 7.0 L Phosphorus ALT Alkaline Phosphatase Total Protein Albumin 12/13/16 12/13/16 12/13/16 16:24 17:33 18:24 RBC Hgb Hct MCV RDW Lymph % (Auto) [place] % (Auto) Lymph # Seg Neutrophils % Sodium Potassium Chloride Carbon Dioxide BUN Creatinine Glucose POC Glucose 137 H 120 H 129 H Calcium Phosphorus ALT Alkaline Phosphatase Total Protein Albumin 12/13/16 12/14/16 12/14/16 19:58 02:27 02:41 RBC 3.39 L Hgb Hct MCV 100 H RDW 17.4 H Lymph % (Auto) 10.5 L [place] % (Auto) 10.4 H Lymph # 0.8 L Seg Neutrophils % 78.6 H Sodium Potassium Chloride Carbon Dioxide BUN Creatinine Glucose POC Glucose 129 H 147 H Calcium Phosphorus ALT Alkaline Phosphatase Total Protein Albumin 12/14/16 12/14/16 12/14/16 03:15 04:00 05:14 RBC Hgb Hct MCV RDW Lymph % (Auto) [place] % (Auto) Lymph # Seg Neutrophils % Sodium Potassium 3.3 L D Chloride 95.5 L Carbon Dioxide BUN 30 H Creatinine 3.8 H Glucose 158 H POC Glucose 175 H 119 H Calcium Phosphorus ALT 73 H Alkaline Phosphatase 248 H Total Protein 5.7 L Albumin 3.2 L 12/14/16 12/14/16 12/14/16 06:05 06:14 09:13 RBC Hgb Hct MCV RDW Lymph % (Auto) [place] % (Auto) Lymph # Seg Neutrophils % Sodium Potassium 3.4 L Chloride 93.8 L Carbon Dioxide BUN 32 H Creatinine 3.8 H Glucose 142 H POC Glucose 132 H 110 H Calcium Phosphorus ALT Alkaline Phosphatase Total Protein Albumin 12/14/16 12/14/16 12/14/16 11:15 12:26 13:26 RBC Hgb Hct MCV RDW Lymph % (Auto) [place] % (Auto) Lymph # Seg Neutrophils % Sodium Potassium Chloride Carbon Dioxide BUN Creatinine Glucose POC Glucose 112 H 123 H 144 H Calcium Phosphorus ALT Alkaline Phosphatase Total Protein Albumin 12/14/16 12/14/16 12/14/16 15:40 15:56 15:56 RBC 3.07 L Hgb 9.7 L Hct 30.0 L MCV 98 H RDW 16.8 H Lymph % (Auto) 10.2 L [place] % (Auto) 8.9 H Lymph # 0.9 L Seg Neutrophils % 79.3 H Sodium Potassium Chloride 93.2 L Carbon Dioxide BUN 39 H Creatinine 4.8 H Glucose 103 H POC Glucose 109 H Calcium 7.6 L Phosphorus ALT Alkaline Phosphatase Total Protein Albumin 12/15/16 12/15/16 12/15/16 06:42 10:50 10:50 RBC 2.96 L Hgb 9.3 L Hct 29.3 L MCV 99 H RDW 16.7 H Lymph % (Auto) 12.7 L [place] % (Auto) 8.3 H Lymph # 0.8 L Seg Neutrophils % 77.7 H Sodium 134 L Potassium Chloride 91.6 L Carbon Dioxide 21 L D BUN 48 H Creatinine 5.7 H Glucose 159 H POC Glucose 142 H Calcium 6.9 L Phosphorus ALT Alkaline Phosphatase 230 H Total Protein 5.3 L Albumin 3.1 L 12/15/16 12/15/16 12/15/16 12:00 16:59 22:21 RBC Hgb Hct MCV RDW Lymph % (Auto) [place] % (Auto) Lymph # Seg Neutrophils % Sodium Potassium Chloride Carbon Dioxide BUN Creatinine Glucose POC Glucose 163 H 225 H 260 H Calcium Phosphorus ALT Alkaline Phosphatase Total Protein Albumin Allied health notes reviewed: nursing
[2016-12-16] MEDS: FLAGYL 500 MG/100 ML 500 MG/100 ML BAG IV SCH ×3 (00:37→15:18)
[2016-12-16] MEDS: HEPARIN SUB-Q SCH ×4 (05:52→21:39)
[2016-12-16] MEDS: NOVOLOG SUB-Q SCH ×5 (05:56→21:48)
[2016-12-16 09:22] LABS: Basophils % (Auto) 0.4 % (0.0-1.8); Eosinophils % (Auto) 1.5 % (0.0-4.3); Hematocrit 28.2 % (30.3-42.9); Hemoglobin 9.5 gm/dl (10.1-14.3); Mean Corpuscular HGB Conc 34 % (30-34); Mean Corpuscular Hemoglobin 33 pg (28-32); Mean Corpuscular Volume 97 fl (79-97); Platelet Count 178 K/mm3 (140-440); Red Blood Count 2.92 M/mm3 (3.65-5.03); Red Cell Distribution Width 16.2 % (13.2-15.2)
[2016-12-16] MEDS: PHOSLO PO SCH ×3 (09:34→18:34)
[2016-12-16 09:43] LABS: Albumin 3.1 g/dL (3.9-5); Albumin/Globulin Ratio 1.4 %; Bilirubin,Total 0.2 mg/dL (0.1-1.2); Calcium 6.5 mg/dL (8.4-10.2); Chloride 91.6 mmol/L (98-107); Potassium 4.4 mmol/L (3.6-5.0); Total Protein 5.3 g/dL (6.3-8.2)
--- NOTE | 2016-12-16 09:59 | Progress Note ---
Assessment and Plan (1) Diabetic ketoacidosis Current Visit: Yes Status: Acute Qualifiers: Diabetes mellitus type: D Diabetes mellitus complication detail: D Plan to address problem: S/P insulin drip. Now on Novolog as per primary (2) End stage renal disease on dialysis due to type 2 diabetes mellitus Current Visit: No Status: Acute Plan to address problem: Hemodialysis today for UF and clearance Fluid restriction of 1 liter per day Renally dose medications Obtain daily weights Renal diet Assess dialysis needs daily (3) Hypertensive heart and CKD, ESRD on dialysis Current Visit: No Status: Chronic Plan to address problem: Resume anti-hypertensive agents (4) Diarrhea Current Visit: Yes Status: Acute Qualifiers: Diarrhea type: unspecified type Qualified Code(s): R19.7 - Diarrhea, unspecified Plan to address problem: on Flagyl GI onboard Subjective Date of service: 12/16/16 Principal diagnosis: N/V/D Interval history: diarrhea cont to improve Objective - Vital Signs Vital signs: Vital Signs - 12hr 12/15/16 12/15/16 12/16/16 23:08 23:09 08:37 Temperature 98 F Pulse Rate 82 82 77 Respiratory 18 Rate Blood Pressure 166/64 166/64 Blood Pressure 164/61 [Left] O2 Sat by Pulse 98 Oximetry - General Appearance General appearance: well-developed, well-nourished, appears stated age EENT: ATNC, PERRL, mucous membranes moist Neck: no JVD, no carotid bruit Respiratory: Present: Clear to Ascultation. Absent: Rales, Ronchi Cardiology: regular, S1S2 Gastrointestinal: normoactive bowel sounds, no tenderness, no distended, no guarding Integumentary: no rash, warm and dry Neurologic: no focal deficit, no asterixis, alert and oriented x3 Musculoskeletal: other (no edema ) Psychiatric: mood/affect appropriate, cooperative - Lab 12/16/16 08:34 12/16/16 08:34 Most recent lab results Calcium 6.5 mg/dL (8.4-10.2) L 12/16/16 08:34 Phosphorus 3.50 mg/dL (2.5-4.5) D 12/14/16 03:15 Magnesium 1.90 mg/dL (1.7-2.3) 12/13/16 07:25
[2016-12-16] MEDS ORDERED: NACL 0.9 (PRIMING MACHINE ONLY DIALYSIS) MC ONE (12:38)
[2016-12-16] MEDS: HALFPRIN EC PO SCH (15:19)
[2016-12-16] MEDS: NORVASC PO SCH (15:19)
[2016-12-16] MEDS: SENSIPAR PO SCH (15:19)
[2016-12-16] MEDS: FOLBEE PLUS CZ PO SCH (15:19)
[2016-12-16] MEDS: VITAMIN B-12 PO SCH (15:19)
[2016-12-16] MEDS: PROTONIX PO SCH ×2 (15:24→21:39)
[2016-12-16] MEDS: LOPRESSOR PO SCH ×2 (15:24→21:40)
[2016-12-16] MEDS: ZESTRIL PO SCH (15:24)
[2016-12-16] MEDS: APRESOLINE PO SCH ×2 (15:24→21:40)
[2016-12-16] MEDS: ZETIA PO SCH (15:33)
--- NOTE | 2016-12-16 16:14 | Event Note ---
Date: 12/16/16 CT reviewed, and compared with 10/2016 CT. Jejunal wall thickening nonspecific and likely due to volume overload and edema. Given lack of symptoms when not in DKA, would manage expectantly. If symptoms occur, will do upper endoscopy with peds colonoscope.
[2016-12-16] MEDS: ZOFRAN IV PRN (16:55)
--- NOTE | 2016-12-16 17:35 | Progress Note ---
Assessment and Plan Assessment and Plan DKA - Treated cording to DKA protocol - Resolved Diabetes with hyperglycemia - sliding scale insulin - Blood glucose is in the target range Adjust insulin dosage.BG still high in 300 range. Abdominal pain, diarrhea - c.diff ordered but not collected - stool exam ordered uncollected, communicated with the floor nurse today - GI consult appreciated - Possibe endoscope VS repeat imaging CAD status post CABG End-stage renal disease on hemodialysis - Dialysis per nephrology Hyperkalemia - conrinue dialysis Hypertension - continue home medications DVT prophylaxis - On heparin Disposition - continue inpatient care. Subjective Date of service: 12/16/16 Principal diagnosis: DKA Interval history: Doing better Objective - Constitutional Vitals: Vital Signs - 12hr 12/16/16 12/16/16 12/16/16 08:37 10:10 10:20 Temperature 98 F 98.0 F Pulse Rate 77 64 64 Respiratory 18 20 Rate Blood Pressure 117/58 122/58 Blood Pressure 164/61 [Left] O2 Sat by Pulse 98 Oximetry 12/16/16 12/16/16 12/16/16 10:30 10:45 11:00 Temperature Pulse Rate 63 65 65 Respiratory Rate Blood Pressure 128/52 130/64 134/65 Blood Pressure [Left] O2 Sat by Pulse Oximetry 12/16/16 12/16/16 12/16/16 11:15 11:30 11:45 Temperature Pulse Rate 64 65 64 Respiratory Rate Blood Pressure 142/65 145/68 134/72 Blood Pressure [Left] O2 Sat by Pulse Oximetry 12/16/16 12/16/16 12/16/16 12:00 12:15 12:30 Temperature Pulse Rate 74 75 72 Respiratory Rate Blood Pressure 165/71 149/60 168/58 Blood Pressure [Left] O2 Sat by Pulse Oximetry 12/16/16 12/16/16 12/16/16 12:45 13:00 13:15 Temperature Pulse Rate 71 72 71 Respiratory Rate Blood Pressure 167/75 168/77 178/80 Blood Pressure [Left] O2 Sat by Pulse Oximetry 12/16/16 12/16/16 12/16/16 13:30 13:45 13:50 Temperature Pulse Rate 40 L 69 75 Respiratory Rate Blood Pressure 182/82 171/71 183/79 Blood Pressure [Left] O2 Sat by Pulse Oximetry 12/16/16 12/16/16 12/16/16 14:10 14:58 15:19 Temperature 98.3 F 98.4 F Pulse Rate 72 78 78 Respiratory 20 18 Rate Blood Pressure 166/83 164/65 Blood Pressure 164/65 [Left] O2 Sat by Pulse 98 Oximetry 12/16/16 15:24 Temperature Pulse Rate 78 Respiratory Rate Blood Pressure 164/65 Blood Pressure [Left] O2 Sat by Pulse Oximetry General appearance: Present: no acute distress, well-nourished - EENT Eyes: PERRL, EOM intact ENT: hearing intact, clear oral mucosa Ears: bilateral: normal - Neck Neck: supple, normal ROM - Respiratory Respiratory effort: normal Respiratory: bilateral: CTA - Breasts Breasts: normal - Cardiovascular Rhythm: regular Heart Sounds: Present: S1 & S2. Absent: gallop, rub Extremities: pulses intact, No edema, normal color, Full ROM - Gastrointestinal General gastrointestinal: Present: soft, non-tender, non-distended, normal bowel sounds - Genitourinary Female genitourinary: normal - Integumentary Integumentary: clear, warm, dry - Musculoskeletal Musculoskeletal: 1, strength equal bilaterally - Neurologic Neurologic: moves all extremities - Psychiatric Psychiatric: memory intact, appropriate mood/affect, intact judgment & insight - Labs CBC & Chem 7: 12/16/16 08:34 12/16/16 08:34 Labs: Abnormal lab results 12/15/16 12/15/16 12/16/16 Range/Units 16:59 22:21 06:21 RBC (3.65-5.03) M/mm3 Hgb (10.1-14.3) gm/dl Hct (30.3-42.9) % MCH (28-32) pg RDW (13.2-15.2) % [place] % (Auto) (0.0-7.3) % Lymph # (1.2-5.4) K/mm3 Seg Neutrophils % (40.0-70.0) % Sodium (137-145) mmol/L Chloride (98-107) mmol/L BUN (7-17) mg/dL Creatinine (0.7-1.2) mg/dL Glucose (65-100) mg/dL POC Glucose 225 H 260 H 323 H (70-105) Calcium (8.4-10.2) mg/dL Alkaline Phosphatase (35-129) units/L Total Protein (6.3-8.2) g/dL Albumin (3.9-5) g/dL 12/16/16 12/16/16 Range/Units 08:34 08:34 RBC 2.92 L (3.65-5.03) M/mm3 Hgb 9.5 L (10.1-14.3) gm/dl Hct 28.2 L (30.3-42.9) % MCH 33 H (28-32) pg RDW 16.2 H (13.2-15.2) % [place] % (Auto) 9.6 H (0.0-7.3) % Lymph # 0.7 L (1.2-5.4) K/mm3 Seg Neutrophils % 73.6 H (40.0-70.0) % Sodium 133 L (137-145) mmol/L Chloride 91.6 L (98-107) mmol/L BUN 59 H (7-17) mg/dL Creatinine 6.6 H (0.7-1.2) mg/dL Glucose 344 H (65-100) mg/dL POC Glucose (70-105) Calcium 6.5 L (8.4-10.2) mg/dL Alkaline Phosphatase 255 H (35-129) units/L Total Protein 5.3 L (6.3-8.2) g/dL Albumin 3.1 L (3.9-5) g/dL
--- NOTE | 2016-12-16 18:47 | Progress Note ---
Assessment and Plan Patient alert, awake. Resting on nasal canula 2 litres. O2 saturation 98%. No complaint of chest pain or shortness of breath. - Patient Problems (1) Shortness of breath Current Visit: No Status: Acute Plan to address problem: Shortness of breath improved. No acute respiratory distress. O2 saturation 98% on 2 litres O2. (2) Diabetic ketoacidosis Current Visit: Yes Status: Acute Qualifiers: Diabetes mellitus type: D Diabetes mellitus complication detail: D Plan to address problem: Improving. Bicarb 25 today. 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 (4) ESRD (end stage renal disease) on dialysis Current Visit: No Status: Chronic Plan to address problem: Management as per nephrology. (5) Hx of CABG Current Visit: No Status: Chronic Plan to address problem: Management as per primary care and cardiology. (6) Hypertension Current Visit: No Status: Chronic Qualifiers: Hypertension type: essential hypertension Qualified Code(s): I10 - Essential (primary) hypertension Plan to address problem: Management as per primary care. Subjective Date of service: 12/16/16 Principal diagnosis: N/V/D Interval history: Patient alert, awake. Resting on nasal canula 2 litres. O2 saturation 98%. No complaint of chest pain or shortness of breath. Objective Vital Signs - 12hr 12/16/16 12/16/16 12/16/16 08:37 10:10 10:20 Temperature 98 F 98.0 F Pulse Rate 77 64 64 Respiratory 18 20 Rate Blood Pressure 117/58 122/58 Blood Pressure 164/61 [Left] O2 Sat by Pulse 98 Oximetry 12/16/16 12/16/16 12/16/16 10:30 10:45 11:00 Temperature Pulse Rate 63 65 65 Respiratory Rate Blood Pressure 128/52 130/64 134/65 Blood Pressure [Left] O2 Sat by Pulse Oximetry 12/16/16 12/16/16 12/16/16 11:15 11:30 11:45 Temperature Pulse Rate 64 65 64 Respiratory Rate Blood Pressure 142/65 145/68 134/72 Blood Pressure [Left] O2 Sat by Pulse Oximetry 12/16/16 12/16/16 12/16/16 12:00 12:15 12:30 Temperature Pulse Rate 74 75 72 Respiratory Rate Blood Pressure 165/71 149/60 168/58 Blood Pressure [Left] O2 Sat by Pulse Oximetry 12/16/16 12/16/16 12/16/16 12:45 13:00 13:15 Temperature Pulse Rate 71 72 71 Respiratory Rate Blood Pressure 167/75 168/77 178/80 Blood Pressure [Left] O2 Sat by Pulse Oximetry 12/16/16 12/16/16 12/16/16 13:30 13:45 13:50 Temperature Pulse Rate 40 L 69 75 Respiratory Rate Blood Pressure 182/82 171/71 183/79 Blood Pressure [Left] O2 Sat by Pulse Oximetry 12/16/16 12/16/16 12/16/16 14:10 14:58 15:19 Temperature 98.3 F 98.4 F Pulse Rate 72 78 78 Respiratory 20 18 Rate Blood Pressure 166/83 164/65 Blood Pressure 164/65 [Left] O2 Sat by Pulse 98 Oximetry 12/16/16 15:24 Temperature Pulse Rate 78 Respiratory Rate Blood Pressure 164/65 Blood Pressure [Left] O2 Sat by Pulse Oximetry Constitutional: no acute distress, alert Eyes: non-icteric ENT: oropharynx moist, other (no aphthous / stephy-oral ulcers) Neck: supple, no lymphadenopathy, no JVD, other (no thyromegaly) Effort: normal Ascultation: Bilateral: diminished breath sounds Cardiovascular: regular rate and rhythm Gastrointestinal: normoactive bowel sounds, soft, non-tender, non-distended, other (No HSM) Integumentary: normal, other (No tenting; normal turgor) Extremities: no cyanosis, no edema, pulses normal, no ischemia or petechiae, other (bilateral BKA) Neurologic: normal mental status, non-focal exam, pupils equal and round, motor strength normal and, other (EOMI) Psychiatric: mood appropriate, affect normal CBC and BMP: 12/16/16 08:34 12/16/16 08:34 Abnormal lab findings: Abnormal Labs 12/13/16 12/13/16 12/13/16 07:07 07:25 07:25 RBC Hgb Hct MCV MCH RDW Lymph % (Auto) Thayer % (Auto) Lymph # Seg Neutrophils % Sodium Potassium Chloride 90.8 L Carbon Dioxide BUN 70 H Creatinine 6.8 H Glucose 545 H* POC Glucose 493 H Calcium 7.0 L Phosphorus 5.80 H ALT Alkaline Phosphatase Total Protein Albumin 12/13/16 12/13/16 12/13/16 09:48 09:56 11:21 RBC Hgb Hct MCV MCH RDW Lymph % (Auto) Thayer % (Auto) Lymph # Seg Neutrophils % Sodium Potassium Chloride 92.3 L Carbon Dioxide BUN 72 H Creatinine 6.4 H Glucose 266 H POC Glucose 277 H 167 H Calcium 6.9 L Phosphorus ALT Alkaline Phosphatase Total Protein Albumin 12/13/16 12/13/16 12/13/16 12:31 13:35 13:35 RBC Hgb Hct MCV MCH RDW Lymph % (Auto) Thayer % (Auto) Lymph # Seg Neutrophils % Sodium Potassium Chloride 89.8 L Carbon Dioxide BUN 72 H Creatinine 6.9 H Glucose 128 H POC Glucose 124 H 124 H Calcium 7.3 L Phosphorus ALT Alkaline Phosphatase Total Protein Albumin 12/13/16 12/13/16 12/13/16 14:32 15:24 15:32 RBC Hgb Hct MCV MCH RDW Lymph % (Auto) Thayer % (Auto) Lymph # Seg Neutrophils % Sodium 136 L Potassium Chloride 91.4 L Carbon Dioxide BUN 73 H Creatinine 6.6 H Glucose 133 H POC Glucose 139 H 132 H Calcium 7.0 L Phosphorus ALT Alkaline Phosphatase Total Protein Albumin 12/13/16 12/13/16 12/13/16 16:24 17:33 18:24 RBC Hgb Hct MCV MCH RDW Lymph % (Auto) Thayer % (Auto) Lymph # Seg Neutrophils % Sodium Potassium Chloride Carbon Dioxide BUN Creatinine Glucose POC Glucose 137 H 120 H 129 H Calcium Phosphorus ALT Alkaline Phosphatase Total Protein Albumin 12/13/16 12/14/16 12/14/16 19:58 02:27 02:41 RBC 3.39 L Hgb Hct MCV 100 H MCH RDW 17.4 H Lymph % (Auto) 10.5 L Thayer % (Auto) 10.4 H Lymph # 0.8 L Seg Neutrophils % 78.6 H Sodium Potassium Chloride Carbon Dioxide BUN Creatinine Glucose POC Glucose 129 H 147 H Calcium Phosphorus ALT Alkaline Phosphatase Total Protein Albumin 12/14/16 12/14/16 12/14/16 03:15 04:00 05:14 RBC Hgb Hct MCV MCH RDW Lymph % (Auto) Thayer % (Auto) Lymph # Seg Neutrophils % Sodium Potassium 3.3 L D Chloride 95.5 L Carbon Dioxide BUN 30 H Creatinine 3.8 H Glucose 158 H POC Glucose 175 H 119 H Calcium Phosphorus ALT 73 H Alkaline Phosphatase 248 H Total Protein 5.7 L Albumin 3.2 L 12/14/16 12/14/16 12/14/16 06:05 06:14 09:13 RBC Hgb Hct MCV MCH RDW Lymph % (Auto) Thayer % (Auto) Lymph # Seg Neutrophils % Sodium Potassium 3.4 L Chloride 93.8 L Carbon Dioxide BUN 32 H Creatinine 3.8 H Glucose 142 H POC Glucose 132 H 110 H Calcium Phosphorus ALT Alkaline Phosphatase Total Protein Albumin 12/14/16 12/14/16 12/14/16 11:15 12:26 13:26 RBC Hgb Hct MCV MCH RDW Lymph % (Auto) Thayer % (Auto) Lymph # Seg Neutrophils % Sodium Potassium Chloride Carbon Dioxide BUN Creatinine Glucose POC Glucose 112 H 123 H 144 H Calcium Phosphorus ALT Alkaline Phosphatase Total Protein Albumin 12/14/16 12/14/16 12/14/16 15:40 15:56 15:56 RBC 3.07 L Hgb 9.7 L Hct 30.0 L MCV 98 H MCH RDW 16.8 H Lymph % (Auto) 10.2 L Thayer % (Auto) 8.9 H Lymph # 0.9 L Seg Neutrophils % 79.3 H Sodium Potassium Chloride 93.2 L Carbon Dioxide BUN 39 H Creatinine 4.8 H Glucose 103 H POC Glucose 109 H Calcium 7.6 L Phosphorus ALT Alkaline Phosphatase Total Protein Albumin 12/15/16 12/15/16 12/15/16 06:42 10:50 10:50 RBC 2.96 L Hgb 9.3 L Hct 29.3 L MCV 99 H MCH RDW 16.7 H Lymph % (Auto) 12.7 L Thayer % (Auto) 8.3 H Lymph # 0.8 L Seg Neutrophils % 77.7 H Sodium 134 L Potassium Chloride 91.6 L Carbon Dioxide 21 L D BUN 48 H Creatinine 5.7 H Glucose 159 H POC Glucose 142 H Calcium 6.9 L Phosphorus ALT Alkaline Phosphatase 230 H Total Protein 5.3 L Albumin 3.1 L 12/15/16 12/15/16 12/15/16 12:00 16:59 22:21 RBC Hgb Hct MCV MCH RDW Lymph % (Auto) Thayer % (Auto) Lymph # Seg Neutrophils % Sodium Potassium Chloride Carbon Dioxide BUN Creatinine Glucose POC Glucose 163 H 225 H 260 H Calcium Phosphorus ALT Alkaline Phosphatase Total Protein Albumin 12/16/16 12/16/16 12/16/16 06:21 08:34 08:34 RBC 2.92 L Hgb 9.5 L Hct 28.2 L MCV MCH 33 H RDW 16.2 H Lymph % (Auto) Thayer % (Auto) 9.6 H Lymph # 0.7 L Seg Neutrophils % 73.6 H Sodium 133 L Potassium Chloride 91.6 L Carbon Dioxide BUN 59 H Creatinine 6.6 H Glucose 344 H POC Glucose 323 H Calcium 6.5 L Phosphorus ALT Alkaline Phosphatase 255 H Total Protein 5.3 L Albumin 3.1 L 12/16/16 12/16/16 14:53 17:13 RBC Hgb Hct MCV MCH RDW Lymph % (Auto) Thayer % (Auto) Lymph # Seg Neutrophils % Sodium Potassium Chloride Carbon Dioxide BUN Creatinine Glucose POC Glucose 234 H 326 H Calcium Phosphorus ALT Alkaline Phosphatase Total Protein Albumin Allied health notes reviewed: nursing
[2016-12-17] MEDS: FLAGYL 500 MG/100 ML 500 MG/100 ML BAG IV SCH ×3 (00:37→17:48)
[2016-12-17] MEDS: HEPARIN SUB-Q SCH ×2 (06:02→14:09)
[2016-12-17] MEDS: NOVOLOG SUB-Q SCH ×3 (07:41→17:51)
--- NOTE | 2016-12-17 09:45 | XRay Report ---
Chest 2 views: Compared to 11/16/16. History: Hypertension and ESRD. Findings: Mild cardiomegaly. Trachea is midline. Mild pulmonary venous congestion. Decrease in congestion compared to previous study. Normal CP angles. Impression: Cardiomegaly with mild pulmonary venous congestion
--- NOTE | 2016-12-17 10:47 | Discharge Summary ---
Providers - Providers Date of Admission: 12/13/16 06:21 Attending physician: IMTIAZ LUU MD 12/13/16 06:23 Consult to Dietitian/Nutrition [CONS] Routine Physician Instructions: Reason For Exam: DKA Reason for Consult: Nutrition Recommendations Reason for Consult: Diet education 12/13/16 06:24 Consult to Physician [CONS] Routine Consulting Provider: IRMA DE LA FUENTE Reason For Exam: ESRD on HD Place consult to:: Nephrology Notified:: y Was contact made?: Yes If yes, spoke with:: DR DE LA FUENTE Consult to Physician [CONS] Routine Consulting Provider: LATASHA CLEMENTE Reason For Exam: DKA ICU admission Place consult to:: Dr. Clemente Notified:: Answering Service Phone number called:: [phone] Was contact made?: No 12/13/16 06:27 Consult to Physician [CONS] Routine Consulting Provider: [facility] Reason For Exam: abdominal pain Place consult to:: GI Notified:: Y Was contact made?: Yes If yes, spoke with:: A/S Time called:: 10:35 Primary care physician: RN CORRECTIONAL Hospitalization Reason for admission: DKA, ESRD, gastroenteritis Condition: Stable Pertinent studies: CT abdomen and pelvis possible entritis Hospital course: 56-year-old -[place] female with past medical history significant for diabetes mellitus type 2, end-stage renal disease on hemodialysis, hypertension , CAD status post CABG, bilateral BKA presented to the emergency department complaining of abdominal pain that started yesterday. She says the pain is sharp, mostly on the lower abdomen 10 out of 10 in intensity with no radiation. The pain is also added was nausea, vomiting, diarrhea. She says the diarrhea is watery, massive, foul-smelling. The vomiting contains blood. Patient denied chest pain, difficulty of breathing, palpitation. Patient has been on insulin. Patient was managed for DKA according to DKA protocol and resolved. Patient was treated with metronidazole and symptomatic treatment for nausea and vomitting. GI was consulted and recommendation appreciated. Nephrology was consulted and hemodialysis was continued. Patient's abdominal pain, nausea and vomiting resolved. Patient is hemodynamically stable. Patient was discharged home. Patient's questions and concerns were addressed at the bedside. Disposition: - TO HOME OR SELFCARE Time spent for discharge: 31 minutes - Discharge Diagnoses (1) Diabetic ketoacidosis Status: Acute Qualifiers: Diabetes mellitus type: D Diabetes mellitus complication detail: D (2) Diarrhea Status: Acute Qualifiers: Diarrhea type: unspecified type Qualified Code(s): R19.7 - Diarrhea, unspecified (3) Hyperglycemia due to type 2 diabetes mellitus Status: Acute Qualifiers: Diabetes mellitus detention insulin use: with detention use Qualified Code( s): E11.65 - Type 2 diabetes mellitus with hyperglycemia; Z79.4 - residential ( current) use of insulin; Z79.4 - terminal operator (current) use of insulin; Z79.4 - residential (current) use of insulin; Z79.4 - residential (current) use of insulin (4) Nausea & vomiting Status: Acute Qualifiers: Vomiting type: unspecified Vomiting Intractability: intractable Qualified Code(s): R11.2 - Nausea with vomiting, unspecified (5) End stage renal disease on dialysis due to type 2 diabetes mellitus Status: Acute Core Measure Documentation - Palliative Care Palliative Care/ Comfort Measures: Not Applicable - Core Measures Any of the following diagnoses?: none Exam - Physical Exam Narrative exam: Not in cardiopulmonary distress. The patient appeared well nourished and normally developed. Vital signs as documented. Head exam is unremarkable. No scleral icterus . Neck is without jugular venous distension, thyromegaly, or carotid bruits. Lungs are clear to auscultation. Cardiac exam reveals regular rate and Rhythm. First and second heart sounds normal. No murmurs, rubs or gallops. Abdominal exam reveals lower abdominal tenderness, no guarding or rigidity. Extremities bilateral BKA. 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 No focal weakness. - Constitutional Vitals: Temp Pulse Resp BP Pulse Ox 98.6 F 67 20 114/46 100 12/16/16 21:18 12/16/16 21:18 12/16/16 23:22 12/16/16 21:40 12/16/16 21:18 Plan Activity: other (Bilateral amputee) Weight Bearing Status: Non-Weight Bearing Diet: low cholesterol, low salt, diabetic, renal Follow up with: PRIMARY CARE, [Primary Care Provider] - 3-5 Days Prescriptions: Loperamide [Imodium] 2 mg PO Q2HR PRN #12 capsule PRN Reason: Diarrhea
[2016-12-17 11:00] LABS: ISTAT Base Excess 4; ISTAT DEVICE 0; ISTAT PCO2 38.2 (35-45); ISTAT PH 7.473 (7.35-7.45); ISTAT PO2 67 (80-105); ISTAT SO2 94; ISTAT TCO2 29
[2016-12-17] MEDS: SENSIPAR PO SCH (11:03)
[2016-12-17] MEDS: PHOSLO PO SCH ×3 (11:03→17:51)
[2016-12-17] MEDS: HALFPRIN EC PO SCH (11:03)
[2016-12-17] MEDS: PROTONIX PO SCH (11:04)
[2016-12-17] MEDS: ZETIA PO SCH (11:04)
[2016-12-17] MEDS: APRESOLINE PO SCH (11:07)
[2016-12-17] MEDS: NORVASC PO SCH (11:08)
[2016-12-17] MEDS: ZESTRIL PO SCH (11:08)
[2016-12-17] MEDS: LOPRESSOR PO SCH (11:08)
[2016-12-17] MEDS: VITAMIN B-12 PO SCH (12:42)
[2016-12-17] MEDS: FOLBEE PLUS CZ PO SCH (12:42)
--- NOTE | 2016-12-17 13:14 | Progress Note ---
Assessment and Plan ESRD on hemodialysis secondary to diabetic nephropathy/hypertensive nephrosclerosis: -On HD TTS outpatient via LUE AVF -s/p HD yesterday, no HD today -Check BMP/Mg/Phos daily -Renally dose all meds DKA now resolved Diabetes mellitus type 2 on insulin: -s/p Insulin drip, now on ISS -Per primary Essential hypertension: -Titrate BP meds to keep SBP <140 in the setting of ESRD Diarrhea: -On flagyl -GI on board CAD s/p CABG: -On ASA, statin, bblocker -Denies chest pain Hyperlipidemia, chronic: -Target LDL <70 -On statin and Zetia Anemia of chronic disease due to ESRD: -Epogen to keep Hg 10-12 Secondary Hyperparathyroidism (2HPT): -On Sensipar Bone metabolic disease: -On phos binder -Monitor phos daily Fred Turcios MD Nephrology, Hypertension, Transplantation, Dialysis Phone no: [phone] Subjective Date of service: 12/17/16 Principal diagnosis: DKA Interval history: Nausea, vomiting better. Denies CP/SHOB. s/p HD yesterday. Objective - Exam Narrative Exam: GE: AAOX3 HEEENT: PERRLA Neck: No JVD Chest: CTAB CVS: RRR Abd: Soft/NT/ND/BS+ Ext: No cce, LUE AVF with good thrill Psych: Appropriate mood - Vital Signs Vital signs: Vital Signs - 12hr 12/17/16 12/17/16 08:05 11:07 Temperature 98.5 F Pulse Rate 73 69 Respiratory 18 Rate Blood Pressure 124/50 119/40 O2 Sat by Pulse 93 Oximetry - Lab 12/16/16 08:34 12/16/16 08:34 Most recent lab results Calcium 6.5 mg/dL (8.4-10.2) L 12/16/16 08:34 Phosphorus 3.50 mg/dL (2.5-4.5) D 12/14/16 03:15 Magnesium 1.90 mg/dL (1.7-2.3) 12/13/16 07:25
[2016-12-17 14:01] LABS: Chloride 92.6 mmol/L (98-107); Potassium 3.9 mmol/L (3.6-5.0)
[2016-12-17 15:41] VITALS: BP 120/63
--- NOTE | 2016-12-17 18:47 | Progress Note ---
Assessment and Plan Patient alert, awake. Resting on nasal canula 2 litres. O2 saturation 98%. No complaint of chest pain or shortness of breath. - Patient Problems (1) Shortness of breath Current Visit: No Status: Acute Plan to address problem: Shortness of breath improved. No acute respiratory distress. O2 saturation 98% on 2 litres O2. (2) Diabetic ketoacidosis Current Visit: Yes Status: Acute Qualifiers: Diabetes mellitus type: D Diabetes mellitus complication detail: D Plan to address problem: Improving. Bicarb 25 today. 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 (4) ESRD (end stage renal disease) on dialysis Current Visit: No Status: Chronic Plan to address problem: Management as per nephrology. (5) Hx of CABG Current Visit: No Status: Chronic Plan to address problem: Management as per primary care and cardiology. (6) Hypertension Current Visit: No Status: Chronic Qualifiers: Hypertension type: essential hypertension Qualified Code(s): I10 - Essential (primary) hypertension Plan to address problem: Management as per primary care. Subjective Date of service: 12/17/16 Principal diagnosis: DKA Interval history: Patient alert, awake. Resting on nasal canula 2 litres. O2 saturation 98%. No complaint of chest pain or shortness of breath. Objective Vital Signs - 12hr 12/17/16 12/17/16 12/17/16 08:05 11:07 15:36 Temperature 98.5 F 98.3 F Pulse Rate 73 69 66 Respiratory 18 20 Rate Blood Pressure 124/50 119/40 120/63 O2 Sat by Pulse 93 98 Oximetry Constitutional: no acute distress, alert Eyes: non-icteric ENT: oropharynx moist, other (no aphthous / stephy-oral ulcers) Neck: supple, no lymphadenopathy, no JVD, other (no thyromegaly) Effort: normal Ascultation: Bilateral: diminished breath sounds Cardiovascular: regular rate and rhythm Gastrointestinal: normoactive bowel sounds, soft, non-tender, non-distended, other (No HSM) Integumentary: normal, other (No tenting; normal turgor) Extremities: no cyanosis, no edema, pulses normal, no ischemia or petechiae, other (bilateral BKA) Neurologic: normal mental status, non-focal exam, pupils equal and round, motor strength normal and, other (EOMI) Psychiatric: mood appropriate, affect normal CBC and BMP: 12/16/16 08:34 12/17/16 13:24 ABG, PT/INR, D-dimer: ABG POC ABG pH 7.473 (7.35-7.45) H 12/17/16 10:42 POC ABG pCO2 38.2 (35-45) 12/17/16 10:42 POC ABG pO2 67 (80-105) L 12/17/16 10:42 POC ABG HCO3 28.0 12/17/16 10:42 POC ABG Total CO2 29 12/17/16 10:42 POC ABG O2 Sat 94 12/17/16 10:42 Abnormal lab findings: Abnormal Labs 12/13/16 12/13/16 12/13/16 07:07 07:25 07:25 RBC Hgb Hct MCV MCH RDW Lymph % (Auto) Baxter % (Auto) Lymph # Seg Neutrophils % POC ABG pH POC ABG pO2 Sodium Potassium Chloride 90.8 L Carbon Dioxide BUN 70 H Creatinine 6.8 H Glucose 545 H* POC Glucose 493 H Calcium 7.0 L Phosphorus 5.80 H ALT Alkaline Phosphatase Total Protein Albumin 12/13/16 12/13/16 12/13/16 09:48 09:56 11:21 RBC Hgb Hct MCV MCH RDW Lymph % (Auto) Baxter % (Auto) Lymph # Seg Neutrophils % POC ABG pH POC ABG pO2 Sodium Potassium Chloride 92.3 L Carbon Dioxide BUN 72 H Creatinine 6.4 H Glucose 266 H POC Glucose 277 H 167 H Calcium 6.9 L Phosphorus ALT Alkaline Phosphatase Total Protein Albumin 12/13/16 12/13/16 12/13/16 12:31 13:35 13:35 RBC Hgb Hct MCV MCH RDW Lymph % (Auto) Baxter % (Auto) Lymph # Seg Neutrophils % POC ABG pH POC ABG pO2 Sodium Potassium Chloride 89.8 L Carbon Dioxide BUN 72 H Creatinine 6.9 H Glucose 128 H POC Glucose 124 H 124 H Calcium 7.3 L Phosphorus ALT Alkaline Phosphatase Total Protein Albumin 12/13/16 12/13/16 12/13/16 14:32 15:24 15:32 RBC Hgb Hct MCV MCH RDW Lymph % (Auto) Baxter % (Auto) Lymph # Seg Neutrophils % POC ABG pH POC ABG pO2 Sodium 136 L Potassium Chloride 91.4 L Carbon Dioxide BUN 73 H Creatinine 6.6 H Glucose 133 H POC Glucose 139 H 132 H Calcium 7.0 L Phosphorus ALT Alkaline Phosphatase Total Protein Albumin 12/13/16 12/13/16 12/13/16 16:24 17:33 18:24 RBC Hgb Hct MCV MCH RDW Lymph % (Auto) Baxter % (Auto) Lymph # Seg Neutrophils % POC ABG pH POC ABG pO2 Sodium Potassium Chloride Carbon Dioxide BUN Creatinine Glucose POC Glucose 137 H 120 H 129 H Calcium Phosphorus ALT Alkaline Phosphatase Total Protein Albumin 12/13/16 12/14/16 12/14/16 19:58 02:27 02:41 RBC 3.39 L Hgb Hct MCV 100 H MCH RDW 17.4 H Lymph % (Auto) 10.5 L Baxter % (Auto) 10.4 H Lymph # 0.8 L Seg Neutrophils % 78.6 H POC ABG pH POC ABG pO2 Sodium Potassium Chloride Carbon Dioxide BUN Creatinine Glucose POC Glucose 129 H 147 H Calcium Phosphorus ALT Alkaline Phosphatase Total Protein Albumin 12/14/16 12/14/16 12/14/16 03:15 04:00 05:14 RBC Hgb Hct MCV MCH RDW Lymph % (Auto) Baxter % (Auto) Lymph # Seg Neutrophils % POC ABG pH POC ABG pO2 Sodium Potassium 3.3 L D Chloride 95.5 L Carbon Dioxide BUN 30 H Creatinine 3.8 H Glucose 158 H POC Glucose 175 H 119 H Calcium Phosphorus ALT 73 H Alkaline Phosphatase 248 H Total Protein 5.7 L Albumin 3.2 L 12/14/16 12/14/16 12/14/16 06:05 06:14 09:13 RBC Hgb Hct MCV MCH RDW Lymph % (Auto) Baxter % (Auto) Lymph # Seg Neutrophils % POC ABG pH POC ABG pO2 Sodium Potassium 3.4 L Chloride 93.8 L Carbon Dioxide BUN 32 H Creatinine 3.8 H Glucose 142 H POC Glucose 132 H 110 H Calcium Phosphorus ALT Alkaline Phosphatase Total Protein Albumin 12/14/16 12/14/16 12/14/16 11:15 12:26 13:26 RBC Hgb Hct MCV MCH RDW Lymph % (Auto) Baxter % (Auto) Lymph # Seg Neutrophils % POC ABG pH POC ABG pO2 Sodium Potassium Chloride Carbon Dioxide BUN Creatinine Glucose POC Glucose 112 H 123 H 144 H Calcium Phosphorus ALT Alkaline Phosphatase Total Protein Albumin 12/14/16 12/14/16 12/14/16 15:40 15:56 15:56 RBC 3.07 L Hgb 9.7 L Hct 30.0 L MCV 98 H MCH RDW 16.8 H Lymph % (Auto) 10.2 L Baxter % (Auto) 8.9 H Lymph # 0.9 L Seg Neutrophils % 79.3 H POC ABG pH POC ABG pO2 Sodium Potassium Chloride 93.2 L Carbon Dioxide BUN 39 H Creatinine 4.8 H Glucose 103 H POC Glucose 109 H Calcium 7.6 L Phosphorus ALT Alkaline Phosphatase Total Protein Albumin 12/15/16 12/15/16 12/15/16 06:42 10:50 10:50 RBC 2.96 L Hgb 9.3 L Hct 29.3 L MCV 99 H MCH RDW 16.7 H Lymph % (Auto) 12.7 L Baxter % (Auto) 8.3 H Lymph # 0.8 L Seg Neutrophils % 77.7 H POC ABG pH POC ABG pO2 Sodium 134 L Potassium Chloride 91.6 L Carbon Dioxide 21 L D BUN 48 H Creatinine 5.7 H Glucose 159 H POC Glucose 142 H Calcium 6.9 L Phosphorus ALT Alkaline Phosphatase 230 H Total Protein 5.3 L Albumin 3.1 L 12/15/16 12/15/16 12/15/16 12:00 16:59 22:21 RBC Hgb Hct MCV MCH RDW Lymph % (Auto) Baxter % (Auto) Lymph # Seg Neutrophils % POC ABG pH POC ABG pO2 Sodium Potassium Chloride Carbon Dioxide BUN Creatinine Glucose POC Glucose 163 H 225 H 260 H Calcium Phosphorus ALT Alkaline Phosphatase Total Protein Albumin 12/16/16 12/16/16 12/16/16 06:21 08:34 08:34 RBC 2.92 L Hgb 9.5 L Hct 28.2 L MCV MCH 33 H RDW 16.2 H Lymph % (Auto) Baxter % (Auto) 9.6 H Lymph # 0.7 L Seg Neutrophils % 73.6 H POC ABG pH POC ABG pO2 Sodium 133 L Potassium Chloride 91.6 L Carbon Dioxide BUN 59 H Creatinine 6.6 H Glucose 344 H POC Glucose 323 H Calcium 6.5 L Phosphorus ALT Alkaline Phosphatase 255 H Total Protein 5.3 L Albumin 3.1 L 12/16/16 12/16/16 12/16/16 14:53 17:13 21:27 RBC Hgb Hct MCV MCH RDW Lymph % (Auto) Baxter % (Auto) Lymph # Seg Neutrophils % POC ABG pH POC ABG pO2 Sodium Potassium Chloride Carbon Dioxide BUN Creatinine Glucose POC Glucose 234 H 326 H 262 H Calcium Phosphorus ALT Alkaline Phosphatase Total Protein Albumin 12/17/16 12/17/16 12/17/16 05:58 10:31 10:42 RBC Hgb Hct MCV MCH RDW Lymph % (Auto) Baxter % (Auto) Lymph # Seg Neutrophils % POC ABG pH 7.468 H 7.473 H POC ABG pO2 43 L 67 L Sodium Potassium Chloride Carbon Dioxide BUN Creatinine Glucose POC Glucose 147 H Calcium Phosphorus ALT Alkaline Phosphatase Total Protein Albumin 12/17/16 12/17/16 12/17/16 12:11 13:24 16:21 RBC Hgb Hct MCV MCH RDW Lymph % (Auto) Baxter % (Auto) Lymph # Seg Neutrophils % POC ABG pH POC ABG pO2 Sodium 133 L Potassium Chloride 92.6 L Carbon Dioxide BUN 31 H Creatinine 4.8 H Glucose 309 H POC Glucose 326 H 189 H Calcium 7.0 L Phosphorus ALT Alkaline Phosphatase Total Protein Albumin Chest x-ray: report reviewed (Cardiomegaly with mild pulmonary venous congestion.), image reviewed Allied health notes reviewed: nursing
[2016-12-18 14:34] LABS: ISTAT Base Excess TNR
[2016-12-18 14:35] LABS: ISTAT HCO3 TNR; ISTAT PCO2 TNR (35-45); ISTAT PH TNR (7.35-7.45); ISTAT PO2 TNR (80-105); ISTAT SO2 TNR
[2016-12-18 14:36] LABS: ISTAT DEVICE TNR; ISTAT TCO2 TNR
== END 2016-12-17 18:40 | disposition home or self-care (01) | DRG 637 ==
LOC: ED 01:16 → CC1 06:21 → 4A 18:44 → CC1 19:44 → 3A 12-14 17:36
PROVIDERS: ADMIT Internal Medicine; ATTEND Internal Medicine
PROC: 5A1D70Z Performance of Urinary Filtration, Intermittent, Less than 6 Hours Per Day (ICD-10-PCS; 2016-12-13)
PROC: 5A1D70Z Performance of Urinary Filtration, Intermittent, Less than 6 Hours Per Day (ICD-10-PCS; 2016-12-14)
PROC: 5A1D70Z Performance of Urinary Filtration, Intermittent, Less than 6 Hours Per Day (ICD-10-PCS; 2016-12-16)
PROC: 4A033R1 Measurement of Arterial Saturation, Peripheral, Percutaneous Approach (ICD-10-PCS; principal; 2016-12-17)
DX: E11.10 Type 2 diabetes mellitus with ketoacidosis without coma (principal); N18.6 End stage renal disease; I13.11 Hypertensive heart and chronic kidney disease without heart failure, with stage 5 chronic kidney disease, or end stage renal disease; E87.5 Hyperkalemia; R19.7 Diarrhea, unspecified; I25.10 Atherosclerotic heart disease of native coronary artery without angina pectoris; K21.9 Gastro-esophageal reflux disease without esophagitis; J45.909 Unspecified asthma, uncomplicated; E11.65 Type 2 diabetes mellitus with hyperglycemia; E11.22 Type 2 diabetes mellitus with diabetic chronic kidney disease; E11.51 Type 2 diabetes mellitus with diabetic peripheral angiopathy without gangrene; Z95.5 Presence of coronary angioplasty implant and graft; Z95.1 Presence of aortocoronary bypass graft; Z79.899 Other long term (current) drug therapy; Z99.2 Dependence on renal dialysis; I25.2 Old myocardial infarction; Z91.041 Radiographic dye allergy status; Z91.013 Allergy to seafood; Z79.82 Long term (current) use of aspirin; Z89.512 Acquired absence of left leg below knee; Z89.511 Acquired absence of right leg below knee
CPT/HCPCS: 36415; 36600; 71020; 74022; 74176; 80048; 80053; 80074; 82803; 82962; 83735; 83930; 84100; 85025; 93005; 93010; 96365; 96372; 96375; 96376; A9270-GY; J0885; J1170; J1644; J1815; J2270; J2405; J7030